=== PATIENT | male | born 1940 | race Caucasian/White ===

== ENCOUNTER 2016-08-19 18:26 | Inpatient (IN) | payer MEDICARE ==
[2016-08-19] MEDS ORDERED: ATIVAN ONE (18:28)
[2016-08-19] MEDS ORDERED: TYLENOL PR ONE ×2 (18:28→18:32)
[2016-08-19] MEDS ORDERED: ATIVAN IV ONE (18:32)
[2016-08-19] MEDS ORDERED: NACL 0.9% 1000 ML 1,000 ML IV ONE (18:36)
[2016-08-19] MEDS ORDERED: NACL 0.9% 1000 ML 1,000 ML ONE (18:38)
--- NOTE | 2016-08-19 18:50 | Emergency Department Report ---
ED General Adult HPI - General Chief complaint: Altered Mental Status Stated complaint: UNRESPONSIVE Time Seen by Provider: 08/19/16 18:43 Source: EMS Mode of arrival: Stretcher Limitations: No Limitations - History of Present Illness Initial comments: She is a 75-year-old male with history of hypertension, hyperlipidemia, coronary artery disease, CHF, TIAs and history of seizure disorder brought in by ambulance because of being confused and less talkative. Patient has apparent baseline of walking and talking. Story is entirely provided by EMS as well as son who arrived to the ER. Upon arrival to the ER the patient had a focal seizure of right upper extremity with right-sided gaze deviation. I came in and immediately upon patient arrival to the ER and assessed the patient and gave 2 mg IV Ativan with resolution of seizure in about 2-3 minutes. Her son patient had been acting normal during the day. He had not complained of anything including no cough, fever, chest pain. He had apparently become confused and called and was answering questions inappropriately. Upon arrival of EMS patient was also confused. - Related Data Home Medications Medication Instructions Recorded Confirmed Last Taken Lisinopril [Zestril TAB] 10 mg PO QDAY 02/02/15 08/19/16 Unknown levETIRAcetam [Keppra] 500 mg PO BID 08/19/16 08/19/16 Unknown Previous Rx's Medication Instructions Recorded Last Taken Type Atorvastatin [Lipitor] 40 mg PO QHS #30 tablet 08/27/14 Unknown Rx Carvedilol [Coreg] 6.25 mg PO BID #60 tablet 08/27/14 Unknown Rx Clopidogrel [Plavix] 75 mg PO QDAY #30 tablet 08/27/14 Unknown Rx Allergies Allergy/AdvReac Type Severity Reaction Status Date / Time No Known Allergies Allergy Verified 09/11/13 10:42 ED Review of Systems ROS: Stated complaint: UNRESPONSIVE Other details as noted in HPI Comment: Unobtainable due to pts medical conditions 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, pacemaker - Social History Smoking Status: Unknown if ever smoked - Medications Home Medications: Home Medications Medication Instructions Recorded Confirmed Last Taken Type Atorvastatin [Lipitor] 40 mg PO QHS #30 tablet 08/27/14 08/19/16 Unknown Rx Carvedilol [Coreg] 6.25 mg PO BID #60 tablet 08/27/14 08/19/16 Unknown Rx Clopidogrel [Plavix] 75 mg PO QDAY #30 tablet 08/27/14 08/19/16 Unknown Rx Lisinopril [Zestril TAB] 10 mg PO QDAY 02/02/15 08/19/16 Unknown History levETIRAcetam [Keppra] 500 mg PO BID 08/19/16 08/19/16 Unknown History ED Physical Exam - General Limitations: Altered Mental Status General appearance: other (actively seizing) - Head Head exam: Present: normal inspection - Eye Eye exam: Present: other (right sided gaze deviation) - Neck Neck exam: Present: normal inspection - Respiratory Respiratory exam: Present: normal lung sounds bilaterally - Cardiovascular Cardiovascular Exam: Present: regular rate, normal heart sounds - GI/Abdominal GI/Abdominal exam: Present: soft. Absent: tenderness - Extremities Exam Extremities exam: Present: normal capillary refill - Neurological Exam Neurological exam: Present: other (RUE tonic clonic seizure, right gaze deviation) - Skin Skin exam: Present: intact ED Course Vital Signs 08/19/16 08/19/16 08/19/16 18:31 18:47 19:27 Temperature 105.3 F H Pulse Rate 147 H 105 H 84 Pulse Rate [ Anterior Bilateral] Respiratory 24 22 29 H Rate Respiratory Rate [Anterior Bilateral] Blood Pressure 191/104 Blood Pressure 189/90 [Left] O2 Sat by Pulse 99 99 99 Oximetry 08/19/16 08/19/16 08/19/16 19:28 19:30 19:31 Temperature Pulse Rate 87 91 H 88 Pulse Rate [ Anterior Bilateral] Respiratory 29 H 30 H 30 H Rate Respiratory Rate [Anterior Bilateral] Blood Pressure 120/48 Blood Pressure [Left] O2 Sat by Pulse 99 100 99 Oximetry 08/20/16 08/20/16 00:52 01:06 Temperature Pulse Rate Pulse Rate [ 80 81 Anterior Bilateral] Respiratory Rate Respiratory 26 H 26 H Rate [Anterior Bilateral] Blood Pressure Blood Pressure [Left] O2 Sat by Pulse Oximetry - Reevaluation(s) Reevaluation #1: 08/19/16 19:34 She reassessed at bedside. Has not had any new seizure like activity. Heart rate has stabilized to 90s. Reevaluation #2: 08/19/16 23:14 Patient reassessed at bedside. He is more awake and alert but not at baseline. He can move all extremities. HR is 80s on monitor. Reevaluation #3: 08/20/16 01:54 Patient with wheezing at bedside, sat patient up, receiving albuterol treatment , moving around better, awake but still appears post ictal and not following commands; will admit due to not returning to baseline ED Medical Decision Making - Lab Data Result diagrams: 08/19/16 18:52 08/19/16 18:52 - Medical Decision Making IV, 2mg IV ativan, labs, cxr, ua, EKG, CT head CT head negative ekg shows paced rhythm The patient had an initial high fever and tachycardia, I believe that this is primarily due to his seizure. He down quickly after seizure resolved and his heart rate also normalized with the next half hour to hour. IV antibiotics were not initialized because of this. His lactate also supports this as it was initially very high and is lowered significantly without any intervention. Critical Care Time: Yes Critical care time in (mins) excluding proc time.: 30 Critical care attestation.: If time is entered above; I have spent that time in minutes in the direct care of this critically ill patient, excluding procedure time. ED Disposition Clinical Impression: Seizure Altered mental status Qualifiers: Altered mental status type: stupor Qualified Code(s): R40.1 - Stupor Disposition: OP ADMITTED IP TO THIS HOSP Is pt being admited?: Yes Condition: Serious Referrals: PRIMARY CARE,MD [Primary Care Provider] - 3-5 Days Time of Disposition: 01:51 (Spoke to Hospitalist)
[2016-08-19 19:06] LABS: Basophils % (Auto) 0.3 % (0.0-1.8); Eosinophils % (Auto) 0.7 % (0.0-4.3); Hematocrit 39.6 % (35.5-45.6); Hemoglobin 12.9 gm/dl (11.8-15.2); Mean Corpuscular HGB Conc 33 % (32-34); Mean Corpuscular Hemoglobin 30 pg (28-32); Mean Corpuscular Volume 92 fl (84-94); Platelet Count 116 K/mm3 (140-440); Red Cell Distribution Width 14.2 % (13.2-15.2); White Blood Count 9.6 K/mm3 (4.5-11.0)
[2016-08-19 19:30] LABS: Alanine Aminotransferase 21 units/L (7-56); Albumin 3.3 g/dL (3.9-5); Albumin/Globulin Ratio 1.1 %; Alkaline Phosphatase 102 units/L (35-129); BUN/Creatinine Ratio 15.45; Bilirubin,Total 0.8 mg/dL (0.1-1.2); Blood Urea Nitrogen 17 mg/dL (9-20); Calcium 7.3 mg/dL (8.4-10.2); Carbon Dioxide 18 mmol/L (22-30); Chloride 100.6 mmol/L (98-107); Glucose 168 mg/dL (75-100); Potassium 4.4 mmol/L (3.6-5.0); Sodium 135 mmol/L (137-145); Total Protein 6.3 g/dL (6.3-8.2)
[2016-08-19 19:36] LABS: Anion Gap 21 mmol/L
[2016-08-19 19:55] LABS: INR 1.33 (0.87-1.13)
[2016-08-19 19:56] LABS: Partial Thromboplastin Time 34.4 Sec. (24.2-36.6)
--- NOTE | 2016-08-19 20:43 | Cat Scan Report ---
FINAL REPORT PROCEDURE: CT HEAD/BRAIN WO CON TECHNIQUE: Computerized tomography of the head was performed without contrast material. HISTORY: seizure COMPARISON: 02/02/2015 FINDINGS: Skull and scalp: Normal. Paranasal sinuses: Normal. Ventricles and subarachnoid spaces: There is mild central and cortical atrophy. There is no hydrocephalus or asymmetry.. Cerebrum: No evidence of hemorrhage, acute infarction or mass. There are physiologic calcifications in the basal ganglia. Cerebellum and brainstem: No evidence of hemorrhage, acute infarction or mass. Vasculature: Normal. Comments: None. IMPRESSION: There is no acute intracranial abnormality.
[2016-08-20] MEDS ORDERED: PROVENTIL IH ONE (00:46)
[2016-08-20 01:44] LABS: Bilirubin,Urine NEG (Negative); Blood,Urine LG (Negative); Ketones,Urine NEG (Negative); Leukocyte Esterase,Urine NEG (Negative); Mucus,Urine FEW /HPF; Nitrite,Urine NEG (Negative); Protein,Urine >500 mg/dL (Negative); Urobilinogen,Urine < 2.0 mg/dL (<2.0)
[2016-08-20] MEDS ORDERED: ATIVAN IV PRN (03:27)
--- NOTE | 2016-08-20 03:36 | History and Physical Report ---
History of Present Illness Date of examination: 08/20/16 History of present illness: This is a 73-year-old man with history of hypertension, A. fib hyperlipidemia, coronary artery disease, seizure, diabetes and heart failure was brought to the emergency room for altered mental status. I tried to contact the family without success. Patient usually presents to the emergency with altered mental status, usually he has a seizure. It is unclear if he had a seizure today. Patient keeps repeating, "I am okay". Review of systems is unobtainable PAST SURGICAL HISTORY: Pacemaker, hernia repair,CABG, mitral valve replacement, Pacemaker upgrade to AICD SOCIAL HISTORY: Denies alcohol, tobacco, drugs FAMILY HISTORY: Lives with family Medications and Allergies Allergies Allergy/AdvReac Type Severity Reaction Status Date / Time No Known Allergies Allergy Verified 09/11/13 10:42 Home Medications Medication Instructions Recorded Confirmed Last Taken Type Atorvastatin [Lipitor] 40 mg PO QHS #30 tablet 08/27/14 08/19/16 Unknown Rx Carvedilol [Coreg] 6.25 mg PO BID #60 tablet 08/27/14 08/19/16 Unknown Rx Clopidogrel [Plavix] 75 mg PO QDAY #30 tablet 08/27/14 08/19/16 Unknown Rx Lisinopril [Zestril TAB] 10 mg PO QDAY 02/02/15 08/19/16 Unknown History levETIRAcetam [Keppra] 500 mg PO BID 08/19/16 08/19/16 Unknown History Active Meds: Active Medications Lorazepam (Ativan) 2 mg IV Q4H PRN PRN Reason: Seizures Exam - Physical Exam Narrative exam: General Apperance: The patient sitting in bed no acute distress HEENT: Normocephalic, atraumatic. Pupils equally round and reactive to light, extraocular movement intact, and no sclericterus or JVD or thyromegaly or nodule. Neck supple, no carotid bruit, mucous membranes moist, no exudate or erythema Heart: S1-S2, regular is rhythm Lungs: Clear to auscultation bilaterally, breathing comfortable Abdomen: Positive bowel sounds, soft, nontender, nondistended, no organomegaly Extremities: No edema cyanosis clubbing Skin: no rash, nodule, warm and dry Neuro: lethargic - Constitutional Vitals: Temp Pulse Resp BP Pulse Ox 98.4 F 70 22 102/54 100 08/20/16 01:36 08/20/16 02:01 08/20/16 02:01 08/20/16 02:01 08/20/16 02:01 Results - Labs CBC & Chem 7: 08/19/16 18:52 08/19/16 18:52 Labs: Abnormal lab results 08/19/16 08/19/16 08/19/16 Range/Units 18:52 18:52 18:52 Plt Count 116 L (140-440) K/mm3 Lymph % (Auto) 6.7 L (13.4-35.0) % Lymph # 0.6 L (1.2-5.4) K/mm3 Seg Neutrophils % 85.6 H (40.0-70.0) % Seg Neutrophils # 8.2 H (1.8-7.7) K/mm3 PT (12.2-14.9) Sec. INR (0.87-1.13) Sodium 135 L (137-145) mmol/L Carbon Dioxide 18 L (22-30) mmol/L Glucose 168 H (75-100) mg/dL Lactic Acid 4.1 H* (0.7-2.0) mmol/L Calcium 7.3 L (8.4-10.2) mg/dL NT-Pro-B Natriuret Pep (0-900) pg/mL Albumin 3.3 L (3.9-5) g/dL 08/19/16 08/19/16 Range/Units 19:22 21:37 Plt Count (140-440) K/mm3 Lymph % (Auto) (13.4-35.0) % Lymph # (1.2-5.4) K/mm3 Seg Neutrophils % (40.0-70.0) % Seg Neutrophils # (1.8-7.7) K/mm3 PT 16.4 H (12.2-14.9) Sec. INR 1.33 H (0.87-1.13) Sodium (137-145) mmol/L Carbon Dioxide (22-30) mmol/L Glucose (75-100) mg/dL Lactic Acid (0.7-2.0) mmol/L Calcium (8.4-10.2) mg/dL NT-Pro-B Natriuret Pep 4056 H (0-900) pg/mL Albumin (3.9-5) g/dL Assessment and Plan Altered mental status History of seizure A. fib Hyperlipidemia Hypertension Cardiomyopathy Thrombocytopenia History of CVA Admitted to medicine Will observe, do neurochecks hold off on further workup until more history is obtained DVT prophylaxis with SCD
[2016-08-20] MEDS ORDERED: KEPPRA 500 MG in D5W 100 ML IV ONE (03:42)
[2016-08-20] MEDS ORDERED: APRESOLINE IV PRN (03:44)
[2016-08-20] MEDS ORDERED: PROVENTIL IH PRN ×2 (04:00→08:00)
[2016-08-20] MEDS ORDERED: TYLENOL PO PRN (04:53)
[2016-08-20] MEDS ORDERED: ZOFRAN IV PRN (04:53)
[2016-08-20] MEDS ORDERED: DULCOLAX PR PRN (04:53)
[2016-08-20] MEDS ORDERED: MILK OF MAGNESIA PO PRN (04:53)
[2016-08-20] MEDS: PROVENTIL IH PRN ×2 (05:37→13:08)
--- NOTE | 2016-08-20 08:38 | XRay Report ---
Portable chest: There is mild enlargement of the heart. There is an ICD and pacer wire. There is a aortic valve prosthesis. There is vascular congestion and right pleural effusion. Compared to the prior study of March 11, 2016 the congestive changes are similar but the pleural effusions may be slightly less. Impression: Chronic CHF.
--- NOTE | 2016-08-20 10:59 | Progress Note ---
Assessment and Plan 1. Altered mental status secondary to metabolic encephalopathy: CT of the head showed no intracranial abnormalities. Continue with neuro checks 2. Seizure: Continue with Keppra 500 mg po bid. 3. A. fib: Stable. 4. Hyperlipidemia: Continue with statin. 5. Hypertension: Continue with antihypertensive meds. 6. History of CVA: Continue with clopidogrel 75 mg po qd, statin. 7. Thrombocytopenia: Stable 8. DVT prophylaxis: Continue with SCD 9. CHF:Continue with ALESSIO-I, beta bandar and diuretics. - Patient Problems (1) Altered mental status Current Visit: Yes Status: Acute Qualifiers: Altered mental status type: stupor Qualified Code(s): R40.1 - Stupor (2) Seizure Current Visit: Yes Status: Acute Subjective Date of service: 08/20/16 Interval history: Still confused. Objective - Constitutional Vitals: Vital Signs - 12hr 08/20/16 08/20/16 08/20/16 04:00 04:30 04:38 Temperature Pulse Rate 70 70 Pulse Rate [ Anterior Bilateral] Pulse Rate [ 70 Left Radial] Respiratory 26 H 26 H 20 Rate Respiratory Rate [Anterior Bilateral] Blood Pressure 109/55 103/59 Blood Pressure [Left Arm] O2 Sat by Pulse 97 99 Oximetry 08/20/16 08/20/16 08/20/16 05:37 05:52 07:00 Temperature 98.1 F Pulse Rate Pulse Rate [ 69 71 Anterior Bilateral] Pulse Rate [ 70 Left Radial] Respiratory 18 Rate Respiratory 18 18 Rate [Anterior Bilateral] Blood Pressure Blood Pressure 120/59 [Left Arm] O2 Sat by Pulse 99 Oximetry 08/20/16 09:08 Temperature Pulse Rate Pulse Rate [ Anterior Bilateral] Pulse Rate [ Left Radial] Respiratory Rate Respiratory Rate [Anterior Bilateral] Blood Pressure Blood Pressure [Left Arm] O2 Sat by Pulse 99 Oximetry General appearance: Present: no acute distress, well-nourished - EENT Eyes: PERRL, EOM intact ENT: hearing intact, clear oral mucosa Ears: bilateral: normal - Neck Neck: supple, normal ROM - Respiratory Respiratory effort: normal Respiratory: bilateral: CTA - Breasts Breasts: normal - Cardiovascular Rhythm: regular Heart Sounds: Present: S1 & S2. Absent: gallop, rub Extremities: pulses intact, No edema, normal color, Full ROM - Gastrointestinal General gastrointestinal: Present: soft, non-tender, non-distended, normal bowel sounds - Genitourinary Male genitourinary: normal - Integumentary Integumentary: clear, warm, dry - Musculoskeletal Musculoskeletal: 1, strength equal bilaterally - Neurologic Neurologic: moves all extremities - Psychiatric Psychiatric: other (still confused) - Labs CBC & Chem 7: 08/19/16 18:52 08/19/16 18:52
[2016-08-20] MEDS: ZESTRIL PO SCH (12:00)
[2016-08-20] MEDS: KEPPRA PO SCH ×2 (12:00→23:01)
[2016-08-20] MEDS: LOVENOX SUB-Q SCH (12:02)
[2016-08-20] MEDS: COREG PO SCH ×2 (12:02→23:00)
[2016-08-20] MEDS: DUONEB 0.5 MG-3 MG/3 ML SOLN IH SCH ×2 (13:51→19:22)
[2016-08-20] MEDS: PLAVIX PO SCH (17:45)
[2016-08-21] MEDS: PROVENTIL IH PRN (05:17)
[2016-08-21 06:39] LABS: Basophils % (Auto) 0.2 % (0.0-1.8); Eosinophils % (Auto) 0.1 % (0.0-4.3); Hematocrit 39.4 % (35.5-45.6); Hemoglobin 13.1 gm/dl (11.8-15.2); Mean Corpuscular HGB Conc 33 % (32-34); Mean Corpuscular Hemoglobin 30 pg (28-32); Mean Corpuscular Volume 90 fl (84-94); Red Blood Count 4.36 M/mm3 (3.65-5.03); White Blood Count 8.2 K/mm3 (4.5-11.0)
[2016-08-21 06:46] LABS: Platelet Count 85 K/mm3 (140-440)
[2016-08-21 06:59] LABS: BUN/Creatinine Ratio 22.72; Blood Urea Nitrogen 25 mg/dL (9-20); Calcium 8.3 mg/dL (8.4-10.2); Carbon Dioxide 24 mmol/L (22-30); Chloride 102.5 mmol/L (98-107); Glucose 112 mg/dL (75-100); Potassium 4.5 mmol/L (3.6-5.0); Sodium 139 mmol/L (137-145)
[2016-08-21 07:00] LABS: Anion Gap 17 mmol/L
[2016-08-21] MEDS: DUONEB 0.5 MG-3 MG/3 ML SOLN IH SCH ×3 (07:40→19:38)
[2016-08-21] MEDS: ZESTRIL PO SCH (11:06)
[2016-08-21] MEDS: KEPPRA PO SCH ×2 (11:06→23:11)
[2016-08-21] MEDS: COREG PO SCH ×2 (11:06→23:11)
[2016-08-21] MEDS: LOVENOX SUB-Q SCH (11:07)
[2016-08-21] MEDS: PLAVIX PO SCH (11:07)
--- NOTE | 2016-08-21 13:26 | Discharge Summary ---
Providers - Providers Date of Admission: 08/20/16 03:30 Date of discharge: 08/21/16 Attending physician: MINI MEYER Primary care physician: PATHOLOGY ASSISTANT Hospitalization Condition: Serious Disposition: DISCHARGED TO HOME OR SELFCARE Core Measure Documentation - Palliative Care Palliative Care/ Comfort Measures: Not Applicable - Core Measures Any of the following diagnoses?: none Exam - Constitutional Vitals: Temp Pulse Resp BP Pulse Ox 98.1 F 100 H 18 148/79 96 08/21/16 08:00 08/21/16 11:06 08/21/16 08:00 08/21/16 11:06 08/21/16 08:00 General appearance: Present: no acute distress, well-nourished - EENT Eyes: Present: PERRL, EOM intact - Neck Neck: Present: supple, normal ROM - Respiratory Respiratory effort: normal Respiratory: bilateral: diminished, negative: rales, rhonchi, wheezing - Cardiovascular Rhythm: regular Heart Sounds: Present: S1 & S2 - Extremities Extremities: no ischemia, pulses intact, pulses symmetrical Peripheral Pulses: within normal limits - Abdominal General gastrointestinal: Present: soft, non-tender, non-distended, normal bowel sounds - Integumentary Integumentary: Present: clear, warm - Musculoskeletal Musculoskeletal: strength equal bilaterally - Psychiatric Psychiatric: appropriate mood/affect - Neurologic Neurologic: moves all extremities Plan Activity: advance as tolerated, fall precautions Diet: other (cardiac diet) Additional Instructions: seizure precautions. f/u Physician Office Nurse as needed Follow up with: PRIMARY CARE, [Primary Care Provider] - 3-5 Days
[2016-08-21 22:25] LABS: Basophils % (Auto) 0.3 % (0.0-1.8); Eosinophils % (Auto) 0.2 % (0.0-4.3); Hematocrit 36.5 % (35.5-45.6); Hemoglobin 12.4 gm/dl (11.8-15.2); Mean Corpuscular HGB Conc 34 % (32-34); Mean Corpuscular Hemoglobin 30 pg (28-32); Mean Corpuscular Volume 90 fl (84-94); Red Blood Count 4.08 M/mm3 (3.65-5.03); Red Cell Distribution Width 14.2 % (13.2-15.2); White Blood Count 6.3 K/mm3 (4.5-11.0)
[2016-08-21 22:27] LABS: Platelet Count 89 K/mm3 (140-440)
[2016-08-21] MEDS ORDERED: LASIX IV ONE (23:41)
--- NOTE | 2016-08-22 00:12 | Admit Criteria Form ---
Admission Criteria Documentation: SEIZURE Clinical Indications for Admission to Inpatient Care (Place 'X' for any and all applicable criteria): Admission is indicated for seizure and ANY ONE of the following(1)(2)(3)(4)(5): [X ]I. Inpatient admission required rather than observation care (Also use Seizure: Observation Care Criteria as appropriate) because of ANY ONE of the following: [ X]a) Altered mental status that is severe or persistent [ ]b) New focal neurologic deficit that is severe or persistent [ ]c) Metabolic disorder (eg, hypoglycemia, hyponatremia) that is severe or persistent [ ]d) Recurrent seizure [ ]e) Outpatient antiseizure regimen cannot be established (eg , patient cannot tolerate medication, initiation requires inpatient care) [ ]f) Need for ongoing intravenous infusion of antiseizure medication [ ]g) Cardiac arrhythmias of immediate concern [ ]h) Cerebral bleeding, hydrocephalus, or vasospasm monitoring (14) [ ]i) Increased intracranial pressure or cerebral edema monitoring (15) [ ]j) Other treatment or monitoring requiring inpatient admission [ ]II. Status epilepticus [A] or repetitive seizures not controlled with emergent treatment (6)(8) [ ]III. Brain disorder (eg, tumor, edema, and hydrocephalus) that requiring monitoring or intervention available only at inpatient level of care. [ ]IV. Brain insult (eg, severe trauma, stroke, drug toxicity, or withdrawal) that requires monitoring or intervention available only at inpatient level of care (10)(11) Extended stay beyond goal length of stay may be needed for (22) [ ]a) Complications of status epilepticus [ ]b) Refractory status epilepticus [ ]c) Etiology-specific therapy for conditions such as [employer]ER[employer] infection, head injury,eclampsia, severe metabolic abnormalities, and brain tumor [ ]d) Residual neurologic damage, [ ]e) Initiation of significant change to anticonvulsant treatment [ ]f) Older patients (65 years or older) [ ]g) Patient requiring intubation (eg, to protect airway) The original [email or web address] content created by [employer] has been revised. The portions of the content which have been revised are identified through the use of italic text or in bold, and [facility] has neither reviewed nor approved the modified material. All other unmodified content is copyright [facility] [employer]. Please see references footnoted in the original [facility] edition 2016 Admission Criteria Met: Yes
[2016-08-22] MEDS ORDERED: LASIX IV ONE ×3 (06:27→18:10)
[2016-08-22] MEDS: DUONEB 0.5 MG-3 MG/3 ML SOLN IH SCH ×3 (07:26→20:10)
--- NOTE | 2016-08-22 09:56 | XRay Report ---
AP CHEST History: Abnormal breath sounds. Findings: Moderate cardiomegaly, mild pulmonary venous congestion and small right pleural effusion have not significantly changed since 08/19/16. No consolidation or pneumothorax. The pacemaker device is unchanged. Impression: No change in mild CHF since 08/19/16.
[2016-08-22] MEDS: PLAVIX PO SCH (10:13)
[2016-08-22] MEDS: KEPPRA PO SCH ×2 (11:42→22:41)
[2016-08-22] MEDS: LOVENOX SUB-Q SCH (11:42)
[2016-08-22] MEDS: ZESTRIL PO SCH (11:43)
[2016-08-22] MEDS: COREG PO SCH ×2 (11:44→22:41)
--- NOTE | 2016-08-22 18:12 | Progress Note ---
Assessment and Plan Assessment and plan: --Acute on chronic congestive heart failure systolic dysfunction ejection fraction 10-15% Gentle diuresis, continue anti-failure medications input-output monitoring --History of seizure disorder, stable on antiseizure medications -- Altered mental status secondary to metabolic encephalopathy: CT of the head negative Now back to baseline --History of atrial fibrillation; rate controlled not on chronic anticoagulation --Dyslipidemia stable on medications --Hypertension well-controlled, continue current antihypertensives and when necessary medications --History of CVA continue her Plavix and statin --DVT prophylaxis with Lovenox and SCDs -- Altered mental status secondary to metabolic encephalopathy: CT of the head negative Now back to baseline Physical therapy occupational therapy Initially wanted to discharge the patient today however patient had shortness of breath and discharge is held Possible discharge in 1-2 days if stable --Full CODE STATUS Plan of care discussed with the patient and the family member as well as the nurse History Interval history: Patient seen and evaluated medical records reviewed Patient complains of mild shortness of breath and generalized weakness Alert awake oriented 3 not in acute distress Vital signs reviewed Hospitalist Physical - Constitutional Vitals: Temp Pulse Resp BP Pulse Ox 100.1 F H 93 H 18 136/81 95 08/22/16 16:00 08/22/16 16:00 08/22/16 16:00 08/22/16 16:00 08/22/16 16:00 General appearance: Present: no acute distress, well-nourished - EENT Eyes: Present: PERRL, EOM intact - Neck Neck: Present: supple, normal ROM - Respiratory Respiratory effort: normal Respiratory: bilateral: diminished, rales, negative: rhonchi, wheezing - Cardiovascular Rhythm: regular Heart Sounds: Present: S1 & S2 - Extremities Extremities: no ischemia, pulses intact, pulses symmetrical Extremity abnormal: edema Peripheral Pulses: within normal limits - Abdominal General gastrointestinal: soft, non-tender, non-distended, normal bowel sounds - Integumentary Integumentary: Present: clear, warm - Psychiatric Psychiatric: appropriate mood/affect, cooperative, other (confused at times) - Neurologic Neurologic: CNII-XII intact, moves all extremities Results - Labs CBC & Chem 7: 08/21/16 21:56 08/21/16 05:29 Labs: Laboratory Last Values WBC 6.3 K/mm3 (4.5-11.0) 08/21/16 21:56 RBC 4.08 M/mm3 (3.65-5.03) 08/21/16 21:56 Hgb 12.4 gm/dl (11.8-15.2) 08/21/16 21:56 Hct 36.5 % (35.5-45.6) 08/21/16 21:56 MCV 90 fl (84-94) 08/21/16 21:56 MCH 30 pg (28-32) 08/21/16 21:56 MCHC 34 % (32-34) 08/21/16 21:56 RDW 14.2 % (13.2-15.2) 08/21/16 21:56 Plt Count 89 K/mm3 (140-440) L 08/21/16 21:56 Lymph % (Auto) 5.8 % (13.4-35.0) L 08/21/16 21:56 Cross % (Auto) 8.4 % (0.0-7.3) H 08/21/16 21:56 Eos % (Auto) 0.2 % (0.0-4.3) 08/21/16 21:56 Baso % (Auto) 0.3 % (0.0-1.8) 08/21/16 21:56 Lymph # 0.4 K/mm3 (1.2-5.4) L 08/21/16 21:56 Cross # 0.5 K/mm3 (0.0-0.8) 08/21/16 21:56 Eos # 0.0 K/mm3 (0.0-0.4) 08/21/16 21:56 Baso # 0.0 K/mm3 (0.0-0.1) 08/21/16 21:56 Seg Neutrophils % 85.3 % (40.0-70.0) H 08/21/16 21:56 Seg Neutrophils # 5.4 K/mm3 (1.8-7.7) 08/21/16 21:56 PT 16.4 Sec. (12.2-14.9) H 08/19/16 19:22 INR 1.33 (0.87-1.13) H 08/19/16 19:22 APTT 34.4 Sec. (24.2-36.6) 08/19/16 19:22 Sodium 139 mmol/L (137-145) 08/21/16 05:29 Potassium 4.5 mmol/L (3.6-5.0) 08/21/16 05:29 Chloride 102.5 mmol/L (98-107) 08/21/16 05:29 Carbon Dioxide 24 mmol/L (22-30) 08/21/16 05:29 Anion Gap 17 mmol/L 08/21/16 05:29 BUN 25 mg/dL (9-20) H 08/21/16 05:29 Creatinine 1.1 mg/dL (0.8-1.5) 08/21/16 05:29 Estimated GFR > 60 ml/min 08/21/16 05:29 BUN/Creatinine Ratio 22.72 % 08/21/16 05:29 Glucose 112 mg/dL (75-100) H 08/21/16 05:29 Lactic Acid 1.8 mmol/L (0.7-2.0) 08/19/16 21:37 Calcium 8.3 mg/dL (8.4-10.2) L 08/21/16 05:29 Total Bilirubin 0.8 mg/dL (0.1-1.2) 08/19/16 18:52 AST 28 units/L (5-40) 08/19/16 18:52 ALT 21 units/L (7-56) 08/19/16 18:52 Alkaline Phosphatase 102 units/L (35-129) 08/19/16 18:52 Troponin T < 0.010 ng/mL (0.00-0.029) 08/19/16 18:52 NT-Pro-B Natriuret Pep 3081 pg/mL (0-900) H 08/21/16 21:56 Total Protein 6.3 g/dL (6.3-8.2) 08/19/16 18:52 Albumin 3.3 g/dL (3.9-5) L 08/19/16 18:52 Albumin/Globulin Ratio 1.1 % 08/19/16 18:52 Urine Color Yellow (Yellow) 08/19/16 21:18 Urine Turbidity Clear (Clear) 08/19/16 21:18 Urine pH 6.0 (5.0-7.0) 08/19/16 21:18 Ur Specific Olla 1.015 (1.003-1.030) 08/19/16 21:18 Urine Protein >500 mg/dL (Negative) 08/19/16 21:18 Urine Glucose (UA) Neg mg/dL (Negative) 08/19/16 21:18 Urine Ketones Neg mg/dL (Negative) 08/19/16 21:18 Urine Blood Lg (Negative) 08/19/16 21:18 Urine Nitrite Neg (Negative) 08/19/16 21:18 Urine Bilirubin Neg (Negative) 08/19/16 21:18 Urine Urobilinogen < 2.0 mg/dL (<2.0) 08/19/16 21:18 Ur Leukocyte Esterase Neg (Negative) 08/19/16 21:18 Urine WBC (Auto) 2.0 /HPF (0.0-6.0) 08/19/16 21:18 Urine RBC (Auto) 32.0 /HPF (0.0-6.0) 08/19/16 21:18 U Epithel Cells (Auto) < 1.0 /HPF (0-13.0) 08/19/16 21:18 Amorphous Crystals 1+ 08/19/16 21:18 Urine Mucus Few /HPF 08/19/16 21:18
--- NOTE | 2016-08-22 18:23 | Progress Note ---
Assessment and Plan Assessment and plan: -- Altered mental status secondary to metabolic encephalopathy: CT of the head negative Now back to baseline --Acute on chronic congestive heart failure systolic dysfunction ejection fraction 10-15% Gentle diuresis, continue anti-failure medications input-output monitoring --History of seizure disorder, stable on antiseizure medications --History of atrial fibrillation; rate controlled not on chronic anticoagulation --Dyslipidemia stable on medications --Hypertension well-controlled, continue current antihypertensives and when necessary medications --History of CVA continue her Plavix and statin --Full CODE STATUS Plan of care discussed with the patient and the family member as well as the nurse --DVT prophylaxis with Lovenox and SCDs -- Altered mental status secondary to metabolic encephalopathy: CT of the head negative Now back to baseline Physical therapy occupational therapy Initially wanted to discharge the patient today however patient had shortness of breath and discharge is held Possible discharge in 1-2 days if stable History Interval history: Patient seen and evaluated medical records reviewed Patient's discharge was held yesterday because of shortness of breath Today feels slightly better after receiving IV Lasix, denies chest pain or palpitations Alert and awake not in acute distress Vital signs reviewed Hospitalist Physical - Constitutional Vitals: Temp Pulse Resp BP Pulse Ox 100.1 F H 93 H 18 136/81 95 08/22/16 16:00 08/22/16 16:00 08/22/16 16:00 08/22/16 16:00 08/22/16 16:00 General appearance: Present: no acute distress, well-nourished - EENT Eyes: Present: PERRL, EOM intact - Neck Neck: Present: supple, normal ROM - Respiratory Respiratory effort: normal Respiratory: bilateral: diminished, rales, negative: rhonchi, wheezing - Cardiovascular Rhythm: regular Heart Sounds: Present: S1 & S2 - Extremities Extremities: no ischemia, pulses intact, pulses symmetrical Peripheral Pulses: within normal limits - Abdominal General gastrointestinal: soft, non-tender, non-distended, normal bowel sounds - Integumentary Integumentary: Present: clear, warm - Psychiatric Psychiatric: appropriate mood/affect, cooperative - Neurologic Neurologic: CNII-XII intact, moves all extremities Results - Labs CBC & Chem 7: 08/21/16 21:56 08/21/16 05:29 Labs: Laboratory Last Values WBC 6.3 K/mm3 (4.5-11.0) 08/21/16 21:56 RBC 4.08 M/mm3 (3.65-5.03) 08/21/16 21:56 Hgb 12.4 gm/dl (11.8-15.2) 08/21/16 21:56 Hct 36.5 % (35.5-45.6) 08/21/16 21:56 MCV 90 fl (84-94) 08/21/16 21:56 MCH 30 pg (28-32) 08/21/16 21:56 MCHC 34 % (32-34) 08/21/16 21:56 RDW 14.2 % (13.2-15.2) 08/21/16 21:56 Plt Count 89 K/mm3 (140-440) L 08/21/16 21:56 Lymph % (Auto) 5.8 % (13.4-35.0) L 08/21/16 21:56 [place] % (Auto) 8.4 % (0.0-7.3) H 08/21/16 21:56 Eos % (Auto) 0.2 % (0.0-4.3) 08/21/16 21:56 Baso % (Auto) 0.3 % (0.0-1.8) 08/21/16 21:56 Lymph # 0.4 K/mm3 (1.2-5.4) L 08/21/16 21:56 [place] # 0.5 K/mm3 (0.0-0.8) 08/21/16 21:56 Eos # 0.0 K/mm3 (0.0-0.4) 08/21/16 21:56 Baso # 0.0 K/mm3 (0.0-0.1) 08/21/16 21:56 Seg Neutrophils % 85.3 % (40.0-70.0) H 08/21/16 21:56 Seg Neutrophils # 5.4 K/mm3 (1.8-7.7) 08/21/16 21:56 PT 16.4 Sec. (12.2-14.9) H 08/19/16 19:22 INR 1.33 (0.87-1.13) H 08/19/16 19:22 APTT 34.4 Sec. (24.2-36.6) 08/19/16 19:22 Sodium 139 mmol/L (137-145) 08/21/16 05:29 Potassium 4.5 mmol/L (3.6-5.0) 08/21/16 05:29 Chloride 102.5 mmol/L (98-107) 08/21/16 05:29 Carbon Dioxide 24 mmol/L (22-30) 08/21/16 05:29 Anion Gap 17 mmol/L 08/21/16 05:29 BUN 25 mg/dL (9-20) H 08/21/16 05:29 Creatinine 1.1 mg/dL (0.8-1.5) 08/21/16 05:29 Estimated GFR > 60 ml/min 08/21/16 05:29 BUN/Creatinine Ratio 22.72 % 08/21/16 05:29 Glucose 112 mg/dL (75-100) H 08/21/16 05:29 Lactic Acid 1.8 mmol/L (0.7-2.0) 08/19/16 21:37 Calcium 8.3 mg/dL (8.4-10.2) L 08/21/16 05:29 Total Bilirubin 0.8 mg/dL (0.1-1.2) 08/19/16 18:52 AST 28 units/L (5-40) 08/19/16 18:52 ALT 21 units/L (7-56) 08/19/16 18:52 Alkaline Phosphatase 102 units/L (35-129) 08/19/16 18:52 Troponin T < 0.010 ng/mL (0.00-0.029) 08/19/16 18:52 NT-Pro-B Natriuret Pep 3081 pg/mL (0-900) H 08/21/16 21:56 Total Protein 6.3 g/dL (6.3-8.2) 08/19/16 18:52 Albumin 3.3 g/dL (3.9-5) L 08/19/16 18:52 Albumin/Globulin Ratio 1.1 % 08/19/16 18:52 Urine Color Yellow (Yellow) 08/19/16 21:18 Urine Turbidity Clear (Clear) 08/19/16 21:18 Urine pH 6.0 (5.0-7.0) 08/19/16 21:18 Ur Specific [place] 1.015 (1.003-1.030) 08/19/16 21:18 Urine Protein >500 mg/dL (Negative) 08/19/16 21:18 Urine Glucose (UA) Neg mg/dL (Negative) 08/19/16 21:18 Urine Ketones Neg mg/dL (Negative) 08/19/16 21:18 Urine Blood Lg (Negative) 08/19/16 21:18 Urine Nitrite Neg (Negative) 08/19/16 21:18 Urine Bilirubin Neg (Negative) 08/19/16 21:18 Urine Urobilinogen < 2.0 mg/dL (<2.0) 08/19/16 21:18 Ur Leukocyte Esterase Neg (Negative) 08/19/16 21:18 Urine WBC (Auto) 2.0 /HPF (0.0-6.0) 08/19/16 21:18 Urine RBC (Auto) 32.0 /HPF (0.0-6.0) 08/19/16 21:18 U Epithel Cells (Auto) < 1.0 /HPF (0-13.0) 08/19/16 21:18 Amorphous Crystals 1+ 08/19/16 21:18 Urine Mucus Few /HPF 08/19/16 21:18
[2016-08-23] MEDS: DUONEB 0.5 MG-3 MG/3 ML SOLN IH SCH ×2 (07:25→13:10)
[2016-08-23] MEDS ORDERED: LASIX IV SCH (10:00)
[2016-08-23] MEDS: COREG PO SCH (10:10)
[2016-08-23] MEDS: KEPPRA PO SCH (10:11)
[2016-08-23] MEDS: LOVENOX SUB-Q SCH (10:12)
[2016-08-23] MEDS: ZESTRIL PO SCH (10:12)
[2016-08-23] MEDS: PLAVIX PO SCH (10:52)
--- NOTE | 2016-08-23 14:02 | Discharge Summary ---
Providers - Providers Date of Admission: 08/20/16 03:30 Date of discharge: 08/23/16 Attending physician: AUDRA MISTRY 08/22/16 18:09 Physical Therapy Evaluation and Treat [CONS] Routine Comment: Reason For Exam: debility/AMS,CHF Primary care physician: E[employer]MENT [employer]IST Hospitalization Condition: Fair Disposition: DC/TX HOME UNDER HOME HEALTH Time spent for discharge: 32 min Core Measure Documentation - Palliative Care Palliative Care/ Comfort Measures: Not Applicable - Core Measures Any of the following diagnoses?: heart failure - Heart Failure Discharge Requirements ALESSIO/ARB for LVSD if EF <40%: Yes Beta badnar at discharge: Yes Exam - Constitutional Vitals: Temp Pulse Resp BP Pulse Ox 98.1 F 82 20 103/63 94 08/23/16 13:00 08/23/16 13:20 08/23/16 13:20 08/23/16 13:00 08/23/16 13:00 General appearance: Present: no acute distress, well-nourished - EENT Eyes: Present: PERRL, EOM intact - Neck Neck: Present: supple, normal ROM - Respiratory Respiratory effort: normal Respiratory: bilateral: diminished, negative: rales, rhonchi, wheezing - Cardiovascular Rhythm: regular Heart Sounds: Present: S1 & S2 - Extremities Extremities: no ischemia, pulses intact, pulses symmetrical Peripheral Pulses: within normal limits - Abdominal General gastrointestinal: Present: soft, non-tender, non-distended, normal bowel sounds - Integumentary Integumentary: Present: clear, warm - Musculoskeletal Musculoskeletal: strength equal bilaterally, generalized weakness - Psychiatric Psychiatric: appropriate mood/affect, cooperative - Neurologic Neurologic: moves all extremities Plan Activity: advance as tolerated, fall precautions Diet: low cholesterol, low salt Special Instructions: physical therapy Follow up with: LUPE PICKENS MD [Primary Care Provider] - 3-5 Days MARCE KELLEY MD [Staff Physician] - 7 Days Prescriptions: Furosemide [Lasix] 20 mg PO QDAY #30 tablet
[2016-08-23 17:13] VITALS: BP 128/71
== END 2016-08-23 20:00 | disposition home health service (06) | DRG 291 ==
LOC: ED 18:26 → 3A 08-20 03:30
PROVIDERS: ADMIT Internal Medicine; ATTEND Internal Medicine
DX: I11.0 Hypertensive heart disease with heart failure (principal); G93.41 Metabolic encephalopathy; I50.23 Acute on chronic systolic (congestive) heart failure; I42.9 Cardiomyopathy, unspecified; I48.91 Unspecified atrial fibrillation; E78.5 Hyperlipidemia, unspecified; I25.10 Atherosclerotic heart disease of native coronary artery without angina pectoris; G40.909 Epilepsy, unspecified, not intractable, without status epilepticus; E11.9 Type 2 diabetes mellitus without complications; D69.6 Thrombocytopenia, unspecified; Z79.01 Long term (current) use of anticoagulants; Z86.73 Personal history of transient ischemic attack (TIA), and cerebral infarction without residual deficits; Z79.899 Other long term (current) drug therapy; I25.2 Old myocardial infarction; Z95.1 Presence of aortocoronary bypass graft; Z95.2 Presence of prosthetic heart valve; Z95.810 Presence of automatic (implantable) cardiac defibrillator
CPT/HCPCS: 36415; 70450; 71010; 80048; 80053; 81001; 82140; 83880; 84484; 85025; 85610; 85730; 87040; 87086; 93005; 93010; 94640; 94667; 94668; 94669; 94760; 96365; 96375; A9270-GY; J1650; J1940; J1953; J2060; J7030

== ENCOUNTER 2016-08-26 13:09 | Inpatient (IN) | payer MEDICARE ==
[2016-08-26] MEDS ORDERED: ATROVENT IH ONE (13:55)
[2016-08-26] MEDS ORDERED: PROVENTIL IH ONE (13:55)
[2016-08-26] MEDS ORDERED: MAGNESIUM SULFATE 2GM/50ML 50 ML IV ONE (13:55)
--- NOTE | 2016-08-26 14:03 | XRay Report ---
Chest 2 views: Compared to 08/21/16. History: Shortness of breath. Findings: Cardiomegaly. Trachea is midline. Stable pacemaker. Mild pulmonary vascular congestion without significant interval change. No consolidation. Minimal right pleural effusion. Impression: No significant interval change.
[2016-08-26 14:17] LABS: Basophils % (Auto) 0.4 % (0.0-1.8); Eosinophils % (Auto) 0.7 % (0.0-4.3); Hematocrit 38.1 % (35.5-45.6); Hemoglobin 12.7 gm/dl (11.8-15.2); Mean Corpuscular HGB Conc 33 % (32-34); Mean Corpuscular Hemoglobin 30 pg (28-32); Mean Corpuscular Volume 89 fl (84-94); Platelet Count 209 K/mm3 (140-440); Red Blood Count 4.28 M/mm3 (3.65-5.03); Red Cell Distribution Width 13.9 % (13.2-15.2)
--- NOTE | 2016-08-26 14:24 | Emergency Department Report ---
HPI - General Chief Complaint: Upper Respiratory Infection Time Seen by Provider: 08/26/16 13:37 - HPI HPI: This is a 76-year-old Yi male who presents to the emergency department with complaint of a three-day history of shortness of breath, wheezing, a cough that occurs in coughing fits. Patient is unable to speaking with the patient's son is here bedside and translating for him. Patient denies any chest pain but has been feeling tight with breathing. His been feeling weak the past few days as well. The patient was recently admitted to [facility] for similar symptoms but also at that time he had some altered mental status. He was discharged a few days ago. The patient went to see his primary care doctor at [place] but he was sent in here for further evaluation as he looked like he was having trouble breathing and controlling his cough. He has a past medical history of hypertension, atrial fibrillation, coronary artery disease, diabetes and CHF. No sick contacts at home. No recent travel. He did not take anything and was not given anything for symptoms prior to presentation. 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, pacemaker - Social History Smoking Status: Former Smoker Substance Use Type: None - Medications Home Medications: Home Medications Medication Instructions Recorded Confirmed Last Taken Type Atorvastatin [Lipitor] 40 mg PO QHS #30 tablet 08/27/14 08/19/16 Unknown Rx Carvedilol [Coreg] 6.25 mg PO BID #60 tablet 08/27/14 08/19/16 Unknown Rx Clopidogrel [Plavix] 75 mg PO QDAY #30 tablet 08/27/14 08/19/16 Unknown Rx Lisinopril [Zestril TAB] 10 mg PO QDAY 02/02/15 08/19/16 Unknown History levETIRAcetam [Keppra TAB] 500 mg PO BID 08/19/16 08/19/16 Unknown History Furosemide [Lasix] 20 mg PO QDAY #30 tablet 08/22/16 Unknown Rx ED Review of Systems ROS: Stated complaint: DIFF BREATHING/SOB Other details as noted in HPI Comment: All other systems reviewed and negative Constitutional: chills, weakness Eyes: denies: eye pain, eye discharge, vision change ENT: denies: ear pain, throat pain Respiratory: cough, shortness of breath, wheezing Cardiovascular: denies: chest pain, edema Gastrointestinal: denies: abdominal pain, nausea, diarrhea Genitourinary: denies: urgency, dysuria Musculoskeletal: denies: back pain, joint swelling, arthralgia Skin: denies: rash, lesions Neurological: denies: headache, weakness, paresthesias Physical Exam - Physical Exam Vital Signs: Vital Signs 08/26/16 08/26/16 13:15 13:35 Temperature 99.8 F H Pulse Rate 110 H Respiratory 36 H 36 H Rate Blood Pressure 190/120 O2 Sat by Pulse 97 97 Oximetry Physical Exam: GENERAL: The patient is well-developed well-nourished. HEENT: Normocephalic. Atraumatic. Extraocular motions are intact. Patient has moist mucous membranes. NECK: Supple. Trachea is midline. CHEST/LUNGS: Patient has coarse breath sounds at the chest. There is moderate wheezing throughout the chest as well. A productive sounding cough is heard during examination. There is some tachypnea but no accessory muscle use. HEART/CARDIOVASCULAR: Regular. There is mild tachycardia. There is no gallop rub or murmur. ABDOMEN: Abdomen is soft, nontender. Patient has normal bowel sounds. There is no abdominal distention. SKIN: There is no rash. There is no diaphoresis. NEURO: The patient is awake, alert. The patient is cooperative. The patient has no focal neurologic deficits. The patient has normal speech. MUSCULOSKELETAL: There is no tenderness or deformity. There is no limitation range of motion. There is no evidence of acute injury. ED Course Vital Signs 08/26/16 08/26/16 13:15 13:35 Temperature 99.8 F H Pulse Rate 110 H Respiratory 36 H 36 H Rate Blood Pressure 190/120 O2 Sat by Pulse 97 97 Oximetry ED Medical Decision Making - Lab Data Result diagrams: 08/26/16 13:50 08/26/16 13:50 - EKG Data -: EKG Interpreted by Me - EKG Data When compared to previous EKG there are: no significant change Interpretation: unchanged when compared t (08/19/16), other (electronic pacemaker , 112 bpm, no obvious ST elevation NH, left axis deviation, left bundle branch block, unchanged from previous) - Radiology Data Radiology results: report reviewed, image reviewed interpreted by me: Chest x-ray did not show any acute process. Heart is normal shape and size. No effusions. No pneumothorax. No signs of pneumonia seen. CT angiography of the chest shows no evidence of pulmonary embolism. Moderate right-sided pleural effusion. Bilateral ground glass patchy opacities probably related to pneumonitis among other causes. - Medical Decision Making 76-year-old male presents to the emergency department with a few days of shortness of breath, wheezing and some generalized weakness. Patient appears to have acute on chronic CHF and some bronchitis and/or pneumonitis. Patient has very coarse breath sounds as well as some wheezing throughout the chest and a productive sounding cough. He does have a possible low-grade fever with a oral temperature of 99.8. Chest x-ray did not show any acute process however. Patient's labs show a few abnormalities. There is some mild hyperglycemia with a blood sugar of 212. The patient does not appear to be in DKA or HHNK. Patient has a BNP of 3800. His d-dimer is greater than 1000. For this reason a CT angiography of the chest was done that came back showing a right-sided 100 sized pleural effusion and some bilateral groundglass opacities consistent with a pneumonitis among other possible causes. Patient was given some IV Solu- Medrol, magnesium, breathing treatments, IV Lasix. After all these treatments the patient still appears to have some signs of bronchospasm and what appears to be this acute on chronic CHF. For these reasons patient will be admitted to hospital and has been accepted for admission by the hospitalist, Dr. Etienne. - Differential Diagnosis CHF, pneumonia, PE, NH, bronchitis, pneumonia Critical Care Time: No Critical care attestation.: If time is entered above; I have spent that time in minutes in the direct care of this critically ill patient, excluding procedure time. ED Disposition Clinical Impression: Bronchospasm CHF, acute on chronic Qualifiers: Congestive heart failure type: unspecified congestive heart failure type Qualified Code(s): I50.9 - Heart failure, unspecified HTN (hypertension) Qualifiers: Hypertension type: unspecified secondary hypertension Qualified Code(s): I15.9 - Secondary hypertension, unspecified; I15 - Secondary hypertension Dyspnea Qualifiers: Dyspnea type: unspecified Qualified Code(s): R06.00 - Dyspnea, unspecified Disposition: OP ADMITTED IP TO THIS [facility] Is pt being admited?: Yes Condition: Stable Time of Disposition: 17:43
[2016-08-26 14:25] LABS: BUN/Creatinine Ratio 21.25; Blood Urea Nitrogen 17 mg/dL (9-20); Calcium 8.2 mg/dL (8.4-10.2); Carbon Dioxide 21 mmol/L (22-30); Chloride 98.7 mmol/L (98-107); Glucose 212 mg/dL (75-100); Potassium 4.3 mmol/L (3.6-5.0); Sodium 135 mmol/L (137-145)
[2016-08-26 14:26] LABS: Anion Gap 20 mmol/L
[2016-08-26] MEDS ORDERED: NACL ONE ×2 (15:11→15:12)
[2016-08-26] MEDS ORDERED: TYLENOL PO ONE (16:01)
--- NOTE | 2016-08-26 16:03 | Cat Scan Report ---
CTA chest: History: Shortness of breath, elevated d-dimer. Findings: No evidence of acute pulmonary embolism. Moderate right pleural effusion. No pericardial effusion. No mediastinal mass or adenopathy. Dilated pulmonary arteries from pulmonary hypertension. No pulmonary embolism. Patchy groundglass opacities right and left lung. More pronounced right apex. Impression: No evidence of pulmonary embolism. Moderate right pleural effusion. Bilateral groundglass patchy opacities probably related to pneumonitis among other causes.
[2016-08-26 16:22] LABS: INR 1.12 (0.87-1.13); Partial Thromboplastin Time 34.3 Sec. (24.2-36.6)
[2016-08-26] MEDS ORDERED: LASIX IV ONE (16:30)
[2016-08-26 16:38] LABS: ISTAT Base Excess -2; ISTAT HCO3 23.2; ISTAT PCO2 40.7 (35-45); ISTAT PH 7.363 (7.35-7.45); ISTAT PO2 92 (80-105); ISTAT SO2 97; ISTAT TCO2 24
--- NOTE | 2016-08-26 16:48 | Admit Criteria Form ---
Admission Criteria Documentation: HEART FAILURE: COMMON COMPLICATIONS Clinical Indications for Inpatient Care (Place 'X' for any and all applicable criteria): Ongoing inpatient care may be indicated for heart failure with ANY ONE of the following (1)(2)(3)(4)(5): [ ]I. Ongoing need for care for primary condition requiring frequent therapy adjustments because of changes in cardiac function (eg, drug dosage changes for drugs that are renally metabolized) [ ]II. New-onset heart failure [ ]III. Heart failure with decreased urine output not responsive to attempts to optimize volume status [ ]IV. Acute cardiac ischemia causing or associated with failure [ X]V. Complications of heart failure, including ANY ONE of the following: [ ]a) Pericardial effusion [ ]b) Symptomatic pleural effusion [ ]c) O2 saturation <90% or PO2 < 60 mm Hg (8.0 kPa) on room air or require baseline supplemental O2 [X ]d) Tachypnea [X ]e) Dyspnea [ ]f) Syncope [ ]g) Change in mental status [ ]h) Acute renal insufficiency that is severe (reduction of more than 50% in estimated glomerular filtration rate from baseline) or progressive reduction of more than 25% in estimated glomerular filtration rate from baseline, with creatinine continuing to rise) [ ]i) Hemodynamic instability [ ]j) Anasarca [ ]k) Clinically significant metabolic abnormalities due to heart failure (eg, new-onset metabolic acidosis) Extended stay beyond goal length of stay for primary condition may be needed until ALL of the following are present(1)(3): [ ]a) Stable and effective diuretic regimen established (or patient on stable dialysis regimen if in chronic renal failure) [ ]b) Breathing comfortably at rest [ ]c) Saturation of arterial oxygen greater than 90% or at acceptable baseline [ ]d) Pulmonary edema absent or improved [ ]e) Hemodynamic stability [ ]f) Volume status acceptable on oral medication [ ]g) Peripheral or sacral edema absent or improved [ ]h) Renal function stable and manageable at a lower level of care [ ]i) Complications (eg, pleural effusion) resolved or manageable at a lower level of care [ ]j) Patient or caregiver has received written discharge instructions or educational material addressing activity level, diet, discharge medications, follow-up appointment, weight monitoring, and what to do if symptoms worsen The original [employer] content created by [employer] has been revised. The portions of the content which have been revised are identified through the use of italic text or in bold, and [facility] has neither reviewed nor approved the modified material.All other unmodified content is copyright [facility]. Please see references footnoted in the original [facility] edition 2016 Admission Criteria Met: Yes
[2016-08-26] MEDS ORDERED: LEVAQUIN 500MG/100ML 100 ML IV ONE (16:49)
--- NOTE | 2016-08-26 16:56 | History and Physical Report ---
History of Present Illness Date of examination: 08/26/16 Date of admission: 08/26/16 Chief complaint: sob and wheezing for 2 days History of present illness: Mr. Crandall is a 76 yo Man who presented to the ER with worsening sob and wheezing for 2 days associated with cough; has a ho CHF with EF 10%;no fever; no chest pain; He was seen in the ER and was given albuterol nebulization treatmens with IV solumedrol and IV magnesium and IV lasix; CT scan of the chest showed Left pleural effusion and other findings suggestive of a pneumonitis Past History Past Medical History: atrial fib, diabetes, heart failure (EF 10%; ), hyperthyroidism, hyperlipidemia, seizures, other (ventricular tachycardia ) Past Surgical History: Other (porcine mitral valve repair; PPM) Social history: full code. denies: smoking, alcohol abuse, prescription drug abuse, IV drug use Family history: diabetes, hypertension Medications and Allergies Allergies Allergy/AdvReac Type Severity Reaction Status Date / Time No Known Allergies Allergy Verified 09/11/13 10:42 Home Medications Medication Instructions Recorded Confirmed Last Taken Type Atorvastatin [Lipitor] 40 mg PO QHS #30 tablet 08/27/14 08/19/16 Unknown Rx Carvedilol [Coreg] 6.25 mg PO BID #60 tablet 08/27/14 08/19/16 Unknown Rx Clopidogrel [Plavix] 75 mg PO QDAY #30 tablet 08/27/14 08/19/16 Unknown Rx Lisinopril [Zestril TAB] 10 mg PO QDAY 02/02/15 08/19/16 Unknown History levETIRAcetam [Keppra TAB] 500 mg PO BID 08/19/16 08/19/16 Unknown History Furosemide [Lasix] 20 mg PO QDAY #30 tablet 08/22/16 Unknown Rx Active Meds: Active Medications Levofloxacin/Dextrose (Levaquin 500mg/100ml) 100 mls @ 100 mls/hr IV ONCE ONE Stop: 08/26/16 17:48 Review of Systems All systems: negative Constitutional: no weight loss, no weight gain, no fever, no anorexia, no fatigue, no weakness Ears, nose, mouth and throat: no ear pain, no ear discharge, no tinnitis, no decreased hearing Cardiovascular: no chest pain, no orthopnea, no palpitations Respiratory: cough, cough with sputum, other (as in HPC) Genitourinary Male: no hematuria, no urinary frequency, no urinary hesitancy, no nocturia Rectal: no pain, no incontinence, no bleeding Musculoskeletal: no neck stiffness, no neck pain, no shooting arm pain, no arm numbness/tingling Integumentary: no rash, no pruritis, no redness, no sores Neurological: no head injury, no transient paralysis, no paralysis, no weakness Psychiatric: no anxiety, no memory loss, no change in sleep habits, no sleep disturbances Endocrine: no cold intolerance, no heat intolerance, no polyphagia, no excessive thirst Hematologic/Lymphatic: no easy bruising, no easy bleeding Allergic/Immunologic: no urticaria, no allergic rhinitis Exam - Constitutional Vitals: Temp Pulse Resp BP Pulse Ox 99.8 F H 92 H 30 H 152/86 94 08/26/16 13:15 08/26/16 16:34 08/26/16 16:34 08/26/16 16:34 08/26/16 16:34 General appearance: Present: no acute distress (on nc oxygen ), cachectic, other (PPM over the Lt upper chest wall ) - EENT Eyes: Present: PERRL, EOM intact. Absent: scleral icterus, conjunctival injection ENT: hearing intact, clear oral mucosa, no oropharyngeal erythema, no poor dentition - Neck Neck: Present: supple, normal ROM. Absent: enlarged thyroid, masses or JVD - Respiratory Respiratory effort: normal Respiratory: bilateral: diminished (more so on the LT), rales (coarse generally ), wheezing (mild expiratory) - Cardiovascular Rhythm: regular (tachycardia) Heart Sounds: Present: S1 & S2. Absent: gallop - Extremities Extremities: no ischemia, pulses intact, pulses symmetrical, No edema Peripheral Pulses: within normal limits - Abdominal General gastrointestinal: Present: soft, non-tender, non-distended, normal bowel sounds Male genitourinary: Present: deferred - Rectal Rectal Exam: deferred - Integumentary Integumentary: Present: clear - Musculoskeletal Musculoskeletal: strength equal bilaterally - Psychiatric Psychiatric: appropriate mood/affect, intact judgment & insight, cooperative - Neurologic Neurologic: CNII-XII intact, moves all extremities Results - Labs CBC & Chem 7: 08/26/16 13:50 08/26/16 13:50 Labs: Abnormal lab results 08/26/16 08/26/16 08/26/16 Range/Units 13:50 13:50 13:50 Lymph % (Auto) 5.1 L (13.4-35.0) % [place] % (Auto) 7.9 H (0.0-7.3) % Lymph # 0.6 L (1.2-5.4) K/mm3 [place] # 0.9 H (0.0-0.8) K/mm3 Seg Neutrophils % 85.9 H (40.0-70.0) % Seg Neutrophils # 9.5 H (1.8-7.7) K/mm3 D-Dimer 1443.53 H (0-234) ng/mlDDU Sodium 135 L (137-145) mmol/L Carbon Dioxide 21 L (22-30) mmol/L Glucose 212 H (75-100) mg/dL Calcium 8.2 L (8.4-10.2) mg/dL NT-Pro-B Natriuret Pep (0-900) pg/mL 08/26/16 Range/Units 13:50 Lymph % (Auto) (13.4-35.0) % [place] % (Auto) (0.0-7.3) % Lymph # (1.2-5.4) K/mm3 [place] # (0.0-0.8) K/mm3 Seg Neutrophils % (40.0-70.0) % Seg Neutrophils # (1.8-7.7) K/mm3 D-Dimer (0-234) ng/mlDDU Sodium (137-145) mmol/L Carbon Dioxide (22-30) mmol/L Glucose (75-100) mg/dL Calcium (8.4-10.2) mg/dL NT-Pro-B Natriuret Pep 3928 H (0-900) pg/mL - Imaging and Cardiology Chest x-ray: report reviewed (CTA chest - no evidence of PE; Moderate RT pleural effusion. Bilateral groundglass opacities RT and left lung related to possible pneumonitis. ) Assessment and Plan 1. Acute exacerbation of acute on chronic systolic heart failure with moderate RT pleural effusion- will admit as an inpatient as more than 2 MN are required for treatment; telemetry; IV lasix; consult cardiology; input/ output charting; restart coreg and lisinpril as per home meds 2. Acute pneumonitis / bronchitis - cotn IV solumedrol as started in the ER; albuterol nebulization treatments; IV levaquin; f/u blood c/s 3. DM 2- monitor accucheck; sliding scale insulin; consistent carb diet 4. Benign HTN - restart home meds 5. Dyslipidemia- restart statin as per home meds 6. P.Atrial - not a candidate for anticoagulation due to h/o intracranial bleed 7. Seizure- stable; restart keppra 8. DVT prophylaxis-heparin
[2016-08-26] MEDS ORDERED: PROVENTIL IH PRN (21:39)
[2016-08-26] MEDS ORDERED: LEVETIRACETAM 500 MG PO SCH (22:00)
[2016-08-26] MEDS: LASIX IV SCH (22:41)
[2016-08-26] MEDS: COREG PO SCH (22:43)
[2016-08-26] MEDS: KEPPRA PO SCH (22:43)
[2016-08-27] MEDS: LASIX IV SCH (05:28)
[2016-08-27 08:13] LABS: Anion Gap 17 mmol/L; BUN/Creatinine Ratio 26.25; Blood Urea Nitrogen 21 mg/dL (9-20); Calcium 8.2 mg/dL (8.4-10.2); Carbon Dioxide 26 mmol/L (22-30); Chloride 97.9 mmol/L (98-107); Glucose 265 mg/dL (75-100); Potassium 3.5 mmol/L (3.6-5.0); Sodium 137 mmol/L (137-145)
[2016-08-27] MEDS: PLAVIX PO SCH (09:06)
[2016-08-27] MEDS: COREG PO SCH ×2 (09:06→21:16)
[2016-08-27] MEDS: KEPPRA PO SCH ×2 (09:06→21:16)
[2016-08-27] MEDS: LEVAQUIN 500MG/100ML 100 ML IV SCH (09:07)
--- NOTE | 2016-08-27 11:57 | Consultation ---
Addendum entered and electronically signed by MARCO MEIER MD 12:38: There are no findings of CHF on exam Change lasix to po 40 mg daily Continue treatment for pneumonitis Original Note: History of Present Illness Consult date: 08/27/16 Consult reason: congestive heart failure History of present illness: This is a 77yr old man has an extensive cardiac history. He has a severe dilated nonischemic cardiomyopathy, mitral valve disease status post bioprosthetic mitral valve replacement, indwelling cardiac defibrillator. He has chronic atrial fibrillation. He has had a difficult history with anticoagulation. While on therapeutic doses of Coumadin, he suffered an intracranial hemorrhage. After the Coumadin was stopped, he developed an embolic CVA. Currently he was maintained on baby aspirin and plavix. Despite his multiple embolic and hemorrhagic strokes, he has not suffered any significant neurological motor deficits. He presents to this hospital with complaint of feeling fatigued. Son at bedside reports the patient was discharged from this hospital 3 days ago following treatment for CHF. His ECG shows a ventricular paced rhythm. Patient denies shortness of breath and chest pain. No lower extremity edema noted. Chest CTA reports no evidence a moderate pleural effusion and probable pneumonitis. No evidence of pulmonary embolus. Admission requested. Cardiology consultation requested for CHF. Past History Past Medical History: atrial fib, diabetes, heart failure (EF 10%; ), hyperthyroidism, hyperlipidemia, seizures, other (ventricular tachycardia ) Past Surgical History: Other (porcine mitral valve repair; PPM) Social history: full code. denies: smoking, alcohol abuse, prescription drug abuse, IV drug use Family history: diabetes, hypertension Medications and Allergies Allergies Allergy/AdvReac Type Severity Reaction Status Date / Time No Known Allergies Allergy Verified 09/11/13 10:42 Home Medications Medication Instructions Recorded Confirmed Last Taken Type Atorvastatin [Lipitor] 40 mg PO QHS #30 tablet 08/27/14 08/26/16 Unknown Rx Carvedilol [Coreg] 6.25 mg PO BID #60 tablet 08/27/14 08/26/16 Unknown Rx Clopidogrel [Plavix] 75 mg PO QDAY #30 tablet 08/27/14 08/26/16 Unknown Rx Lisinopril [Zestril TAB] 10 mg PO QDAY 02/02/15 08/26/16 Unknown History levETIRAcetam [Keppra TAB] 500 mg PO BID 08/19/16 08/26/16 Unknown History Furosemide [Lasix] 20 mg PO QDAY #30 tablet 08/22/16 08/26/16 Unknown Rx Active Meds: Active Medications Albuterol (Proventil) 2.5 mg IH Q4HRT PRN PRN Reason: Shortness Of Breath Atorvastatin Calcium (Lipitor) 40 mg PO QHS [facility] Last Admin: 08/26/16 22:43 Dose: 40 mg Carvedilol (Coreg) 6.25 mg PO BID [facility] Last Admin: 08/27/16 09:06 Dose: 6.25 mg Clopidogrel Bisulfate (Plavix) 75 mg PO QDAY [facility] Last Admin: 08/27/16 09:06 Dose: 75 mg Furosemide (Lasix) 40 mg IV BID@0600,1800 [facility] Last Admin: 08/27/16 05:28 Dose: 40 mg Levofloxacin/Dextrose (Levaquin 500mg/100ml) 100 mls @ 100 mls/hr IV Q24HR [facility] PRN Reason: Protocol Last Admin: 08/27/16 09:07 Dose: 100 mls/hr Levetiracetam (Keppra) 500 mg PO BID [facility] Last Admin: 08/27/16 09:06 Dose: 500 mg Methylprednisolone Sodium Succinate (Solu-Medrol) 80 mg IV Q8HR [facility] Last Admin: 08/27/16 05:28 Dose: 80 mg Physical Examination Vital Signs Temp Pulse Resp BP Pulse Ox 99.8 F H 110 H 36 H 190/120 97 08/26/16 13:15 08/26/16 13:15 08/26/16 13:15 08/26/16 13:15 08/26/16 13:15 General appearance: no acute distress HEENT: Positive: PERRL Neck: Positive: trachea midline Cardiac: Positive: Other (v paced) Lungs: Positive: Decreased Breath Sounds Neuro: Positive: Grossly Intact Extremities: Absent: edema Results 08/26/16 13:50 08/27/16 07:03 Comprehensive Metabolic Panel 08/27/16 Range/Units 07:03 Sodium 137 (137-145) mmol/L Potassium 3.5 L (3.6-5.0) mmol/L Chloride 97.9 L (98-107) mmol/L Carbon Dioxide 26 (22-30) mmol/L BUN 21 H (9-20) mg/dL Creatinine 0.8 (0.8-1.5) mg/dL Glucose 265 H (75-100) mg/dL Calcium 8.2 L (8.4-10.2) mg/dL EKG interpretations - Telemetry EKG Rhythm: Paced Assessment and Plan Pneumonitis Acute on chronic systolic heart failure EF 10-15% Nonischemic Cardiomyopathy Presence of AICD Hx of Mitral valve replacement normal functioning bioprosthetic MVR on echo 2013 Hx of CVA -on plavix and low dose aspirin as an outpatient Chronic atrial fibrillation considered not a candidate for anticoagulation d/t hx of intracranial hemorrhage
--- NOTE | 2016-08-27 20:42 | Progress Note ---
Hospitalist Physical - Constitutional Vitals: Temp Pulse Resp BP Pulse Ox 97.7 F 73 20 113/58 95 08/27/16 20:04 08/27/16 20:04 08/27/16 20:04 08/27/16 20:04 08/27/16 20:04 General appearance: Present: no acute distress Results - Labs CBC & Chem 7: 08/26/16 13:50 08/27/16 07:03 Labs: Laboratory Last Values WBC 11.0 K/mm3 (4.5-11.0) 08/26/16 13:50 RBC 4.28 M/mm3 (3.65-5.03) 08/26/16 13:50 Hgb 12.7 gm/dl (11.8-15.2) 08/26/16 13:50 Hct 38.1 % (35.5-45.6) 08/26/16 13:50 MCV 89 fl (84-94) 08/26/16 13:50 MCH 30 pg (28-32) 08/26/16 13:50 MCHC 33 % (32-34) 08/26/16 13:50 RDW 13.9 % (13.2-15.2) 08/26/16 13:50 Plt Count 209 K/mm3 (140-440) 08/26/16 13:50 Lymph % (Auto) 5.1 % (13.4-35.0) L 08/26/16 13:50 [place] % (Auto) 7.9 % (0.0-7.3) H 08/26/16 13:50 Eos % (Auto) 0.7 % (0.0-4.3) 08/26/16 13:50 Baso % (Auto) 0.4 % (0.0-1.8) 08/26/16 13:50 Lymph # 0.6 K/mm3 (1.2-5.4) L 08/26/16 13:50 [place] # 0.9 K/mm3 (0.0-0.8) H 08/26/16 13:50 Eos # 0.1 K/mm3 (0.0-0.4) 08/26/16 13:50 Baso # 0.0 K/mm3 (0.0-0.1) 08/26/16 13:50 Seg Neutrophils % 85.9 % (40.0-70.0) H 08/26/16 13:50 Seg Neutrophils # 9.5 K/mm3 (1.8-7.7) H 08/26/16 13:50 PT 14.3 Sec. (12.2-14.9) 08/26/16 15:55 INR 1.12 (0.87-1.13) 08/26/16 15:55 APTT 34.3 Sec. (24.2-36.6) 08/26/16 15:55 D-Dimer 1443.53 ng/mlDDU (0-234) H 08/26/16 13:50 POC ABG pH 7.363 (7.35-7.45) 08/26/16 15:08 POC ABG pCO2 40.7 (35-45) 08/26/16 15:08 POC ABG pO2 92 (80-105) 08/26/16 15:08 POC ABG HCO3 23.2 08/26/16 15:08 POC ABG Total CO2 24 08/26/16 15:08 POC ABG O2 Sat 97 08/26/16 15:08 POC ABG Base Excess -2 08/26/16 15:08 FiO2 32 % 08/26/16 15:08 Sodium 137 mmol/L (137-145) 08/27/16 07:03 Potassium 3.5 mmol/L (3.6-5.0) L 08/27/16 07:03 Chloride 97.9 mmol/L (98-107) L 08/27/16 07:03 Carbon Dioxide 26 mmol/L (22-30) 08/27/16 07:03 Anion Gap 17 mmol/L 08/27/16 07:03 BUN 21 mg/dL (9-20) H 08/27/16 07:03 Creatinine 0.8 mg/dL (0.8-1.5) 08/27/16 07:03 Estimated GFR > 60 ml/min 08/27/16 07:03 BUN/Creatinine Ratio 26.25 % 08/27/16 07:03 Glucose 265 mg/dL (75-100) H 08/27/16 07:03 Calcium 8.2 mg/dL (8.4-10.2) L 08/27/16 07:03 Troponin T < 0.010 ng/mL (0.00-0.029) 08/26/16 13:50 NT-Pro-B Natriuret Pep 3928 pg/mL (0-900) H 08/26/16 13:50
[2016-08-28] MEDS: LEVAQUIN 500MG/100ML 100 ML IV SCH (09:18)
[2016-08-28] MEDS: PLAVIX PO SCH (09:19)
[2016-08-28] MEDS: LASIX PO SCH (09:19)
[2016-08-28] MEDS: COREG PO SCH ×2 (09:19→21:35)
[2016-08-28] MEDS: KEPPRA PO SCH ×2 (09:19→21:37)
[2016-08-28] MEDS: ZESTRIL PO SCH (09:19)
--- NOTE | 2016-08-28 13:46 | Progress Note ---
Assessment and Plan - Patient Problems (1) CHF, acute on chronic Current Visit: Yes Status: Acute Qualifiers: Congestive heart failure type: unspecified congestive heart failure type Qualified Code(s): I50.9 - Heart failure, unspecified Plan to address problem: Heart failure symptoms have resolved, continue medical therapy. Subjective Date of service: 08/28/16 Interval history: The patient looks and feels well, no chest pain, no shortness of breath. He is ambulating in hallway, looks and feels well. Objective Vital Signs Temp Pulse Pulse Pulse Resp BP BP 08/28/16 11:31 97.4 F L 73 18 08/28/16 10:00 08/28/16 09:19 75 129/70 08/28/16 08:33 97.4 F L 75 20 08/28/16 04:47 97.8 F 70 20 08/28/16 01:11 97.4 F L 70 20 08/27/16 20:38 18 08/27/16 20:04 97.7 F 73 20 08/27/16 16:00 97.3 F L 72 20 128/68 BP Pulse Ox 08/28/16 11:31 154/72 97 08/28/16 10:00 96 08/28/16 09:19 08/28/16 08:33 129/70 96 08/28/16 04:47 132/63 97 08/28/16 01:11 128/57 97 08/27/16 20:38 08/27/16 20:04 113/58 95 08/27/16 16:00 92 - Physical Examination General: Appears Well, No Apparent Distress HEENT: Positive: PERRL Neck: Positive: trachea midline Cardiac: Positive: Irregularly Regular Lungs: Positive: Decreased Breath Sounds Neuro: Positive: Grossly Intact Abdomen: Positive: Soft Skin: Positive: Clear Extremities: Absent: edema
--- NOTE | 2016-08-28 15:50 | Progress Note ---
History Interval history: son at bedsite, translating; feeling better, no specific complaints Hospitalist Physical - Constitutional Vitals: Temp Pulse Resp BP Pulse Ox 97.4 F L 73 18 154/72 97 08/28/16 11:31 08/28/16 11:31 08/28/16 11:31 08/28/16 11:31 08/28/16 11:31 General appearance: Present: no acute distress Results - Labs CBC & Chem 7: 08/26/16 13:50 08/27/16 07:03 Labs: Laboratory Last Values WBC 11.0 K/mm3 (4.5-11.0) 08/26/16 13:50 RBC 4.28 M/mm3 (3.65-5.03) 08/26/16 13:50 Hgb 12.7 gm/dl (11.8-15.2) 08/26/16 13:50 Hct 38.1 % (35.5-45.6) 08/26/16 13:50 MCV 89 fl (84-94) 08/26/16 13:50 MCH 30 pg (28-32) 08/26/16 13:50 MCHC 33 % (32-34) 08/26/16 13:50 RDW 13.9 % (13.2-15.2) 08/26/16 13:50 Plt Count 209 K/mm3 (140-440) 08/26/16 13:50 Lymph % (Auto) 5.1 % (13.4-35.0) L 08/26/16 13:50 [place] % (Auto) 7.9 % (0.0-7.3) H 08/26/16 13:50 Eos % (Auto) 0.7 % (0.0-4.3) 08/26/16 13:50 Baso % (Auto) 0.4 % (0.0-1.8) 08/26/16 13:50 Lymph # 0.6 K/mm3 (1.2-5.4) L 08/26/16 13:50 [place] # 0.9 K/mm3 (0.0-0.8) H 08/26/16 13:50 Eos # 0.1 K/mm3 (0.0-0.4) 08/26/16 13:50 Baso # 0.0 K/mm3 (0.0-0.1) 08/26/16 13:50 Seg Neutrophils % 85.9 % (40.0-70.0) H 08/26/16 13:50 Seg Neutrophils # 9.5 K/mm3 (1.8-7.7) H 08/26/16 13:50 PT 14.3 Sec. (12.2-14.9) 08/26/16 15:55 INR 1.12 (0.87-1.13) 08/26/16 15:55 APTT 34.3 Sec. (24.2-36.6) 08/26/16 15:55 D-Dimer 1443.53 ng/mlDDU (0-234) H 08/26/16 13:50 POC ABG pH 7.363 (7.35-7.45) 08/26/16 15:08 POC ABG pCO2 40.7 (35-45) 08/26/16 15:08 POC ABG pO2 92 (80-105) 08/26/16 15:08 POC ABG HCO3 23.2 08/26/16 15:08 POC ABG Total CO2 24 08/26/16 15:08 POC ABG O2 Sat 97 08/26/16 15:08 POC ABG Base Excess -2 08/26/16 15:08 FiO2 32 % 08/26/16 15:08 Sodium 137 mmol/L (137-145) 08/27/16 07:03 Potassium 3.5 mmol/L (3.6-5.0) L 08/27/16 07:03 Chloride 97.9 mmol/L (98-107) L 08/27/16 07:03 Carbon Dioxide 26 mmol/L (22-30) 08/27/16 07:03 Anion Gap 17 mmol/L 08/27/16 07:03 BUN 21 mg/dL (9-20) H 08/27/16 07:03 Creatinine 0.8 mg/dL (0.8-1.5) 08/27/16 07:03 Estimated GFR > 60 ml/min 08/27/16 07:03 BUN/Creatinine Ratio 26.25 % 08/27/16 07:03 Glucose 265 mg/dL (75-100) H 08/27/16 07:03 Calcium 8.2 mg/dL (8.4-10.2) L 08/27/16 07:03 Troponin T < 0.010 ng/mL (0.00-0.029) 08/26/16 13:50 NT-Pro-B Natriuret Pep 3928 pg/mL (0-900) H 08/26/16 13:50
--- NOTE | 2016-08-29 13:30 | Progress Note ---
Assessment and Plan - Patient Problems (1) CHF, acute on chronic Current Visit: Yes Status: Acute Qualifiers: Congestive heart failure type: unspecified congestive heart failure type Qualified Code(s): I50.9 - Heart failure, unspecified Plan to address problem: Heart failure symptoms have resolved, continue medical therapy. Subjective Date of service: 08/29/16 Interval history: The patient looks and feels well, no chest pain, no shortness of breath. He is ambulating in hallway, looks and feels well. Objective Vital Signs Temp Pulse Pulse Resp BP BP Pulse Ox 08/29/16 12:28 97.3 F L 71 18 161/82 96 08/29/16 08:08 97.4 F L 70 18 154/79 08/29/16 07:29 97.3 F L 67 18 159/76 98 08/29/16 03:00 70 08/29/16 00:49 97.4 F L 69 20 134/74 95 08/28/16 21:35 73 152/72 08/28/16 20:14 94 08/28/16 20:02 97.3 F L 73 20 152/72 96 08/28/16 16:26 97.4 F L 67 18 168/74 94 - Physical Examination General: Appears Well, No Apparent Distress HEENT: Positive: PERRL Neck: Positive: trachea midline Cardiac: Positive: irregularly irregular Lungs: Positive: Decreased Breath Sounds Neuro: Positive: Grossly Intact Abdomen: Positive: Soft Skin: Positive: Clear Extremities: Absent: edema
[2016-08-29] MEDS: LEVAQUIN 500MG/100ML 100 ML IV SCH (13:42)
[2016-08-29] MEDS: KEPPRA PO SCH ×2 (13:50→23:14)
[2016-08-29] MEDS: LASIX PO SCH (13:50)
[2016-08-29] MEDS: ZESTRIL PO SCH (13:51)
[2016-08-29] MEDS: COREG PO SCH ×2 (13:51→23:13)
[2016-08-29] MEDS: PLAVIX PO SCH (13:51)
--- NOTE | 2016-08-29 19:17 | Progress Note ---
History Interval history: doing well, no complaints Hospitalist Physical - Constitutional Vitals: Temp Pulse Resp BP Pulse Ox 97.6 F 70 18 163/77 94 08/29/16 17:41 08/29/16 17:41 08/29/16 17:41 08/29/16 17:41 08/29/16 17:41 General appearance: Present: no acute distress Results - Labs CBC & Chem 7: 08/26/16 13:50 08/27/16 07:03 Labs: Laboratory Last Values WBC 11.0 K/mm3 (4.5-11.0) 08/26/16 13:50 RBC 4.28 M/mm3 (3.65-5.03) 08/26/16 13:50 Hgb 12.7 gm/dl (11.8-15.2) 08/26/16 13:50 Hct 38.1 % (35.5-45.6) 08/26/16 13:50 MCV 89 fl (84-94) 08/26/16 13:50 MCH 30 pg (28-32) 08/26/16 13:50 MCHC 33 % (32-34) 08/26/16 13:50 RDW 13.9 % (13.2-15.2) 08/26/16 13:50 Plt Count 209 K/mm3 (140-440) 08/26/16 13:50 Lymph % (Auto) 5.1 % (13.4-35.0) L 08/26/16 13:50 [place] % (Auto) 7.9 % (0.0-7.3) H 08/26/16 13:50 Eos % (Auto) 0.7 % (0.0-4.3) 08/26/16 13:50 Baso % (Auto) 0.4 % (0.0-1.8) 08/26/16 13:50 Lymph # 0.6 K/mm3 (1.2-5.4) L 08/26/16 13:50 [place] # 0.9 K/mm3 (0.0-0.8) H 08/26/16 13:50 Eos # 0.1 K/mm3 (0.0-0.4) 08/26/16 13:50 Baso # 0.0 K/mm3 (0.0-0.1) 08/26/16 13:50 Seg Neutrophils % 85.9 % (40.0-70.0) H 08/26/16 13:50 Seg Neutrophils # 9.5 K/mm3 (1.8-7.7) H 08/26/16 13:50 PT 14.3 Sec. (12.2-14.9) 08/26/16 15:55 INR 1.12 (0.87-1.13) 08/26/16 15:55 APTT 34.3 Sec. (24.2-36.6) 08/26/16 15:55 D-Dimer 1443.53 ng/mlDDU (0-234) H 08/26/16 13:50 POC ABG pH 7.363 (7.35-7.45) 08/26/16 15:08 POC ABG pCO2 40.7 (35-45) 08/26/16 15:08 POC ABG pO2 92 (80-105) 08/26/16 15:08 POC ABG HCO3 23.2 08/26/16 15:08 POC ABG Total CO2 24 08/26/16 15:08 POC ABG O2 Sat 97 08/26/16 15:08 POC ABG Base Excess -2 08/26/16 15:08 FiO2 32 % 08/26/16 15:08 Sodium 137 mmol/L (137-145) 08/27/16 07:03 Potassium 3.5 mmol/L (3.6-5.0) L 08/27/16 07:03 Chloride 97.9 mmol/L (98-107) L 08/27/16 07:03 Carbon Dioxide 26 mmol/L (22-30) 08/27/16 07:03 Anion Gap 17 mmol/L 08/27/16 07:03 BUN 21 mg/dL (9-20) H 08/27/16 07:03 Creatinine 0.8 mg/dL (0.8-1.5) 08/27/16 07:03 Estimated GFR > 60 ml/min 08/27/16 07:03 BUN/Creatinine Ratio 26.25 % 08/27/16 07:03 Glucose 265 mg/dL (75-100) H 08/27/16 07:03 Calcium 8.2 mg/dL (8.4-10.2) L 08/27/16 07:03 Troponin T < 0.010 ng/mL (0.00-0.029) 08/26/16 13:50 NT-Pro-B Natriuret Pep 3928 pg/mL (0-900) H 08/26/16 13:50
[2016-08-30 08:01] LABS: Hematocrit 36.4 % (35.5-45.6); Hemoglobin 12.2 gm/dl (11.8-15.2); Mean Corpuscular HGB Conc 34 % (32-34); Mean Corpuscular Hemoglobin 30 pg (28-32); Mean Corpuscular Volume 90 fl (84-94); Platelet Count 248 K/mm3 (140-440); Red Blood Count 4.05 M/mm3 (3.65-5.03); Red Cell Distribution Width 13.7 % (13.2-15.2); White Blood Count 8.3 K/mm3 (4.5-11.0)
[2016-08-30 08:09] LABS: Anion Gap 17 mmol/L; BUN/Creatinine Ratio 41.25; Blood Urea Nitrogen 33 mg/dL (9-20); Calcium 8.6 mg/dL (8.4-10.2); Carbon Dioxide 27 mmol/L (22-30); Chloride 97.2 mmol/L (98-107); Glucose 447 mg/dL (75-100); Potassium 4.2 mmol/L (3.6-5.0); Sodium 137 mmol/L (137-145)
[2016-08-30 08:58] LABS: Basophils % (Manual) 0 % (0.0-1.8); Blastocytes % (Manual) 0 %; Eosinophils % (Manual) 0 % (0.0-4.3)
[2016-08-30 08:59] LABS: Anisocytosis Few; Diff Status Complete
[2016-08-30] MEDS: LEVAQUIN 500MG/100ML 100 ML IV SCH (10:00)
[2016-08-30] MEDS: PLAVIX PO SCH (10:02)
[2016-08-30] MEDS: COREG PO SCH ×2 (10:07→21:54)
[2016-08-30] MEDS: KEPPRA PO SCH ×2 (10:07→21:54)
[2016-08-30] MEDS: LASIX PO SCH (10:08)
[2016-08-30] MEDS: ZESTRIL PO SCH (10:09)
--- NOTE | 2016-08-30 11:19 | Progress Note ---
Addendum entered and electronically signed by MARCE KELLEY MD 08/30/16 13:59 : Cardiac status is stable, okay for cardiac discharge. Original Note: Assessment and Plan Pneumonitis Acute on chronic systolic heart failure EF 10-15% Nonischemic Cardiomyopathy Presence of AICD Hx of Mitral valve replacement normal functioning bioprosthetic MVR on echo 2013 Hx of CVA -on plavix and low dose aspirin as an outpatient Chronic atrial fibrillation considered not a candidate for anticoagulation d/t hx of intracranial hemorrhage Stable cardiac lino. Continue medical management for nonischemic cardiomyopathy. Subjective Date of service: 08/30/16 Interval history: Patient feels better. Objective Vital Signs Temp Pulse Pulse Pulse Resp Resp BP 08/30/16 10:09 72 151/80 08/30/16 10:07 72 151/80 08/30/16 07:00 98.1 F 70 22 08/30/16 04:50 98.9 F 74 20 08/30/16 00:40 98.6 F 72 20 08/29/16 23:13 71 172/79 08/29/16 20:35 97.1 F L 74 16 08/29/16 20:00 70 70 24 20 08/29/16 17:41 97.6 F 70 18 08/29/16 13:51 78 08/29/16 12:28 97.3 F L 71 18 BP Pulse Ox 08/30/16 10:09 08/30/16 10:07 08/30/16 07:00 157/81 96 08/30/16 04:50 163/79 95 08/30/16 00:40 158/84 92 08/29/16 23:13 08/29/16 20:35 136/75 100 08/29/16 20:00 96 08/29/16 17:41 163/77 94 08/29/16 13:51 08/29/16 12:28 161/82 96 - Physical Examination General: Appears Well, No Apparent Distress HEENT: Positive: PERRL Neck: Positive: trachea midline Cardiac: Positive: irregularly irregular Lungs: Positive: Decreased Breath Sounds Neuro: Positive: Grossly Intact Extremities: Absent: edema - Labs and Meds CBC 08/30/16 Range/Units 06:44 WBC 8.3 (4.5-11.0) K/mm3 RBC 4.05 (3.65-5.03) M/mm3 Hgb 12.2 (11.8-15.2) gm/dl Hct 36.4 (35.5-45.6) % Plt Count 248 (140-440) K/mm3 Comprehensive Metabolic Panel 08/30/16 Range/Units 06:44 Sodium 137 (137-145) mmol/L Potassium 4.2 (3.6-5.0) mmol/L Chloride 97.2 L (98-107) mmol/L Carbon Dioxide 27 (22-30) mmol/L BUN 33 H (9-20) mg/dL Creatinine 0.8 (0.8-1.5) mg/dL Glucose 447 H (75-100) mg/dL Calcium 8.6 (8.4-10.2) mg/dL
--- NOTE | 2016-08-30 13:15 | Discharge Summary ---
<ANJANA KING - Last Filed: 08/30/16 14:58> Providers - Providers Date of Admission: 08/26/16 16:33 Date of discharge: 08/30/16 Attending physician: ANJANA KING CONSULTS: Cardiology Primary care physician: SERENE KELLEY Hospitalization Condition: Stable Disposition: DISCHARGED TO HOME OR SELFCARE Time spent for discharge: 35 min Core Measure Documentation - Palliative Care Palliative Care/ Comfort Measures: Not Applicable - Core Measures Any of the following diagnoses?: heart failure - Heart Failure Discharge Requirements ALESSIO/ARB for LVSD if EF <40%: Yes Beta bandar at discharge: Yes Exam - Physical Exam Narrative exam: Patient seen and examined: - Constitutional Vitals: Temp Pulse Resp BP Pulse Ox 98.1 F 72 22 151/80 96 08/30/16 07:00 08/30/16 10:09 08/30/16 07:00 08/30/16 10:09 08/30/16 07:00 General appearance: Present: no acute distress - EENT Eyes: Present: PERRL, EOM intact - Neck Neck: Present: supple, normal ROM. Absent: masses or JVD - Respiratory Respiratory effort: normal Respiratory: bilateral: diminished, negative: rhonchi, wheezing - Cardiovascular Rhythm: regular Heart Sounds: Present: S1 & S2. Absent: systolic murmur - Extremities Extremities: no ischemia Extremity abnormal: edema - Abdominal General gastrointestinal: Present: soft, non-tender, non-distended, normal bowel sounds - Integumentary Integumentary: Present: warm, dry. Absent: jaundice, rash - Psychiatric Psychiatric: cooperative - Neurologic Neurologic: CNII-XII intact, no focal deficits Plan Activity: advance as tolerated, fall precautions Diet: low cholesterol, low salt Follow up with: MARCE KELLEY MD [Primary Care Provider] - 7 Days Prescriptions: AtorvaSTATin [Lipitor] 40 mg PO QHS #30 tablet Carvedilol [Coreg] 6.25 mg PO BID #60 tablet levETIRAcetam [Keppra TAB] 500 mg PO BID #60 tablet Furosemide [Lasix TAB] 40 mg PO QDAY #30 tablet Levofloxacin [Levaquin TAB] 500 mg PO Q24HR #3 tablet Clopidogrel [Plavix] 75 mg PO QDAY #30 tablet ALBUTEROL NEB's [Proventil 0.083% NEBS] 2.5 mg IH Q4HRT PRN #1 nebu PRN Reason: Shortness Of Breath Lisinopril [Zestril TAB] 5 mg PO QDAY #30 tablet <ANUPAMA REESE - Last Filed: 08/31/16 15:54> Providers - Providers Date of Admission: 08/26/16 16:33 Attending physician: ANUPAMA REESE Primary care physician: SERENE KELLEY Exam - Constitutional Vitals: Temp Pulse Resp BP Pulse Ox 97.8 F 70 18 116/75 99 08/31/16 12:00 08/31/16 12:00 08/31/16 12:00 08/31/16 12:00 08/31/16 12:00
[2016-08-31] MEDS ORDERED: LEVAQUIN PO SCH (10:00)
--- NOTE | 2016-08-31 10:27 | Progress Note ---
Assessment and Plan Pneumonitis Acute on chronic systolic heart failure EF 10-15% Nonischemic Cardiomyopathy Presence of AICD Hx of Mitral valve replacement normal functioning bioprosthetic MVR on echo 2014 Hx of CVA -on plavix and low dose aspirin as an outpatient Chronic atrial fibrillation considered not a candidate for anticoagulation d/t hx of intracranial hemorrhage Continue medical management for nonischemic cardiomyopathy. Stable, cardiac lino, for discharge today. Subjective Date of service: 08/31/16 Interval history: Patient denies chest pain and shortness of breath. Objective Vital Signs Temp Pulse Pulse Resp Resp BP Pulse Ox 08/31/16 09:20 95 08/31/16 08:00 97.7 F 70 20 140/89 95 08/31/16 04:40 97.6 F 68 18 151/76 98 08/31/16 00:35 97.6 F 68 18 164/82 96 08/30/16 20:48 97 08/30/16 20:30 97.4 F L 70 20 173/84 95 08/30/16 20:09 20 08/30/16 20:05 72 08/30/16 20:04 20 08/30/16 16:00 97.3 F L 80 20 154/79 96 - Physical Examination General: Appears Well, No Apparent Distress HEENT: Positive: PERRL Neck: Positive: trachea midline Cardiac: Positive: Other (v paced) Lungs: Positive: Decreased Breath Sounds Neuro: Positive: Grossly Intact Extremities: Absent: edema
[2016-08-31] MEDS: KEPPRA PO SCH (11:08)
[2016-08-31] MEDS: COREG PO SCH (11:08)
[2016-08-31] MEDS: LASIX PO SCH (11:08)
[2016-08-31] MEDS: PLAVIX PO SCH (11:09)
[2016-08-31] MEDS: ZESTRIL PO SCH (11:09)
[2016-08-31 14:00] VITALS: BP 116/75
--- NOTE | 2016-08-31 14:27 | XRay Report ---
NECK SOFT TISSUE RADIOGRAPHS INDICATION: Neck pain. COMPARISON: None similar. FINDINGS: AP and lateral radiographs demonstrate normal neck soft tissues, including patent airway and normal prevertebral soft tissues. Demineralized bones with mild cervical kyphosis apex about C4-C5. Degenerative spurring noted from C3-C6, most involving C5 with moderate to severe C5-C6 disc narrowing as well. Largely edentulous jaw except for few anterior maxillary teeth remaining. Mild left carotid calcifications. Sternotomy wires, aortic knob calcifications and a left AICD with tripolar leads partially imaged. CONCLUSION: Normal neck soft tissue radiographs with cervical spondylosis and few other incidental findings, as above. Thank you for the opportunity to participate in this patient's care.
--- NOTE | 2016-08-31 15:53 | Event Note ---
Date: 08/31/16 Patient was set for discharge yesterday but discharge was hold because of his neck pain and weakness. He had soft tissue neck x-ray which showed cervical spondylosis with cervical vertebra degenerative changes. Patient will be discharge home today. For detail discharge summary please see the dictation on 08/30/[address] Newman. Maintenance And Engineering Manager is to clear the patient for discharge. Vitals: Reviewed GENERAL: Elderly male sitting on bed appeared to be in no discomfort. HEENT: Normocephalic. Atraumatic. No conjunctival congestion or icterus. Patient has moist mucous membranes. NECK: Supple. Trachea midline. CHEST/LUNGS: Clear to auscultated bilaterally, breathing nonlabored. No wheezes crackles or rhonchi. HEART/CARDIOVASCULAR: Regular in rate and rhythm. S1 and S2 positive. ABDOMEN: Abdomen is soft, nontender. Patient has normal bowel sounds. SKIN: There is no rash. Warm and dry. NEURO: No focal motor deficit. Follows command. MUSCULOSKELETAL: No joint effusion or tenderness. EXTRIMITY: No edema, no cyanosis or clubbing. PSYCH: Cooperative.
--- NOTE | 2016-09-03 08:37 | Query- Pneumonia Documented ---
Jameson Brown Date:_09/03/16 Manifest/Order Organizer Print Orders/CDS:Landon/Silvestre Yeh Phone#:_[phone] Exercise your independent professional judgment when responding to query. Questions asked do not imply a particular answer is desired or expected. We greatly appreciate your clarification on this issue. Clinical Documentation States: 76 Y/O Male admitted on 08/26/16 with Hx. of CHF with EF 10%, A-fib, DM presented with shortness of breath and wheezing for 2 days. Given albuterol, IV solumedrol, IV Magnesium, IV lasix in Emergency Department Clinical Findings Show: Antibiotics: IV Levofloxacin Chest Imaging: CT chest shows left pleural effusion and other findings suggestive of pneumonitis Please further specify known or suspected Etiology of Pneumonia: [ ] Aspiration Pneumonia [ ] Gram Negative Pneumonia [ ] Gram Positive Pneumonia [ ] Pseudomonas Pneumonia [ ] MRSA - related Pneumonia [ ] Viral Pneumonia [ ] Candidal Pneumonia [ ] Other: [x ] Unable to determine Present on Admission: [x ] Yes (Y) [ ] Clinically undeterminable (W) [ ] No (N) Please also document response in your Progress Notes and/or Discharge Summary and indicate if the condition was present on admission. MTDD
== END 2016-08-31 17:13 | disposition home or self-care (01) | DRG 291 ==
LOC: ED 13:09 → 4A 16:33
PROVIDERS: ADMIT Hospitalist; ATTEND Internal Medicine
PROC: 4A033R1 Measurement of Arterial Saturation, Peripheral, Percutaneous Approach (ICD-10-PCS; principal; 2016-08-26)
DX: I50.23 Acute on chronic systolic (congestive) heart failure (principal); J18.9 Pneumonia, unspecified organism; I42.8 Other cardiomyopathies; E11.8 Type 2 diabetes mellitus with unspecified complications; I10 Essential (primary) hypertension; R56.9 Unspecified convulsions; E78.5 Hyperlipidemia, unspecified; I25.10 Atherosclerotic heart disease of native coronary artery without angina pectoris; E05.90 Thyrotoxicosis, unspecified without thyrotoxic crisis or storm; I48.2 Chronic atrial fibrillation; M47.892 Other spondylosis, cervical region; J40 Bronchitis, not specified as acute or chronic; Z86.73 Personal history of transient ischemic attack (TIA), and cerebral infarction without residual deficits; Z95.0 Presence of cardiac pacemaker; Z82.49 Family history of ischemic heart disease and other diseases of the circulatory system; Z83.3 Family history of diabetes mellitus
CPT/HCPCS: 36415; 70360; 71020; 71275; 80048; 82803; 83880; 84484; 85007; 85025; 85379; 85610; 85730; 87040; 87400; 93005; 93010; 94640; 94644; 94760; 96365; 96375; A9270-GY; J1940; J1956; J2930; Q9967

== ENCOUNTER 2017-08-31 17:34 | Inpatient (IN) | payer MEDICARE ==
[2017-08-31 18:22] LABS: Basophils # (Auto) 0.1 K/mm3 (0.0-0.1); Basophils % (Auto) 0.8 % (0.0-1.8); Eosinophils # (Auto) 0.1 K/mm3 (0.0-0.4); Eosinophils % (Auto) 1.7 % (0.0-4.3); Hemoglobin 13.8 gm/dl (11.8-15.2); Lymphocytes # (Auto) 0.7 K/mm3 (1.2-5.4); Lymphocytes % (Auto) 9.3 % (13.4-35.0); Mean Corpuscular HGB Conc 33 % (32-34); Mean Corpuscular Hemoglobin 29 pg (28-32); Mean Corpuscular Volume 89 fl (84-94); Monocytes # (Auto) 0.7 K/mm3 (0.0-0.8); Monocytes % (Auto) 9.2 % (0.0-7.3); Platelet Count 181 K/mm3 (140-440); Red Cell Distribution Width 15.4 % (13.2-15.2)
[2017-08-31 18:29] LABS: INR 1.05 (0.87-1.13)
[2017-08-31 18:30] LABS: Partial Thromboplastin Time 37.7 Sec. (24.2-36.6)
[2017-08-31 18:37] LABS: BUN/Creatinine Ratio 24; Blood Urea Nitrogen 22 mg/dL (9-20); Calcium 8.6 mg/dL (8.4-10.2); Hemolysis Index 17
--- NOTE | 2017-08-31 20:17 | XRay Report ---
FINAL REPORT EXAM: XR CHEST ROUTINE 2V HISTORY: Shortness of breath TECHNIQUE: Chest two views PRIORS: None. FINDINGS: Cardiac silhouette is enlarged. There is a CT/pacemaker present. There is cardiac valve prosthesis. Sternotomy wires are noted. There is a moderate right pleural effusion and smaller left pleural effusion. There is some pulmonary vascular congestion present. IMPRESSION: Moderate right pleural effusion smaller left effusion Pulmonary vascular congestion. Findings are suggestive of CHF Mild cardiomegaly, cardiac valve prosthesis and pacemaker AICD present.
[2017-09-01] MEDS ORDERED: LASIX IV ONE (01:56)
--- NOTE | 2017-09-01 02:02 | Emergency Department Report ---
ED Shortness of Breath HPI - General Chief Complaint: Dyspnea/Respdistress Stated Complaint: SOB Time Seen by Provider: 09/01/17 01:39 Source: family, EMS Mode of arrival: Stretcher Limitations: Language Barrier - History of Present Illness Initial Comments: 77-year-old male with a past medical history CHF, CVA, diabetes, CAD, A. fib, high cholesterol, seizures, TIA, mitral valve repair, and defibrillator placement presents to the hospital or shortness breath for 2-3 days. Patient complains of intermittent chest pain at the pacemaker sternal area. No fever reported. - Related Data Home Medications Medication Instructions Recorded Confirmed Last Taken Pantoprazole [Protonix TAB] 40 mg PO QDAY 03/01/17 03/01/17 02/28/17 Potassium Chloride 20 meq PO DAILY 03/01/17 03/01/17 02/28/17 Previous Rx's Medication Instructions Recorded Last Taken Type Carvedilol [Coreg] 6.25 mg PO BID #60 tablet 08/30/16 02/28/17 Rx Clopidogrel [Plavix] 75 mg PO QDAY #30 tablet 08/30/16 02/28/17 Rx Furosemide [Lasix TAB] 40 mg PO QDAY #30 tablet 08/30/16 02/28/17 Rx levETIRAcetam [Keppra TAB] 750 mg PO BID #60 tablet 03/02/17 Unknown Rx AtorvaSTATin [Lipitor] 40 mg PO QHS #30 tab 03/14/17 Unknown Rx Allergies Allergy/AdvReac Type Severity Reaction Status Date / Time No Known Allergies Allergy Verified 09/11/13 10:42 ED Review of Systems ROS: Stated complaint: SOB Other details as noted in HPI Comment: All other systems reviewed and negative (see hpi) ED Past Medical Hx - Past Medical History Previous Medical History?: Yes Hx Hypertension: No Hx CVA: Yes (2014, no residual deficits) Hx Heart Attack/AMI: Yes (2011) Hx Congestive Heart Failure: Yes (ejection fraction 10-15%) Hx Diabetes: Yes Hx Deep Vein Thrombosis: No Hx Sickle Cell Disease: No Hx Seizures: Yes Hx HIV: No Additional medical history: CAD, high cholesterol, A-fib, TIA - Surgical History Past Surgical History?: Yes Hx Coronary Stent: No Hx Open Heart Surgery: Yes Hx Pacemaker: No Hx Internal Defibrillator: Yes Hx Cholecystectomy: No Hx Appendectomy: No Hx Breast Surgery: No Additional Surgical History: porcine mitral valve repair, pacemaker - Social History Smoking Status: Never Smoker Substance Use Type: None - Medications Home Medications: Home Medications Medication Instructions Recorded Confirmed Last Taken Type Carvedilol [Coreg] 6.25 mg PO BID #60 tablet 08/30/16 03/01/17 02/28/17 Rx Clopidogrel [Plavix] 75 mg PO QDAY #30 tablet 08/30/16 03/01/17 02/28/17 Rx Furosemide [Lasix TAB] 40 mg PO QDAY #30 tablet 08/30/16 03/01/17 02/28/17 Rx Pantoprazole [Protonix TAB] 40 mg PO QDAY 03/01/17 03/01/17 02/28/17 History Potassium Chloride 20 meq PO DAILY 03/01/17 03/01/17 02/28/17 History levETIRAcetam [Keppra TAB] 750 mg PO BID #60 tablet 03/02/17 Unknown Rx AtorvaSTATin [Lipitor] 40 mg PO QHS #30 tab 03/14/17 Unknown Rx ED Physical Exam - General Limitations: Language Barrier - Other Other exam information: General: No limitations, patient is alert in no acute distress Head exam: Atraumatic, normocephalic Eyes exam: Normal appearance ENT: Moist mucous membrane, normal oropharynx Neck exam: Normal inspection, full range of motion, no meningismus nontender Respiratory exam: Sternotomy scar, left chest wall pacemaker, diminished breath sounds right base, crackles on the left Cardiovascular: Normal rate and rhythm, normal heart sounds Abdomen: Soft, nondistended, and nontender, with normal bowel sounds, no rebound, or guarding Extremity: Full range of motion normal inspection no deformity, mild lower extremity pitting edema. Back: Normal Inspection, full range of motion, no tenderness Neurologic: Alert, oriented x3, cranial nerves intact, no motor or sensory deficit Psychiatric: normal affect, normal mood Skin: Warm, dry, intact ED Course Vital Signs 08/31/17 08/31/17 09/01/17 17:47 21:20 01:10 Temperature 97.9 F Pulse Rate 96 H 72 77 Respiratory 16 21 Rate Blood Pressure 144/90 127/70 O2 Sat by Pulse 94 97 95 Oximetry 09/01/17 09/01/17 09/01/17 01:20 01:31 01:37 Temperature 97.4 F L Pulse Rate 70 73 Respiratory 18 19 14 Rate Blood Pressure 146/89 146/89 O2 Sat by Pulse 98 99 99 Oximetry - Reevaluation(s) Reevaluation #1: 09/01/17 02:04 Anastasia initiated ED Medical Decision Making - Lab Data Result diagrams: 08/31/17 18:00 08/31/17 18:00 Lab Results 08/31/17 08/31/17 08/31/17 Range/Units 18:00 18:00 18:00 WBC 7.4 (4.5-11.0) K/mm3 RBC 4.70 (3.65-5.03) M/mm3 Hgb 13.8 (11.8-15.2) gm/dl Hct 42.0 (35.5-45.6) % MCV 89 (84-94) fl MCH 29 (28-32) pg MCHC 33 (32-34) % RDW 15.4 H (13.2-15.2) % Plt Count 181 (140-440) K/mm3 Lymph % (Auto) 9.3 L (13.4-35.0) % [place] % (Auto) 9.2 H (0.0-7.3) % Eos % (Auto) 1.7 (0.0-4.3) % Baso % (Auto) 0.8 (0.0-1.8) % Lymph # 0.7 L (1.2-5.4) K/mm3 [place] # 0.7 (0.0-0.8) K/mm3 Eos # 0.1 (0.0-0.4) K/mm3 Baso # 0.1 (0.0-0.1) K/mm3 Seg Neutrophils % 79.0 H (40.0-70.0) % Seg Neutrophils # 5.9 (1.8-7.7) K/mm3 PT 14.2 (12.2-14.9) Sec. INR 1.05 (0.87-1.13) APTT 37.7 H (24.2-36.6) Sec. Sodium 136 L (137-145) mmol/L Potassium 4.1 (3.6-5.0) mmol/L Chloride 95.8 L (98-107) mmol/L Carbon Dioxide 23 (22-30) mmol/L Anion Gap 21 mmol/L BUN 22 H (9-20) mg/dL Creatinine 0.9 (0.8-1.5) mg/dL Estimated GFR > 60 ml/min BUN/Creatinine Ratio 24 % Glucose 187 H (75-100) mg/dL Calcium 8.6 (8.4-10.2) mg/dL Troponin T < 0.010 (0.00-0.029) ng/mL NT-Pro-B Natriuret Pep 1843 H (0-900) pg/mL - EKG Data -: EKG Interpreted by Me (ventricular paced, (ems ekg)) EKG shows normal: axis (151), QRS complexes (118), ST-T waves (no stemi) - Medical Decision Making Shortness of breath Positive CHF with associated effusion Lasix initiated Hospital informant for admission. - Differential Diagnosis CHF, pneumonia, bronchitis, asthma, [place], valve failure Critical Care Time: No Critical care attestation.: If time is entered above; I have spent that time in minutes in the direct care of this critically ill patient, excluding procedure time. ED Disposition Clinical Impression: History of mitral valve replacement with porcine valve, Acute exacerbation of CHF (congestive heart failure), Pacemaker, HTN (hypertension), Pleural effusion Disposition: 09 OP ADMIT IP TO THIS HOSP Is pt being admited?: Yes Condition: Stable Time of Disposition: 02:24 (Dr brooks/hosp)
--- NOTE | 2017-09-01 05:24 | History and Physical Report ---
History of Present Illness Date of examination: 09/01/17 History of present illness: This is a 76-year-old man with history of hypertension, A. fib hyperlipidemia, coronary artery disease, seizure, diabetes and heart failure was brought to the emergency room for shortness of breath. Also complaining of chest pain over the left chest, dull, intermittent in nature, unable to say how long it last for , intensity 5/10, no radiation. Admits to dyspnea on exertion, no PND, orthopnea. Respiratory difficult to obtain other review of systems, Swedish speaking Past medical history hypertension, A. fib hyperlipidemia, coronary artery disease, seizure, diabetes and heart failure PAST SURGICAL HISTORY: Pacemaker, hernia repair,CABG, mitral valve replacement SOCIAL HISTORY: No alcohol, tobacco, drugs FAMILY HISTORY: Hypertension Medications and Allergies Allergies Allergy/AdvReac Type Severity Reaction Status Date / Time No Known Allergies Allergy Verified 09/11/13 10:42 Home Medications Medication Instructions Recorded Confirmed Last Taken Type Carvedilol [Coreg] 6.25 mg PO BID #60 tablet 08/30/16 03/01/17 02/28/17 Rx Clopidogrel [Plavix] 75 mg PO QDAY #30 tablet 08/30/16 03/01/17 02/28/17 Rx Furosemide [Lasix TAB] 40 mg PO QDAY #30 tablet 08/30/16 03/01/17 02/28/17 Rx Pantoprazole [Protonix TAB] 40 mg PO QDAY 03/01/17 03/01/17 02/28/17 History Potassium Chloride 20 meq PO DAILY 03/01/17 03/01/17 02/28/17 History levETIRAcetam [Keppra TAB] 750 mg PO BID #60 tablet 03/02/17 Unknown Rx AtorvaSTATin [Lipitor] 40 mg PO QHS #30 tab 03/14/17 Unknown Rx Exam - Physical Exam Narrative exam: Gen. appearance: Patient lying in bed in no acute distress HEENT: Normocephalic/atraumatic, pupils equal round reactive to light, extra occular movement intact, no scleral icterus, no JVD or thyromegaly or nodule, neck is supple, mucous membrane moist, no erythema or exudate Heart: S1-S2, regular rate and rhythm Lungs: Crackles bilateral breathing comfortable Abdomen: Positive bowel sounds, nontender, nondistended, no organomegaly Extremities: No edema, cyanosis, clubbing Neuro:: Oriented 3 , cranial nerves II-12 intact, speech, motor intact Skin: No rash, nodules, warm dry - Constitutional Vitals: Temp Pulse Resp BP Pulse Ox 97.4 F L 89 26 H 139/70 97 09/01/17 01:37 09/01/17 03:31 09/01/17 03:31 09/01/17 03:31 09/01/17 03:31 Results - Labs CBC & Chem 7: 08/31/17 18:00 08/31/17 18:00 Labs: Abnormal lab results 08/31/17 08/31/17 08/31/17 Range/Units 18:00 18:00 18:00 RDW 15.4 H (13.2-15.2) % Lymph % (Auto) 9.3 L (13.4-35.0) % [facility] % (Auto) 9.2 H (0.0-7.3) % Lymph # 0.7 L (1.2-5.4) K/mm3 Seg Neutrophils % 79.0 H (40.0-70.0) % APTT 37.7 H (24.2-36.6) Sec. Sodium 136 L (137-145) mmol/L Chloride 95.8 L (98-107) mmol/L BUN 22 H (9-20) mg/dL Glucose 187 H (75-100) mg/dL NT-Pro-B Natriuret Pep 1843 H (0-900) pg/mL - Imaging and Cardiology EKG: image reviewed Chest x-ray: image reviewed Assessment and Plan Assessment CHF exacerbation, thought dysfunction A. fib Hyperlipidemia Hypertension Diabetes seizure History of CVA Plan Admit to medicine Diurese with IV Lasix Monitor I's and O's, daily weights Start beta bandar, ALESSIO inhibitor, plavix Check cardiac enzymes, Echo, consult cardiology Check fingersticks and initiate insulin sliding scale Continue appropriate outpatient medications DVT prophylaxis
[2017-09-01] MEDS ORDERED: D50W (25GM) Syringe IV PRN ×2 (05:27→05:43)
[2017-09-01] MEDS ORDERED: DULCOLAX PR PRN (05:27)
[2017-09-01] MEDS ORDERED: TYLENOL PO PRN (05:27)
[2017-09-01] MEDS ORDERED: MILK OF MAGNESIA PO PRN (05:27)
[2017-09-01] MEDS ORDERED: ZOFRAN IV PRN (05:27)
[2017-09-01 06:27] LABS: Creatine Kinase MB 3.5 ng/mL (0.0-4.0)
[2017-09-01] MEDS ORDERED: LASIX ONE (06:35)
[2017-09-01] MEDS: LASIX IV SCH ×2 (06:37→17:52)
[2017-09-01] MEDS: NOVOLOG SUB-Q SCH ×4 (07:30→21:52)
[2017-09-01] MEDS ORDERED: LOVENOX SUB-Q SCH ×2 (10:00)
[2017-09-01] MEDS: ZESTRIL PO SCH (11:13)
[2017-09-01] MEDS: KEPPRA PO SCH ×2 (11:14→21:51)
[2017-09-01] MEDS: PLAVIX PO SCH (11:14)
[2017-09-01] MEDS: COREG PO SCH ×2 (11:14→21:51)
[2017-09-01] MEDS: PROTONIX PO SCH (11:14)
[2017-09-01 12:59] LABS: Creatine Kinase MB 3.1 ng/mL (0.0-4.0)
--- NOTE | 2017-09-01 15:15 | Consultation ---
History of Present Illness Consult date: 09/01/17 Consult reason: known to you History of present illness: This is a 77 year old male with multiple medical problems. 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 He has chronic atrial fibrillation. He has an indwelling cardiac defibrillator. He has had a difficult history with anticoagulation for his atrial fibrillation, with intracranial hemorrhage 2 while on Coumadin at therapeutic doses and incidents of transient cerebral ischemia while off oral anticoagulation. Despite multiple CVA's he has had minimal to no residual neuro deficit. He is currently maintained on a low dose aspirin and Plavix, no anticoagulation. Co-morbidities includes diabetes mellitus, seizure disorder, hyperlipidemia and hypertension. Patient presents to this hospital with a 2 days history of shortness of breath, admitted with CHF exacerbation. A chest x-ray reports CHF with a moderate right pleural effusion. There were no reports of chest pain. No reports of AICD discharge. Cardiac consultation was requested. Medications and Allergies Allergies Allergy/AdvReac Type Severity Reaction Status Date / Time No Known Allergies Allergy Verified 09/11/13 10:42 Home Medications Medication Instructions Recorded Confirmed Last Taken Type Carvedilol [Coreg] 6.25 mg PO BID #60 tablet 08/30/16 09/01/17 02/28/17 Rx Clopidogrel [Plavix] 75 mg PO QDAY #30 tablet 08/30/16 09/01/17 02/28/17 Rx Furosemide [Lasix TAB] 40 mg PO QDAY #30 tablet 08/30/16 09/01/17 02/28/17 Rx Pantoprazole [Protonix TAB] 40 mg PO QDAY 03/01/17 09/01/17 02/28/17 History Potassium Chloride 20 meq PO DAILY 03/01/17 09/01/17 02/28/17 History levETIRAcetam [Keppra TAB] 750 mg PO BID #60 tablet 03/02/17 09/01/17 Unknown Rx AtorvaSTATin [Lipitor] 40 mg PO QHS #30 tab 03/14/17 09/01/17 Unknown Rx Lisinopril [Zestril] 10 mg PO QAM 09/01/17 09/01/17 Unknown History Active Meds: Active Medications Acetaminophen (Tylenol) 650 mg PO Q4H PRN PRN Reason: Pain MILD(1-3)/Fever >100.5/WELCH Atorvastatin Calcium (Lipitor) 40 mg PO QHS [facility] Bisacodyl (Dulcolax) 10 mg DE QDAY PRN PRN Reason: Constipation unrelieved by MOM Carvedilol (Coreg) 6.25 mg PO BID [facility] Last Admin: 09/01/17 11:14 Dose: 6.25 mg Clopidogrel Bisulfate (Plavix) 75 mg PO QDAY [facility] Last Admin: 09/01/17 11:14 Dose: 75 mg Dextrose (D50w (25gm) Syringe) 50 ml IV PRN PRN PRN Reason: Hypoglycemia Enoxaparin Sodium (Lovenox) 40 mg SUB-Q QDAY@1000 [facility] Last Admin: 09/01/17 11:12 Dose: 40 mg Furosemide (Lasix) 40 mg IV BID@0600,1800 [facility] Last Admin: 09/01/17 06:37 Dose: 40 mg Insulin Aspart (Novolog) 0 units SUB-Q ACHS [facility] PRN Reason: Protocol Last Admin: 09/01/17 11:07 Dose: Not Given Levetiracetam (Keppra) 750 mg PO BID [facility] Last Admin: 09/01/17 11:14 Dose: 750 mg Lisinopril (Zestril) 2.5 mg PO QDAY [facility] Last Admin: 09/01/17 11:13 Dose: 2.5 mg Magnesium Hydroxide (Milk Of Magnesia) 30 ml PO Q4H PRN PRN Reason: Constipation Ondansetron HCl (Zofran) 4 mg IV Q8H PRN PRN Reason: N/V unrelieved by Reglan Pantoprazole Sodium (Protonix) 40 mg PO QDAY [facility] Last Admin: 09/01/17 11:14 Dose: 40 mg Physical Examination Vital Signs Temp Pulse BP Pulse Ox 97.9 F 96 H 144/90 94 08/31/17 17:47 08/31/17 17:47 08/31/17 17:47 08/31/17 17:47 Results 08/31/17 18:00 08/31/17 18:00 Cardiac Enzymes 09/01/17 09/01/17 Range/Units 05:42 12:07 CK-MB (CK-2) 3.5 3.1 (0.0-4.0) ng/mL Coagulation 08/31/17 Range/Units 18:00 PT 14.2 (12.2-14.9) Sec. INR 1.05 (0.87-1.13) APTT 37.7 H (24.2-36.6) Sec. CBC 08/31/17 Range/Units 18:00 WBC 7.4 (4.5-11.0) K/mm3 RBC 4.70 (3.65-5.03) M/mm3 Hgb 13.8 (11.8-15.2) gm/dl Hct 42.0 (35.5-45.6) % Plt Count 181 (140-440) K/mm3 Lymph # 0.7 L (1.2-5.4) K/mm3 [place] # 0.7 (0.0-0.8) K/mm3 Eos # 0.1 (0.0-0.4) K/mm3 Baso # 0.1 (0.0-0.1) K/mm3 Comprehensive Metabolic Panel 08/31/17 Range/Units 18:00 Sodium 136 L (137-145) mmol/L Potassium 4.1 (3.6-5.0) mmol/L Chloride 95.8 L (98-107) mmol/L Carbon Dioxide 23 (22-30) mmol/L BUN 22 H (9-20) mg/dL Creatinine 0.9 (0.8-1.5) mg/dL Glucose 187 H (75-100) mg/dL Calcium 8.6 (8.4-10.2) mg/dL Assessment and Plan Acute systolic heart failure Right Pleural effusion Nonischemic Cardiomyopathy EF 10% 03/2017 [facility] negative x 2 (2004 and 2010) Presence of AICD Hx of Mitral valve replacement normal functioning bioprosthetic MVR on echo 2013 Hx of CVA -on plavix and low dose aspirin as an outpatient Chronic atrial fibrillation considered not a candidate for anticoagulation d/t hx of intracranial hemorrhage. On plavix and low dose aspirin. Seizure disorder Hypertension
[2017-09-01] MEDS ORDERED: COUMADIN PO SCH (17:00)
[2017-09-01] MEDS ORDERED: HEPARIN 10,000 UNITS/10 ML IV ONE (17:01)
[2017-09-01] MEDS ORDERED: HEPARIN/ 0.45% NACL-25,000 UNIT/500 ML 25,000 UNIT/500 ML BAG IV SCH (18:00)
[2017-09-01 18:26] LABS: Hematocrit 42.2 % (35.5-45.6); Hemoglobin 14.3 gm/dl (11.8-15.2)
[2017-09-01 18:38] LABS: INR 1.12 (0.87-1.13)
[2017-09-01 18:39] LABS: Partial Thromboplastin Time 34.7 Sec. (24.2-36.6)
[2017-09-02 04:02] LABS: Basophils % (Auto) 0.5 % (0.0-1.8); Eosinophils # (Auto) 0.2 K/mm3 (0.0-0.4); Eosinophils % (Auto) 2.4 % (0.0-4.3); Hematocrit 40.3 % (35.5-45.6); Hemoglobin 13.2 gm/dl (11.8-15.2); Lymphocytes # (Auto) 0.7 K/mm3 (1.2-5.4); Lymphocytes % (Auto) 9.2 % (13.4-35.0); Mean Corpuscular HGB Conc 33 % (32-34); Mean Corpuscular Hemoglobin 29 pg (28-32); Mean Corpuscular Volume 88 fl (84-94); Monocytes # (Auto) 0.8 K/mm3 (0.0-0.8); Monocytes % (Auto) 10.7 % (0.0-7.3); Platelet Count 162 K/mm3 (140-440); Red Blood Count 4.58 M/mm3 (3.65-5.03); Red Cell Distribution Width 14.9 % (13.2-15.2)
[2017-09-02 04:07] LABS: BUN/Creatinine Ratio 25; Blood Urea Nitrogen 25 mg/dL (9-20); Calcium 8.1 mg/dL (8.4-10.2); Hemolysis Index 4
[2017-09-02 04:12] LABS: INR 1.18 (0.87-1.13)
[2017-09-02 04:13] LABS: Heparin anti-factor XA 0.64 U.I./ml (0.3-0.7)
[2017-09-02] MEDS: LASIX IV SCH ×2 (05:58→18:29)
[2017-09-02] MEDS ORDERED: K-DUR PO NR (09:12)
[2017-09-02] MEDS: KEPPRA PO SCH ×2 (10:01→22:20)
[2017-09-02] MEDS: PROTONIX PO SCH (10:03)
[2017-09-02] MEDS: COREG PO SCH ×2 (10:05→22:21)
[2017-09-02] MEDS: ZESTRIL PO SCH (10:05)
[2017-09-02] MEDS: PLAVIX PO SCH (10:06)
[2017-09-02] MEDS: NOVOLOG SUB-Q SCH ×4 (10:06→22:22)
--- NOTE | 2017-09-02 10:29 | Progress Note ---
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 Otherwise, the mitral valve prosthesis appears to be opening well with a trans-mitral gradient of 5 mmHg. Recent records from [facility] documented an echocardiogram with a similar finding of the left atrial mass, but it is unclear what recommendations if any for management. Plan: Transfer to [place] for CT surgery evaluation of left atrial mass. Subjective Date of service: 09/02/17 Interval history: Nurse reports bright red blood per rectum this morning. IV heparin drip on hold. Objective Vital Signs Temp Pulse Resp Resp BP BP Pulse Ox 09/02/17 10:05 78 104/60 09/02/17 09:38 97.6 F 77 20 108/62 96 09/02/17 08:02 97 09/02/17 06:27 70 09/02/17 04:49 98.4 F 75 20 102/65 90 09/02/17 01:03 97.8 F 67 20 92/52 92 09/01/17 22:00 93 09/01/17 21:51 90 09/01/17 21:24 72 117/67 92 09/01/17 18:13 97.8 F 78 18 108/73 96 09/01/17 16:00 76 09/01/17 15:24 97.8 F 81 18 108/73 95 09/01/17 12:27 97.7 F 78 18 117/73 94 09/01/17 11:41 20 99 09/01/17 11:38 18 09/01/17 11:14 76 116/74 09/01/17 11:13 76 116/74 09/01/17 11:06 97.7 F 80 18 117/73 94 - Physical Examination General: No Apparent Distress HEENT: Positive: PERRL Cardiac: Positive: Other (paced) Lungs: Positive: Decreased Breath Sounds Neuro: Positive: Grossly Intact - Labs and Meds Cardiac Enzymes 01/25/18 Range/Units 12:07 CK-MB (CK-2) 3.1 (0.0-4.0) ng/mL Coagulation 09/01/17 09/02/17 Range/Units 17:45 03:23 PT 15.0 H 15.6 H (12.2-14.9) Sec. INR 1.12 1.18 H (0.87-1.13) APTT 34.7 (24.2-36.6) Sec. CBC 09/01/17 09/02/17 Range/Units 17:45 03:23 WBC 7.6 (4.5-11.0) K/mm3 RBC 4.58 (3.65-5.03) M/mm3 Hgb 14.3 13.2 (11.8-15.2) gm/dl Hct 42.2 40.3 (35.5-45.6) % Plt Count 175 162 (140-440) K/mm3 Lymph # 0.7 L (1.2-5.4) K/mm3 [place] # 0.8 (0.0-0.8) K/mm3 Eos # 0.2 (0.0-0.4) K/mm3 Baso # 0.0 (0.0-0.1) K/mm3 Comprehensive Metabolic Panel 09/02/17 Range/Units 03:23 Sodium 138 (137-145) mmol/L Potassium 3.4 L (3.6-5.0) mmol/L Chloride 97.2 L (98-107) mmol/L Carbon Dioxide 30 D (22-30) mmol/L BUN 25 H (9-20) mg/dL Creatinine 1.0 (0.8-1.5) mg/dL Glucose 124 H (75-100) mg/dL Calcium 8.1 L (8.4-10.2) mg/dL - Imaging and Cardiology EKG: image reviewed
--- NOTE | 2017-09-02 14:03 | Progress Note ---
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 Findings are suggestive of CHF, Mild cardiomegaly , cardiac valve prosthesis and pacemaker AICD, present. 09/02/[address] 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 He has a bioprosthetic mitral valve replacement. Has an AICD in situ. He had cardiothoracic surgery in 2010 for excision of a large left atrial organized thrombus. Over the years, there has been difficulty with maintaining oral anticoagulation with Coumadin. On therapeutic levels of Coumadin, he has had at least 2 brain hemorrhages, but while off Coumadin, the patient has developed recurrent embolic strokes. At a current time it was decided eventually to maintain him on oral antiplatelet therapy with Plavix. The patient is admitted at this time with symptoms of fluid overload heart failure. 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 Otherwise, the mitral valve prosthesis appears to be opening well with a trans-mitral gradient of 5 mmHg. Recent records from [facility] documented an echocardiogram with a similar finding of the left atrial mass, but it is unclear what recommendations if any for management. Recommendations: We will continue heart failure management, with diuretics, afterload reducing agents and beta blockers as tolerated. Start the patient on low-level intravenous anticoagulation with heparin. And restart of anticoagulation therapy with Coumadin. He will not likely be a candidate for a repeat thoracotomy for excision of the recurrent left atrial thrombus, but I will discuss with his cardiothoracic surgeon. It appears most likely option will be conservative management with careful use of anticoagulation and resumption of Coumadin therapy with a low target INR. 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 Otherwise, the mitral valve prosthesis appears to be opening well with a trans-mitral gradient of 5 mmHg. Recent records from [facility] documented an echocardiogram with a similar finding of the left atrial mass, but it is unclear what recommendations if any for management. Plan: Transfer to [place] for CT surgery evaluation of left atrial mass. Under Dr. Lindsey Await bed avaiable History Interval history: Patient was seen and examined. Follow-up on current diagnosis. Overnight uneventful. Patient denies any chest pain, shortness breath, nausea/vomiting or severe headaches. Imaging, nursing note, chart, labs and old chart reviewed. Discussed with patient. Hospitalist Physical - Physical exam Narrative exam: GEN: WDWN, NAD, AWAKE, ALERT, ORIENTATED HEENT: NCAT, EOMI, PERRL, OP Clear NECK: supple, no adenopathy, no thyromegaly, no JVD CVS/HEART: RRR, NORMAL S1S2, NO JVD, pulses present bilaterally CHEST/LUNGS: CTA B, Symmetrical chest expansion, good air entry bilaterally GI/Abdomen: soft, NTND, good bowel sounds, no guarding or rebound /Bladder: no suprapubic tenderness, no CVA or paraspinal tenderness EXT/Skin: no c/c/e, no obvious rash MSK: FROM x 4 Neuro: CN 2-12 grossly intact, no new focal deficits Psych: calm - Constitutional Vitals: Temp Pulse Resp BP Pulse Ox 98.6 F 76 20 103/66 95 09/02/17 12:12 09/02/17 12:12 09/02/17 12:12 09/02/17 12:12 09/02/17 12:12 Results - Labs CBC & Chem 7: 09/02/17 03:23 09/02/17 03:23 Labs: Laboratory Last Values WBC 7.6 K/mm3 (4.5-11.0) 09/02/17 03:23 RBC 4.58 M/mm3 (3.65-5.03) 09/02/17 03:23 Hgb 13.2 gm/dl (11.8-15.2) 09/02/17 03:23 Hct 40.3 % (35.5-45.6) 09/02/17 03:23 MCV 88 fl (84-94) 09/02/17 03:23 MCH 29 pg (28-32) 09/02/17 03:23 MCHC 33 % (32-34) 09/02/17 03:23 RDW 14.9 % (13.2-15.2) 09/02/17 03:23 Plt Count 162 K/mm3 (140-440) 09/02/17 03:23 Lymph % (Auto) 9.2 % (13.4-35.0) L 09/02/17 03:23 [place] % (Auto) 10.7 % (0.0-7.3) H 09/02/17 03:23 Eos % (Auto) 2.4 % (0.0-4.3) 09/02/17 03:23 Baso % (Auto) 0.5 % (0.0-1.8) 09/02/17 03:23 Lymph # 0.7 K/mm3 (1.2-5.4) L 09/02/17 03:23 [place] # 0.8 K/mm3 (0.0-0.8) 09/02/17 03:23 Eos # 0.2 K/mm3 (0.0-0.4) 09/02/17 03:23 Baso # 0.0 K/mm3 (0.0-0.1) 09/02/17 03:23 Seg Neutrophils % 77.2 % (40.0-70.0) H 09/02/17 03:23 Seg Neutrophils # 5.8 K/mm3 (1.8-7.7) 09/02/17 03:23 PT 15.6 Sec. (12.2-14.9) H 09/02/17 03:23 INR 1.18 (0.87-1.13) H 09/02/17 03:23 APTT 34.7 Sec. (24.2-36.6) 09/01/17 17:45 Heparin Anti-Xa Level 1.04 U.I./ml (0.3-0.7) H 09/02/17 09:56 Sodium 138 mmol/L (137-145) 09/02/17 03:23 Potassium 3.4 mmol/L (3.6-5.0) L 09/02/17 03:23 Chloride 97.2 mmol/L (98-107) L 09/02/17 03:23 Carbon Dioxide 30 mmol/L (22-30) D 09/02/17 03:23 Anion Gap 14 mmol/L 09/02/17 03:23 BUN 25 mg/dL (9-20) H 09/02/17 03:23 Creatinine 1.0 mg/dL (0.8-1.5) 09/02/17 03:23 Estimated GFR > 60 ml/min 09/02/17 03:23 BUN/Creatinine Ratio 25 % 09/02/17 03:23 Glucose 124 mg/dL (75-100) H 09/02/17 03:23 POC Glucose 126 (70-105) H 09/01/17 21:13 Calcium 8.1 mg/dL (8.4-10.2) L 09/02/17 03:23 Total Creatine Kinase 125 units/L (55-170) 09/01/17 12:07 CK-MB (CK-2) 3.1 ng/mL (0.0-4.0) 09/01/17 12:07 CK-MB (CK-2) Rel Index 2.4 (0-4) 09/01/17 12:07 Troponin T 0.010 ng/mL (0.00-0.029) 09/01/17 12:07 NT-Pro-B Natriuret Pep 1843 pg/mL (0-900) H 08/31/17 18:00
--- NOTE | 2017-09-02 14:16 | Discharge Summary ---
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 Findings are suggestive of CHF, Mild cardiomegaly , cardiac valve prosthesis and pacemaker AICD, present. 09/02/[address] 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 He has a bioprosthetic mitral valve replacement. Has an AICD in situ. He had cardiothoracic surgery in 2010 for excision of a large left atrial organized thrombus. Over the years, there has been difficulty with maintaining oral anticoagulation with Coumadin. On therapeutic levels of Coumadin, he has had at least 2 brain hemorrhages, but while off Coumadin, the patient has developed recurrent embolic strokes. At a current time it was decided eventually to maintain him on oral antiplatelet therapy with Plavix. The patient is admitted at this time with symptoms of fluid overload heart failure. 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 Otherwise, the mitral valve prosthesis appears to be opening well with a trans-mitral gradient of 5 mmHg. Recent records from [facility] documented an echocardiogram with a similar finding of the left atrial mass, but it is unclear what recommendations if any for management. Recommendations: We will continue heart failure management, with diuretics, afterload reducing agents and beta blockers as tolerated. Start the patient on low-level intravenous anticoagulation with heparin. And restart of anticoagulation therapy with Coumadin. He will not likely be a candidate for a repeat thoracotomy for excision of the recurrent left atrial thrombus, but I will discuss with his cardiothoracic surgeon. It appears most likely option will be conservative management with careful use of anticoagulation and resumption of Coumadin therapy with a low target INR. 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 Otherwise, the mitral valve prosthesis appears to be opening well with a trans-mitral gradient of 5 mmHg. Recent records from [facility] documented an echocardiogram with a similar finding of the left atrial mass, but it is unclear what recommendations if any for management. Recurrent of Left atrial thrombus Plan: Transfer to [place] Once bed available, for CT surgery evaluation of left atrial mass. Under Dr. Lindsey Disposition: DC/TX-70 ANOTHER TYPE HLTHCARE Time spent for discharge: 36 minutes Core Measure Documentation - Palliative Care Palliative Care/ Comfort Measures: Not Applicable - Core Measures Any of the following diagnoses?: heart failure - VTE Discharge Requirements Deep Vein Thrombosis/Pulmonary Embolism Present on Admission: No Has pt received <5 days of overlap therapy or INR<2.0: No Anticoagulant overlap therapy prescribed at discharge: No Contraindication No Overlap Therapy order at DC: Not Indicated - Heart Failure Discharge Requirements ALESSIO/ARB for LVSD if EF <40%: Yes Beta bandar at discharge: Yes Exam - Constitutional Vitals: Temp Pulse Resp BP Pulse Ox 98.6 F 76 20 103/66 95 09/02/17 12:12 09/02/17 12:12 09/02/17 12:12 09/02/17 12:12 09/02/17 12:12 Plan Activity: other (no strenous activity) Diet: low salt
--- NOTE | 2017-09-02 17:16 | Gastroenterology Consultation ---
History of Present Illness - Reason for Consult Consult date: 09/02/17 hematochezia Requesting physician: MARTA HURTADO - History of Present Illness Mr Crandall is a 77 yo male who presents with sob. History primarily gathered from chart review and discussion with staff (pt's primary physician and nursing staff). Pt has a complicated cardiac history including CAD, end- stage cardiomyopathy, and left atrial thrombus requiring prior CT surgery intervention. He has had complications with anticoagulation in the past including intracranial hemorrhage. He was on anticoagulation (heparin drip) and plavix following admission, with plans to transfer to [place] CT surgery service. Today, he developed episodes of hematochezia with bm's. Reportedly small amt initially but then larger in amount later in the morning per pt's nurse. At the time of exam, pt had a small amt of scant hematochezia on toilet paper with wipes. He denies abd pain, constipation/diarrhea, unclear if he has had prior colonoscopy. Labs and vitals stable. Past History Past Medical History: other (CHF, CAD, LA thrombus) Social history: no significant social history Family history: no significant family history Medications and Allergies Allergies Allergy/AdvReac Type Severity Reaction Status Date / Time No Known Allergies Allergy Verified 09/11/13 10:42 Home Medications Medication Instructions Recorded Confirmed Last Taken Type Carvedilol [Coreg] 6.25 mg PO BID #60 tablet 08/30/16 09/01/17 02/28/17 Rx Clopidogrel [Plavix] 75 mg PO QDAY #30 tablet 08/30/16 09/01/17 02/28/17 Rx Furosemide [Lasix TAB] 40 mg PO QDAY #30 tablet 08/30/16 09/01/17 02/28/17 Rx Pantoprazole [Protonix TAB] 40 mg PO QDAY 03/01/17 09/01/17 02/28/17 History Potassium Chloride 20 meq PO DAILY 03/01/17 09/01/17 02/28/17 History levETIRAcetam [Keppra TAB] 750 mg PO BID #60 tablet 03/02/17 09/01/17 Unknown Rx AtorvaSTATin [Lipitor] 40 mg PO QHS #30 tab 03/14/17 09/01/17 Unknown Rx Lisinopril [Zestril] 10 mg PO QAM 09/01/17 09/01/17 Unknown History Active Meds: Active Medications Acetaminophen (Tylenol) 650 mg PO Q4H PRN PRN Reason: Pain MILD(1-3)/Fever >100.5/WELCH Atorvastatin Calcium (Lipitor) 40 mg PO QHS [facility] Last Admin: 09/01/17 21:51 Dose: 40 mg Bisacodyl (Dulcolax) 10 mg GA QDAY PRN PRN Reason: Constipation unrelieved by MOM Carvedilol (Coreg) 6.25 mg PO BID [facility] Last Admin: 09/02/17 10:05 Dose: Not Given Clopidogrel Bisulfate (Plavix) 75 mg PO QDAY [facility] Last Admin: 09/02/17 10:06 Dose: Not Given Dextrose (D50w (25gm) Syringe) 50 ml IV PRN PRN PRN Reason: Hypoglycemia Furosemide (Lasix) 40 mg IV BID@0600,1800 [facility] Last Admin: 09/02/17 05:58 Dose: 40 mg Insulin Aspart (Novolog) 0 units SUB-Q ACHS [facility] PRN Reason: Protocol Last Admin: 09/02/17 12:44 Dose: Not Given Levetiracetam (Keppra) 750 mg PO BID [facility] Last Admin: 09/02/17 10:01 Dose: 750 mg Lisinopril (Zestril) 2.5 mg PO QDAY [facility] Last Admin: 09/02/17 10:05 Dose: Not Given Magnesium Hydroxide (Milk Of Magnesia) 30 ml PO Q4H PRN PRN Reason: Constipation Ondansetron HCl (Zofran) 4 mg IV Q8H PRN PRN Reason: N/V unrelieved by Reglan Pantoprazole Sodium (Protonix) 40 mg PO QDAY [facility] Last Admin: 09/02/17 10:03 Dose: 40 mg Review of Systems - Review of Systems All systems: negative (per HPI) Exam - Constitutional Vital Signs: Temp Pulse Resp BP Pulse Ox 98.4 F 81 20 126/61 81 L 09/02/17 16:51 09/02/17 16:51 09/02/17 16:51 09/02/17 16:51 09/02/17 16:51 General appearance: no acute distress - EENT Eyes: PERRL, EOM intact ENT: hearing intact - Respiratory Respiratory effort: normal Respiratory: bilateral: CTA - Cardiovascular Heart Sounds: Present: S1 & S2, systolic murmur Extremities: No edema - Gastrointestinal General gastrointestinal: Present: soft, non-tender, normal bowel sounds - Neurologic Neurological: alert and oriented x3 - Psychiatric Psychiatric: appropriate mood/affect - Labs CBC & Chem 7: 09/02/17 03:23 09/02/17 03:23 Lab Results: Laboratory Results - last 24 hr 09/01/17 09/01/17 09/01/17 11:10 15:27 17:45 WBC RBC Hgb 14.3 Hct 42.2 MCV MCH MCHC RDW Plt Count 175 Lymph % (Auto) [place] % (Auto) Eos % (Auto) Baso % (Auto) Lymph # [place] # Eos # Baso # Seg Neutrophils % Seg Neutrophils # PT INR APTT Heparin Anti-Xa Level Sodium Potassium Chloride Carbon Dioxide Anion Gap BUN Creatinine Estimated GFR BUN/Creatinine Ratio Glucose POC Glucose 128 H 195 H Calcium 09/01/17 09/01/17 09/02/17 17:45 21:13 03:23 WBC 7.6 RBC 4.58 Hgb 13.2 Hct 40.3 MCV 88 MCH 29 MCHC 33 RDW 14.9 Plt Count 162 Lymph % (Auto) 9.2 L [place] % (Auto) 10.7 H Eos % (Auto) 2.4 Baso % (Auto) 0.5 Lymph # 0.7 L [place] # 0.8 Eos # 0.2 Baso # 0.0 Seg Neutrophils % 77.2 H Seg Neutrophils # 5.8 PT 15.0 H INR 1.12 APTT 34.7 Heparin Anti-Xa Level Sodium Potassium Chloride Carbon Dioxide Anion Gap BUN Creatinine Estimated GFR BUN/Creatinine Ratio Glucose POC Glucose 126 H Calcium 09/02/17 09/02/17 09/02/17 03:23 03:23 09:56 WBC RBC Hgb Hct MCV MCH MCHC RDW Plt Count Lymph % (Auto) [place] % (Auto) Eos % (Auto) Baso % (Auto) Lymph # [place] # Eos # Baso # Seg Neutrophils % Seg Neutrophils # PT 15.6 H INR 1.18 H APTT Heparin Anti-Xa Level 0.64 1.04 H Sodium 138 Potassium 3.4 L Chloride 97.2 L Carbon Dioxide 30 D Anion Gap 14 BUN 25 H Creatinine 1.0 Estimated GFR > 60 BUN/Creatinine Ratio 25 Glucose 124 H POC Glucose Calcium 8.1 L Assessment and Plan 1. Hematochezia - small amt on toilet paper at time of exam, but reportedly larger episode this morning at the time of bm. this was in the setting of anticoagulation which has been stopped. suspect outlet-related bleed, however unable to r/o other possible etiologies. he does not seem to be having active or significant bleeding at present time. -discussed with primary. transfer has been held due to bleeding. options are to monitor and transfer tomorrow if h/h stable and if no further episodes. if pt continues to have hematochezia, can prep for colonoscopy if cleared by cardiology here. -miralax daily to avoid constipation/hemorrhoidal cream
[2017-09-03 06:36] LABS: Hematocrit 41.7 % (35.5-45.6); Hemoglobin 13.8 gm/dl (11.8-15.2); Mean Corpuscular HGB Conc 33 % (32-34); Mean Corpuscular Hemoglobin 29 pg (28-32); Mean Corpuscular Volume 89 fl (84-94); Platelet Count 161 K/mm3 (140-440); Red Blood Count 4.72 M/mm3 (3.65-5.03); Red Cell Distribution Width 15.4 % (13.2-15.2)
[2017-09-03] MEDS: LASIX IV SCH ×2 (06:48→20:30)
[2017-09-03 06:50] LABS: INR 1.1 (0.87-1.13)
[2017-09-03 07:00] LABS: BUN/Creatinine Ratio 28; Blood Urea Nitrogen 25 mg/dL (9-20); Calcium 8.7 mg/dL (8.4-10.2); Hemolysis Index 124
[2017-09-03] MEDS: NOVOLOG SUB-Q SCH ×4 (08:41→22:50)
[2017-09-03] MEDS: PLAVIX PO SCH (10:56)
[2017-09-03] MEDS: KEPPRA PO SCH ×2 (10:56→22:44)
[2017-09-03] MEDS: COREG PO SCH ×2 (10:56→22:49)
[2017-09-03] MEDS: ZESTRIL PO SCH (10:57)
[2017-09-03] MEDS: PROTONIX PO SCH (10:57)
--- NOTE | 2017-09-03 12:31 | Gastroenterology Progress Note ---
Assessment and Plan GI: no signs bleeding overnight, no GI complaints - h/h stable - no plans to scope or other GI interventions at this time - continue current meds and diet - ok to transfer from GI standpoint - will follow for now Subjective Date of service: 09/03/17 Interval history: - no signs bleeding overnight Objective - Constitutional Vitals: Temp Pulse Resp BP Pulse Ox 97.5 F L 75 14 100/52 95 09/03/17 08:34 09/03/17 08:34 09/03/17 08:34 09/03/17 08:34 09/03/17 10:15 General appearance: no acute distress - Respiratory Respiratory: bilateral: CTA - Cardiovascular Rhythm: regular Heart Sounds: Present: S1 & S2 - Gastrointestinal General gastrointestinal: Present: soft, non-tender - Labs CBC & Chem 7: 09/03/17 05:55 09/03/17 05:55 Labs: Laboratory Results - last 24 hr 09/02/17 09/02/17 09/02/17 07:48 11:09 16:23 WBC RBC Hgb Hct MCV MCH MCHC RDW Plt Count PT INR Sodium Potassium Chloride Carbon Dioxide Anion Gap BUN Creatinine Estimated GFR BUN/Creatinine Ratio Glucose POC Glucose 132 H 117 H 131 H Calcium 09/02/17 09/03/17 09/03/17 22:14 05:55 05:55 WBC 6.6 RBC 4.72 Hgb 13.8 Hct 41.7 MCV 89 MCH 29 MCHC 33 RDW 15.4 H Plt Count 161 PT 14.8 INR 1.10 Sodium Potassium Chloride Carbon Dioxide Anion Gap BUN Creatinine Estimated GFR BUN/Creatinine Ratio Glucose POC Glucose 226 H Calcium 09/03/17 09/03/17 05:55 08:06 WBC RBC Hgb Hct MCV MCH MCHC RDW Plt Count PT INR Sodium 137 Potassium 4.5 D Chloride 98.2 Carbon Dioxide 24 Anion Gap 19 BUN 25 H Creatinine 0.9 Estimated GFR > 60 BUN/Creatinine Ratio 28 Glucose 206 H POC Glucose 178 H Calcium 8.7
--- NOTE | 2017-09-03 14:53 | Discharge Summary ---
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 Findings are suggestive of CHF, Mild cardiomegaly , cardiac valve prosthesis and pacemaker AICD, present. 09/02/[address] 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 He has a bioprosthetic mitral valve replacement. Has an AICD in situ. He had cardiothoracic surgery in 2010 for excision of a large left atrial organized thrombus. Over the years, there has been difficulty with maintaining oral anticoagulation with Coumadin. On therapeutic levels of Coumadin, he has had at least 2 brain hemorrhages, but while off Coumadin, the patient has developed recurrent embolic strokes. At a current time it was decided eventually to maintain him on oral antiplatelet therapy with Plavix. The patient is admitted at this time with symptoms of fluid overload heart failure. 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 Otherwise, the mitral valve prosthesis appears to be opening well with a trans-mitral gradient of 5 mmHg. Recent records from [facility] documented an echocardiogram with a similar finding of the left atrial mass, but it is unclear what recommendations if any for management. Recommendations: We will continue heart failure management, with diuretics, afterload reducing agents and beta blockers as tolerated. Start the patient on low-level intravenous anticoagulation with heparin. And restart of anticoagulation therapy with Coumadin. He will not likely be a candidate for a repeat thoracotomy for excision of the recurrent left atrial thrombus, but I will discuss with his cardiothoracic surgeon. It appears most likely option will be conservative management with careful use of anticoagulation and resumption of Coumadin therapy with a low target INR. Prognosis is very poor." Acute on chronic systolic heart failure: treated with iv lasix bid Nonischemic Cardiomyopathy, [facility] negative x 2 (2004 and 2010) Presence of AICD Mitral valve replacement, normal functioning bioprosthetic MVR on echo 2013 Hx of CVA/ICH -on plavix and low dose aspirin as an outpatient Chronic atrial fibrillation, unable to anticoagulate due to ICH x 2 Seizure disorder Hypertension related to heart disease Hx of excision of a large left atrial organized thrombus in 2010. 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 Otherwise, the mitral valve prosthesis appears to be opening well with a trans-mitral gradient of 5 mmHg. Recent records from [facility] documented an echocardiogram with a similar finding of the left atrial mass, but it is unclear what recommendations if any for management. Plan: Transfer to [place] for CT surgery evaluation of left atrial mass. Under Dr. Lindsey Await bed avaiable H.H remains above 13. No further bleed noted. GI cleared patient for transfer. Will resume heparin and transfer patient to [facility] Once a bed is available. Disposition: DC/TX-70 ANOTHER TYPE THCARE Time spent for discharge: 35 MINS Core Measure Documentation - Palliative Care Palliative Care/ Comfort Measures: Not Applicable Exam - Physical Exam Narrative exam: GEN: WDWN, NAD, AWAKE, ALERT, ORIENTATED HEENT: NCAT, EOMI, PERRL, OP Clear NECK: supple, no adenopathy, no thyromegaly, no JVD CVS/HEART: RRR, NORMAL S1S2, NO JVD, pulses present bilaterally CHEST/LUNGS: CTA B, Symmetrical chest expansion, good air entry bilaterally GI/Abdomen: soft, NTND, good bowel sounds, no guarding or rebound /Bladder: no suprapubic tenderness, no CVA or paraspinal tenderness EXT/Skin: no c/c/e, no obvious rash MSK: FROM x 4 Neuro: CN 2-12 grossly intact, no new focal deficits Psych: calm - Constitutional Vitals: Temp Pulse Resp BP Pulse Ox 97.6 F 70 14 117/76 98 09/03/17 12:03 09/03/17 12:03 09/03/17 12:03 09/03/17 12:03 09/03/17 12:03 Plan Activity: advance as tolerated, fall precautions Additional Instructions: fOLLOW UP PER [facility] DOCS ON DISCHARGE Follow up with: PRIMARY CARE, [Primary Care Provider] - 7 Days
--- NOTE | 2017-09-03 14:55 | Progress Note ---
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 Findings are suggestive of CHF, Mild cardiomegaly , cardiac valve prosthesis and pacemaker AICD, present. 09/02/[address] 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 He has a bioprosthetic mitral valve replacement. Has an AICD in situ. He had cardiothoracic surgery in 2010 for excision of a large left atrial organized thrombus. Over the years, there has been difficulty with maintaining oral anticoagulation with Coumadin. On therapeutic levels of Coumadin, he has had at least 2 brain hemorrhages, but while off Coumadin, the patient has developed recurrent embolic strokes. At a current time it was decided eventually to maintain him on oral antiplatelet therapy with Plavix. The patient is admitted at this time with symptoms of fluid overload heart failure. 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 Otherwise, the mitral valve prosthesis appears to be opening well with a trans-mitral gradient of 5 mmHg. Recent records from [facility] documented an echocardiogram with a similar finding of the left atrial mass, but it is unclear what recommendations if any for management. Recommendations: We will continue heart failure management, with diuretics, afterload reducing agents and beta blockers as tolerated. Start the patient on low-level intravenous anticoagulation with heparin. And restart of anticoagulation therapy with Coumadin. He will not likely be a candidate for a repeat thoracotomy for excision of the recurrent left atrial thrombus, but I will discuss with his cardiothoracic surgeon. It appears most likely option will be conservative management with careful use of anticoagulation and resumption of Coumadin therapy with a low target INR. 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 Otherwise, the mitral valve prosthesis appears to be opening well with a trans-mitral gradient of 5 mmHg. Recent records from [facility] documented an echocardiogram with a similar finding of the left atrial mass, but it is unclear what recommendations if any for management. Plan: H.H remains above 13. No further bleed noted. GI cleared patient for transfer. Will resume heparin and transfer patient to [facility] Once a bed is available. Transfer to [place] for CT surgery evaluation of left atrial mass. Under Dr. Lindsey Await bed available, in the mean time will resume heparin History Interval history: Patient seen and examined in no acute distress. No further bleeding noted. Hospitalist Physical - Physical exam Narrative exam: GEN: WDWN, NAD, AWAKE, ALERT, ORIENTATED HEENT: NCAT, EOMI, PERRL, OP Clear NECK: supple, no adenopathy, no thyromegaly, no JVD CVS/HEART: RRR, NORMAL S1S2, NO JVD, pulses present bilaterally CHEST/LUNGS: CTA B, Symmetrical chest expansion, good air entry bilaterally GI/Abdomen: soft, NTND, good bowel sounds, no guarding or rebound /Bladder: no suprapubic tenderness, no CVA or paraspinal tenderness EXT/Skin: no c/c/e, no obvious rash MSK: FROM x 4 Neuro: CN 2-12 grossly intact, no new focal deficits Psych: calm - Constitutional Vitals: Temp Pulse Resp BP Pulse Ox 97.6 F 70 14 117/76 98 09/03/17 12:03 09/03/17 12:03 09/03/17 12:03 09/03/17 12:03 09/03/17 12:03 Results - Labs CBC & Chem 7: 09/03/17 05:55 09/03/17 05:55 Labs: Laboratory Last Values WBC 6.6 K/mm3 (4.5-11.0) 09/03/17 05:55 RBC 4.72 M/mm3 (3.65-5.03) 09/03/17 05:55 Hgb 13.8 gm/dl (11.8-15.2) 09/03/17 05:55 Hct 41.7 % (35.5-45.6) 09/03/17 05:55 MCV 89 fl (84-94) 09/03/17 05:55 MCH 29 pg (28-32) 09/03/17 05:55 MCHC 33 % (32-34) 09/03/17 05:55 RDW 15.4 % (13.2-15.2) H 09/03/17 05:55 Plt Count 161 K/mm3 (140-440) 09/03/17 05:55 Lymph % (Auto) 9.2 % (13.4-35.0) L 09/02/17 03:23 [place] % (Auto) 10.7 % (0.0-7.3) H 09/02/17 03:23 Eos % (Auto) 2.4 % (0.0-4.3) 09/02/17 03:23 Baso % (Auto) 0.5 % (0.0-1.8) 09/02/17 03:23 Lymph # 0.7 K/mm3 (1.2-5.4) L 09/02/17 03:23 [place] # 0.8 K/mm3 (0.0-0.8) 09/02/17 03:23 Eos # 0.2 K/mm3 (0.0-0.4) 09/02/17 03:23 Baso # 0.0 K/mm3 (0.0-0.1) 09/02/17 03:23 Seg Neutrophils % 77.2 % (40.0-70.0) H 09/02/17 03:23 Seg Neutrophils # 5.8 K/mm3 (1.8-7.7) 09/02/17 03:23 PT 14.8 Sec. (12.2-14.9) 09/03/17 05:55 INR 1.10 (0.87-1.13) 09/03/17 05:55 APTT 34.7 Sec. (24.2-36.6) 09/01/17 17:45 Heparin Anti-Xa Level 1.04 U.I./ml (0.3-0.7) H 09/02/17 09:56 Sodium 137 mmol/L (137-145) 09/03/17 05:55 Potassium 4.5 mmol/L (3.6-5.0) D 09/03/17 05:55 Chloride 98.2 mmol/L (98-107) 09/03/17 05:55 Carbon Dioxide 24 mmol/L (22-30) 09/03/17 05:55 Anion Gap 19 mmol/L 09/03/17 05:55 BUN 25 mg/dL (9-20) H 09/03/17 05:55 Creatinine 0.9 mg/dL (0.8-1.5) 09/03/17 05:55 Estimated GFR > 60 ml/min 09/03/17 05:55 BUN/Creatinine Ratio 28 % 09/03/17 05:55 Glucose 206 mg/dL (75-100) H 09/03/17 05:55 POC Glucose 178 (70-105) H 09/03/17 08:06 Calcium 8.7 mg/dL (8.4-10.2) 09/03/17 05:55 Total Creatine Kinase 125 units/L (55-170) 09/01/17 12:07 CK-MB (CK-2) 3.1 ng/mL (0.0-4.0) 09/01/17 12:07 CK-MB (CK-2) Rel Index 2.4 (0-4) 09/01/17 12:07 Troponin T 0.010 ng/mL (0.00-0.029) 09/01/17 12:07 NT-Pro-B Natriuret Pep 1843 pg/mL (0-900) H 08/31/17 18:00
[2017-09-03] MEDS ORDERED: HEPARIN 25,000 UNIT in D5W 497.5 ML IV SCH (19:00)
[2017-09-03 19:32] LABS: INR 1.03 (0.87-1.13)
[2017-09-03 19:52] VITALS: BP 101/55
--- NOTE | 2017-09-03 22:31 | Progress Note ---
Assessment and Plan - Patient Problems (1) Left atrial thrombus Current Visit: Yes Status: Acute Plan to address problem: CAREFUL ANTICOAGULATION (2) History of mitral valve replacement with porcine valve Current Visit: Yes Status: Chronic (3) Seizure Current Visit: No Status: Acute (4) TIA (transient ischemic attack) Onset Date: 05/04/14 Current Visit: No Status: Acute Qualifiers: Transient cerebral ischemia type: unspecified Qualified Code(s): G45.9 - Transient cerebral ischemic attack, unspecified (5) Ventricular tachycardia Current Visit: No Status: Acute (6) Atrial fibrillation Current Visit: No Status: Chronic (7) CHF (congestive heart failure) Current Visit: No Status: Chronic Subjective Date of service: 09/03/17 Interval history: FEELS BETTER Objective Vital Signs Temp Pulse Resp Resp BP BP Pulse Ox 09/03/17 19:51 97.8 F 67 20 101/55 95 09/03/17 16:14 97.7 F 70 18 107/61 98 09/03/17 12:03 97.6 F 70 14 117/76 98 09/03/17 10:15 95 09/03/17 08:34 97.5 F L 75 14 100/52 95 09/03/17 06:44 97.6 F 70 20 110/70 95 09/03/17 05:22 103 H 20 09/03/17 01:13 98.4 F 103 H 20 97/70 99 09/03/17 01:02 98.4 F 54 L 20 103/62 95 - Physical Examination General: No Apparent Distress HEENT: Positive: PERRL Neck: Positive: neck supple Cardiac: Positive: Reg Rate and Rhythm, Systolic Murmur Lungs: Positive: clear to auscultation Neuro: Positive: Grossly Intact - Labs and Meds Coagulation 09/03/17 09/03/17 Range/Units 05:55 18:55 PT 14.8 14.0 (12.2-14.9) Sec. INR 1.10 1.03 (0.87-1.13) APTT 36.0 (24.2-36.6) Sec. CBC 09/03/17 Range/Units 05:55 WBC 6.6 (4.5-11.0) K/mm3 RBC 4.72 (3.65-5.03) M/mm3 Hgb 13.8 (11.8-15.2) gm/dl Hct 41.7 (35.5-45.6) % Plt Count 161 (140-440) K/mm3 Comprehensive Metabolic Panel 09/03/17 Range/Units 05:55 Sodium 137 (137-145) mmol/L Potassium 4.5 D (3.6-5.0) mmol/L Chloride 98.2 (98-107) mmol/L Carbon Dioxide 24 (22-30) mmol/L BUN 25 H (9-20) mg/dL Creatinine 0.9 (0.8-1.5) mg/dL Glucose 206 H (75-100) mg/dL Calcium 8.7 (8.4-10.2) mg/dL - Imaging and Cardiology EKG: image reviewed
== END 2017-09-03 23:00 | disposition short-term general hospital (02) | DRG 292 ==
LOC: ED 17:34 → 4A 09-01 05:27
PROVIDERS: ADMIT Internal Medicine; ATTEND Internal Medicine
DX: I11.0 Hypertensive heart disease with heart failure (principal); J90 Pleural effusion, not elsewhere classified; I47.2 Ventricular tachycardia; K92.1 Melena; I48.91 Unspecified atrial fibrillation; E78.5 Hyperlipidemia, unspecified; E11.9 Type 2 diabetes mellitus without complications; I25.10 Atherosclerotic heart disease of native coronary artery without angina pectoris; Z86.73 Personal history of transient ischemic attack (TIA), and cerebral infarction without residual deficits; Z95.810 Presence of automatic (implantable) cardiac defibrillator; I25.2 Old myocardial infarction; Z82.49 Family history of ischemic heart disease and other diseases of the circulatory system; Z95.1 Presence of aortocoronary bypass graft; I42.9 Cardiomyopathy, unspecified; G40.909 Epilepsy, unspecified, not intractable, without status epilepticus; I50.23 Acute on chronic systolic (congestive) heart failure; I51.3 Intracardiac thrombosis, not elsewhere classified
CPT/HCPCS: 36415; 71046; 80048; 82550; 82553; 82962; 83880; 84484; 85014; 85018; 85025; 85027; 85049; 85520; 85610; 85730; 93005; 93010; 93306; 96372; 96374; 99285; A9270-GY; J1644; J1650; J1815; J1940; J7060

== ENCOUNTER 2019-05-10 10:49 | Inpatient (IN) | payer MEDICARE, OTHER ==
[2019-05-10] MEDS ORDERED: ALBUTEROL 2.5 MG/3 ML NEBU IH ONE (10:59)
[2019-05-10] MEDS ORDERED: IPRATROPIUM 0.02% NEBU 2.5 ML IH ONE (10:59)
[2019-05-10] MEDS ORDERED: BENZONATATE 100 MG CAP PO ONE (11:04)
--- NOTE | 2019-05-10 11:13 | Emergency Department Report ---
HPI - General Chief Complaint: Dyspnea/Respdistress Time Seen by Provider: 05/10/19 10:55 - HPI HPI: Room 18 The pt is a 78 y/o M p/w a cc of cough. The pt does not answer questions and family is not at bedside currently. Per nursing the pt has has SOB since 09:00. The pt exhibits frequent coughing and occ labored respirations. 11:50 Family at bedside and states pt began c/o CP and SOB this morning. Pt describes the CP as squeezing in nature. Pt denies diaphoresis or n/v. Pt currently gives his CP a score of 6/10 ED Past Medical Hx - Past Medical History Previous Medical History?: Yes Hx CVA: Yes (2014, no residual deficits) Hx Heart Attack/AMI: Yes (2011) Hx Congestive Heart Failure: Yes (ejection fraction 10-15%) Hx Diabetes: Yes Hx Seizures: Yes Additional medical history: CAD, high cholesterol, A-fib, TIA - Surgical History Past Surgical History?: Yes Hx Open Heart Surgery: Yes Hx Internal Defibrillator: Yes Additional Surgical History: porcine mitral valve repair, pacemaker - Family History Family history: no significant - Social History Smoking Status: Unknown if ever smoked - Medications Home Medications: Home Medications Medication Instructions Recorded Confirmed Last Taken Type Carvedilol [Coreg] 6.25 mg PO BID #60 tablet 08/30/16 07/19/18 02/28/17 Rx Clopidogrel [Plavix] 75 mg PO QDAY #30 tablet 08/30/16 07/19/18 02/28/17 Rx Furosemide [Lasix TAB] 40 mg PO QDAY #30 tablet 08/30/16 07/19/18 02/28/17 Rx Pantoprazole [Protonix TAB] 40 mg PO QDAY 03/01/17 07/19/18 02/28/17 History Potassium Chloride 20 meq PO DAILY 03/01/17 07/19/18 02/28/17 History levETIRAcetam [Keppra TAB] 750 mg PO BID #60 tablet 03/02/17 07/19/18 Unknown Rx AtorvaSTATin [Lipitor] 40 mg PO QHS #30 tab 03/14/17 07/19/18 Unknown Rx Lisinopril [Zestril] 10 mg PO QAM 09/01/17 07/19/18 Unknown History Apixaban [Eliquis] 5 mg PO BID #60 tablet 07/24/18 Unknown Rx ED Review of Systems ROS: Stated complaint: EVA Other details as noted in HPI Comment: Unobtainable due to pts medical conditions Physical Exam - Physical Exam Vital Signs: Vital Signs 05/10/19 05/10/19 11:04 11:06 Temperature 98.5 F Pulse Rate 71 Pulse Rate [ 70 Bilateral] Respiratory 18 Rate Respiratory 14 Rate [Bilateral ] Blood Pressure 129/68 [Left] O2 Sat by Pulse 97 Oximetry Physical Exam: GEN: WD WN male lying on stretcher with frequent coughing HEENT: NC AT NECK: no stridor CV: rrr no m/r/g PULM: frequent coughing. BS equal bilat ABD: S/ND SKIN: no ptx NEURO: Pt awake and alert but does not answer questions ED Course Vital Signs 05/10/19 05/10/19 11:04 11:06 Temperature 98.5 F Pulse Rate 71 Pulse Rate [ 70 Bilateral] Respiratory 18 Rate Respiratory 14 Rate [Bilateral ] Blood Pressure 129/68 [Left] O2 Sat by Pulse 97 Oximetry ED Medical Decision Making - Lab Data Result diagrams: 05/10/19 11:45 05/10/19 11:45 Laboratory Tests 05/10/19 05/10/19 05/10/19 11:45 11:45 11:45 WBC 8.3 RBC 4.11 Hgb 12.7 Hct 36.8 MCV 90 MCH 31 MCHC 35 H RDW 13.6 Plt Count 140 Lymph % (Auto) 12.7 L [place] % (Auto) 7.6 H Eos % (Auto) 0.7 Baso % (Auto) 0.2 Lymph # 1.1 L [place] # 0.6 Eos # 0.1 Baso # 0.0 Seg Neutrophils % 78.8 H Seg Neutrophils # 6.5 PT INR Sodium 130 L Potassium 4.7 Chloride 95.4 L Carbon Dioxide 20 L Anion Gap 19 BUN 22 H Creatinine 1.2 Estimated GFR 59 BUN/Creatinine Ratio 18 Glucose 268 H Lactic Acid 2.40 H* Calcium 9.1 Total Creatine Kinase 302 H CK-MB (CK-2) 3.9 CK-MB (CK-2) Rel Index 1.2 Troponin T < 0.010 NT-Pro-B Natriuret Pep 1274 H 05/10/19 11:45 WBC RBC Hgb Hct MCV MCH MCHC RDW Plt Count Lymph % (Auto) [place] % (Auto) Eos % (Auto) Baso % (Auto) Lymph # [place] # Eos # Baso # Seg Neutrophils % Seg Neutrophils # PT 13.6 INR 1.07 Sodium Potassium Chloride Carbon Dioxide Anion Gap BUN Creatinine Estimated GFR BUN/Creatinine Ratio Glucose Lactic Acid Calcium Total Creatine Kinase CK-MB (CK-2) CK-MB (CK-2) Rel Index Troponin T NT-Pro-B Natriuret Pep - EKG Data -: EKG Interpreted by Me Rate: normal - EKG Data When compared to previous EKG there are: previous EKG unavailable Interpretation: other (paced rhythm) - Radiology Data Radiology results: image reviewed (CXR) interpreted by me: CXR- no focal in - Differential Diagnosis pneumonia, bronchitis Critical care attestation.: If time is entered above; I have spent that time in minutes in the direct care of this critically ill patient, excluding procedure time. ED Disposition Clinical Impression: Chest pain, Shortness of breath Disposition: 09 OP ADMIT IP TO THIS HOSP Is pt being admited?: Yes Does the pt Need Aspirin: Yes Condition: Fair Instructions: Chest Pain (ED) Referrals: [facility] [Other] - 3-5 Days Time of Disposition: 12:40 (Hospitalist paged (Dr Dumont))
[2019-05-10 12:06] LABS: Basophils % (Auto) 0.2 % (0.0-1.8); Eosinophils # (Auto) 0.1 K/mm3 (0.0-0.4); Eosinophils % (Auto) 0.7 % (0.0-4.3); Hematocrit 36.8 % (35.5-45.6); Hemoglobin 12.7 gm/dl (11.8-15.2); Lymphocytes # (Auto) 1.1 K/mm3 (1.2-5.4); Lymphocytes % (Auto) 12.7 % (13.4-35.0); Mean Corpuscular HGB Conc 35 % (32-34); Mean Corpuscular Volume 90 fl (84-94); Monocytes # (Auto) 0.6 K/mm3 (0.0-0.8); Monocytes % (Auto) 7.6 % (0.0-7.3); Platelet Count 140 K/mm3 (140-440); Red Blood Count 4.11 M/mm3 (3.65-5.03); Red Cell Distribution Width 13.6 % (13.2-15.2)
[2019-05-10 12:19] LABS: INR 1.07 (0.87-1.13)
[2019-05-10 12:23] LABS: Creatine Kinase MB 3.9 ng/mL (0.0-4.0)
[2019-05-10 12:24] LABS: BUN/Creatinine Ratio 18; Blood Urea Nitrogen 22 mg/dL (9-20); Calcium 9.1 mg/dL (8.4-10.2); Hemolysis Index 8
[2019-05-10] MEDS ORDERED: ASPIRIN 325 MG TAB PO ONE (12:39)
--- NOTE | 2019-05-10 12:46 | XRay Report ---
CHEST 1 VIEW INDICATION: SOB, cough. COMPARISON: 07/19/2018 FINDINGS: Support devices: Multilead pacemaker device is in position. Heart: Mild cardiomegaly has decreased slightly since the previous exam. Lungs/Pleura: Mild improvement in pulmonary venous congestion. Trace pleural effusions have resolved. The lungs are generally clear. Additional findings: None. IMPRESSION: Cardiomegaly. Lungs clear. Signer Name: Deyvi Leon Jr, MD Signed: 05/10/2019 12:41 PM Workstation Name: [id number]
--- NOTE | 2019-05-10 13:20 | History and Physical Report ---
History of Present Illness Chief complaint: He keeps coughing and is having problems breathing History of present illness: 77 YO Male with Systolic CHF (EF 10%), DM, MO, Seizure Disorder, CAD, CVA, HLD, A Fib on Therapeutic Anticoagulation with Eliquis, Valvular Heart Disease presents to ED for evaluation. Pt does not provide history. Pt family is at bedside and provides history. As per family, the patient has experienced shortness of breath, coughing episodes, followed by chest discomfort after coughing. EMS notified and upon arrival the patient was found to be in respiratory distress. Pt transported to [facility] for further care and evaluation. Pt seen and evaluated in ED and found to have symptoms consistent with CHF Decompensation, Acidosis, and Hyponatremia. NO reports of fever, chills, palpitations, NVD, prolonged travel/immobility, Individual/Family history of DVT/PE, Syncope, Productive cough, or recent ill contacts. Pt admitted to telemetry and initiated on CHF protocol. Cardiology consulted in ED. Prior admission on 07/19/18 reviewed. All listed medication reconciled at time of admission. Past History Past Medical History: acute MO, atrial fib, diabetes, heart failure, hyperlipidemia, stroke Past Surgical History: valve replacement, CABG, Other (ICD Placement) Social history: . denies: smoking, alcohol abuse, prescription drug abuse Family history: diabetes, hypertension Medications and Allergies Allergies Allergy/AdvReac Type Severity Reaction Status Date / Time warfarin AdvReac Intracranial Verified 07/25/18 14:40 hemorrhage x2 Home Medications Medication Instructions Recorded Confirmed Last Taken Type Carvedilol [Coreg] 6.25 mg PO BID #60 tablet 08/30/16 07/19/18 02/28/17 Rx Clopidogrel [Plavix] 75 mg PO QDAY #30 tablet 08/30/16 07/19/18 02/28/17 Rx Furosemide [Lasix TAB] 40 mg PO QDAY #30 tablet 08/30/16 07/19/18 02/28/17 Rx Pantoprazole [Protonix TAB] 40 mg PO QDAY 03/01/17 07/19/18 02/28/17 History Potassium Chloride 20 meq PO DAILY 03/01/17 07/19/18 02/28/17 History levETIRAcetam [Keppra TAB] 750 mg PO BID #60 tablet 03/02/17 07/19/18 Unknown Rx AtorvaSTATin [Lipitor] 40 mg PO QHS #30 tab 03/14/17 07/19/18 Unknown Rx Lisinopril [Zestril] 10 mg PO QAM 09/01/17 07/19/18 Unknown History Apixaban [Eliquis] 5 mg PO BID #60 tablet 07/24/18 Unknown Rx Review of Systems ROS unobtainable: due to mental status Exam - Constitutional Vitals: Temp Pulse Resp BP Pulse Ox 98.5 F 80 16 122/77 98 05/10/19 11:04 05/10/19 12:18 05/10/19 12:18 05/10/19 12:18 05/10/19 12:18 General appearance: Present: mild distress - EENT Eyes: Present: PERRL ENT: hearing intact, clear oral mucosa - Neck Neck: Present: supple, normal ROM - Respiratory Respiratory effort: normal Respiratory: bilateral: diminished, rhonchi - Cardiovascular Rhythm: irregularly irregular Heart Sounds: Present: S1 & S2. Absent: rub, click - Extremities Extremities: pulses symmetrical, No edema Peripheral Pulses: within normal limits - Abdominal General gastrointestinal: Present: soft, non-tender, non-distended, normal bowel sounds Male genitourinary: Present: normal - Integumentary Integumentary: Present: clear, warm, dry - Musculoskeletal Musculoskeletal: generalized weakness - Psychiatric Psychiatric: no appropriate mood/affect, no intact judgment & insight, no memory intact, no cooperative - Neurologic Neurologic: CNII-XII intact, moves all extremities, no gait normal Results - Labs CBC & Chem 7: 05/10/19 11:45 05/10/19 11:45 Labs: Abnormal lab results 05/10/19 05/10/19 05/10/19 Range/Units 11:45 11:45 11:45 MCHC 35 H (32-34) % Lymph % (Auto) 12.7 L (13.4-35.0) % [place] % (Auto) 7.6 H (0.0-7.3) % Lymph # 1.1 L (1.2-5.4) K/mm3 Seg Neutrophils % 78.8 H (40.0-70.0) % Sodium 130 L (137-145) mmol/L Chloride 95.4 L (98-107) mmol/L Carbon Dioxide 20 L (22-30) mmol/L BUN 22 H (9-20) mg/dL Glucose 268 H (75-100) mg/dL Lactic Acid 2.40 H* (0.7-2.0) mmol/L Total Creatine Kinase 302 H (55-170) units/L NT-Pro-B Natriuret Pep 1274 H (0-900) pg/mL Assessment and Plan - Patient Problems (1) CHF (congestive heart failure) Current Visit: Yes Status: Acute Qualifiers: Heart failure chronicity: acute on chronic Plan to address problem: CHF Protocol: Admit to telemetry, diuresis, monitor uop q shift, strict I/O, daily weight, thyroid panel, magnesium level, afterload reduction, (2) Hyponatremia syndrome Current Visit: Yes Status: Acute Plan to address problem: IVF resuscitation therapy, monitor uop q shift, (3) Acidosis Current Visit: Yes Status: Acute Plan to address problem: monitor uop q shift, supportive care. (4) Atrial fibrillation Current Visit: Yes Status: Acute Qualifiers: Atrial fibrillation type: other persistent Qualified Code(s): I48.19 - Other persistent atrial fibrillation Plan to address problem: supportive care, rate control. (5) Severe malnutrition Current Visit: Yes Status: Acute Plan to address problem: Encourage increased protein intake, dietary supplementation. (6) Encephalopathy Current Visit: Yes Status: Acute Plan to address problem: CT Head, neuro checks (7) Seizure disorder Current Visit: Yes Status: Acute Plan to address problem: Keppra level, continue keppra thrapy, seizure precautions. (8) DVT prophylaxis Current Visit: Yes Status: Acute Plan to address problem: SCD to ble while in bed, prophylactic lovenox
[2019-05-10] MEDS ORDERED: ALBUTEROL 2.5 MG/3 ML NEBU IH PRN (14:05)
[2019-05-10] MEDS ORDERED: NITROGLYCERIN 0.4 MG TAB SUBL SL PRN (14:05)
[2019-05-10] MEDS ORDERED: ONDANSETRON 4 MG/2 ML INJ IV PRN (14:05)
--- NOTE | 2019-05-10 19:09 | Cat Scan Report ---
CT HEAD WITHOUT CONTRAST INDICATION / CLINICAL INFORMATION: confusion. Altered mental status. TECHNIQUE: All CT scans at this location are performed using CT dose reduction for ALARA by means of automated e xposure control. COMPARISON: Head CT 03/02/2017. FINDINGS: HEMORRHAGE: No evidence of intracranial hemorrhage or extra-axial fluid collection. EXTRA-AXIAL SPACES: Cortical sulci and sylvian fissures are enlarged reflecting a degree of parenchym al volume loss which is within normal limits for the patient's age. Basilar cisterns have an unremark able appearance. VENTRICULAR SYSTEM: The third and lateral ventricles are enlarged reflecting resonance of age related parenchymal volume loss. CEREBRAL PARENCHYMA: Incidental note is made of lateral physiological basal ganglia calcifications. P eriventricular and deep white matter lucency is observed. This is probably secondary to microvascular ischemic change. There is no indication of recent infarction. No areas of encephalomalacia are ident ified. MIDLINE SHIFT OR HERNIATION: There is no mass effect. CEREBELLUM / BRAINSTEM: Brainstem and cerebellum have an unremarkable appearance. INTRACRANIAL VESSELS:Calcified atherosclerotic plaque is present along the course of the cavernous se gments of both internal carotid arteries. Similar findings are seen at the distal vertebral arteries. ORBITS: visualized portions of the orbits have an unremarkable appearance. SOFT TISSUES of HEAD: No significant abnormality. CALVARIUM: Evaluation of bone windows reveals no abnormalities. PARANASAL SINUSES / MASTOID AIR CELLS: Paranasal sinuses are free from inflammatory mucosal disease. Mastoid air cells are normally pneumatized. IMPRESSION: 1. Age-related involutional changes of parenchymal volume loss and microvascular ischemic change. 2. No acute intracranial abnormality. No interval change in comparison to study dated 03/02/2017. Signer Name: Sammy Sanabria MD Signed: 05/10/2019 7:04 PM Workstation Name: [id number]
[2019-05-10 20:19] LABS: Bilirubin,Urine NEG (Negative); Blood,Urine SM (Negative); Color,Urine Yellow (Yellow); Mucus,Urine FEW /HPF; Protein,Urine <15 mg/dL mg/dL (Negative); Urobilinogen,Urine < 2.0 mg/dL (<2.0); WBC,Urine < 1.0 /HPF (0.0-6.0)
[2019-05-10 20:56] LABS: Free T4 (Free Thyroxine) 1.29 ng/dL (0.76-1.46)
[2019-05-10] MEDS: levETIRAcetam 500 MG TAB PO SCH (21:26)
[2019-05-10] MEDS: APIXABAN 5 MG TAB PO SCH (21:26)
[2019-05-10] MEDS: carvediloL 6.25 MG TAB PO SCH (21:26)
[2019-05-11] MEDS: FUROSEMIDE 40 MG/4 ML INJ IV SCH ×2 (06:41→18:48)
--- NOTE | 2019-05-11 09:38 | Consultation ---
History of Present Illness Consult date: 05/11/19 Consult reason: shortness of breath History of present illness: Patient is a 78 year old male occitan well known to our service who is presenting with shortness of breath. His symptoms on admission appear to have abated completely. This morning he states that he is feeling good and denies chest pain or shortness of breath. Tele is showing V-pacing with a background of atrial fibrillation. Past History Past Medical History: acute ND, atrial fib, diabetes, heart failure, hyperlipidemia, stroke Past Surgical History: valve replacement, CABG, Other (ICD Placement) Social history: . denies: smoking, alcohol abuse, prescription drug abuse Family history: diabetes, hypertension Medications and Allergies Allergies Allergy/AdvReac Type Severity Reaction Status Date / Time warfarin AdvReac Intracranial Verified 07/25/18 14:40 hemorrhage x2 Home Medications Medication Instructions Recorded Confirmed Last Taken Type Carvedilol [Coreg] 6.25 mg PO BID #60 tablet 08/30/16 07/19/18 02/28/17 Rx Clopidogrel [Plavix] 75 mg PO QDAY #30 tablet 08/30/16 07/19/18 02/28/17 Rx Furosemide [Lasix TAB] 40 mg PO QDAY #30 tablet 08/30/16 07/19/18 02/28/17 Rx Pantoprazole [Protonix TAB] 40 mg PO QDAY 03/01/17 07/19/18 02/28/17 History Potassium Chloride 20 meq PO DAILY 03/01/17 07/19/18 02/28/17 History levETIRAcetam [Keppra TAB] 750 mg PO BID #60 tablet 03/02/17 07/19/18 Unknown Rx AtorvaSTATin [Lipitor] 40 mg PO QHS #30 tab 03/14/17 07/19/18 Unknown Rx Lisinopril [Zestril] 10 mg PO QAM 09/01/17 07/19/18 Unknown History Apixaban [Eliquis] 5 mg PO BID #60 tablet 07/24/18 Unknown Rx Active Meds: Active Medications Acetaminophen (Tylenol) 650 mg PO Q4H PRN PRN Reason: Pain MILD(1-3)/Fever >100.5/WELCH Albuterol (Proventil) 2.5 mg IH Q4HRT PRN PRN Reason: Shortness Of Breath Apixaban (Eliquis) 5 mg PO BID [facility]; Protocol Last Admin: 05/10/19 21:26 Dose: 5 mg Documented by: Atorvastatin Calcium (Lipitor) 40 mg PO QHS [facility] Last Admin: 05/10/19 21:26 Dose: 40 mg Documented by: Carvedilol (Coreg) 6.25 mg PO BID [facility] Last Admin: 05/10/19 21:26 Dose: 6.25 mg Documented by: Clopidogrel Bisulfate (Plavix) 75 mg PO QDAY [facility] Furosemide (Lasix) 40 mg IV 0600,1800 [facility] Last Admin: 05/11/19 06:41 Dose: 40 mg Documented by: Levetiracetam (Keppra) 750 mg PO BID [facility] Last Admin: 05/10/19 21:26 Dose: 750 mg Documented by: Lisinopril (Zestril) 10 mg PO QAM [facility] Nitroglycerin (Nitrostat) 0.4 mg SL .Q5MIN PRN PRN Reason: Chest Pain Ondansetron HCl (Zofran) 4 mg IV Q8H PRN PRN Reason: Nausea And Vomiting Pantoprazole Sodium (Protonix) 40 mg PO QDAY [facility] Potassium Chloride (K-Dur) 20 meq PO QDAY [facility] Sodium Chloride (Sodium Chloride Flush Syringe 10 Ml) 10 ml IV BID [facility] Last Admin: 05/10/19 21:27 Dose: 10 ml Documented by: Sodium Chloride (Sodium Chloride Flush Syringe 10 Ml) 10 ml IV PRN PRN PRN Reason: LINE FLUSH Review of Systems All systems: negative Physical Examination Vital Signs Temp Pulse Resp BP Pulse Ox 98.5 F 71 18 129/68 97 05/10/19 11:04 05/10/19 11:04 05/10/19 11:04 05/10/19 11:04 05/10/19 11:04 General appearance: no acute distress HEENT: Positive: PERRL Neck: Positive: neck supple Cardiac: Positive: Reg Rate and Rhythm, Systolic Murmur Lungs: Positive: Normal Exam Results 05/10/19 11:45 05/10/19 11:45 Cardiac Enzymes 05/10/19 05/10/19 05/10/19 Range/Units 11:45 11:45 11:45 WBC 8.3 (4.5-11.0) K/mm3 RBC 4.11 (3.65-5.03) M/mm3 Hgb 12.7 (11.8-15.2) gm/dl Hct 36.8 (35.5-45.6) % MCV 90 (84-94) fl MCH 31 (28-32) pg MCHC 35 H (32-34) % RDW 13.6 (13.2-15.2) % Plt Count 140 (140-440) K/mm3 Lymph % (Auto) 12.7 L (13.4-35.0) % [place] % (Auto) 7.6 H (0.0-7.3) % Eos % (Auto) 0.7 (0.0-4.3) % Baso % (Auto) 0.2 (0.0-1.8) % Lymph # 1.1 L (1.2-5.4) K/mm3 [place] # 0.6 (0.0-0.8) K/mm3 Eos # 0.1 (0.0-0.4) K/mm3 Baso # 0.0 (0.0-0.1) K/mm3 Seg Neutrophils % 78.8 H (40.0-70.0) % Seg Neutrophils # 6.5 (1.8-7.7) K/mm3 PT (12.2-14.9) Sec. INR (0.87-1.13) Sodium 130 L (137-145) mmol/L Potassium 4.7 (3.6-5.0) mmol/L Chloride 95.4 L (98-107) mmol/L Carbon Dioxide 20 L (22-30) mmol/L Anion Gap 19 mmol/L BUN 22 H (9-20) mg/dL Creatinine 1.2 (0.8-1.5) mg/dL Estimated GFR 59 ml/min BUN/Creatinine Ratio 18 % Glucose 268 H (75-100) mg/dL Lactic Acid 2.40 H* (0.7-2.0) mmol/L Calcium 9.1 (8.4-10.2) mg/dL Magnesium (1.7-2.3) mg/dL Total Creatine Kinase 302 H (55-170) units/L CK-MB (CK-2) 3.9 (0.0-4.0) ng/mL CK-MB (CK-2) Rel Index 1.2 (0-4) Troponin T < 0.010 (0.00-0.029) ng/mL NT-Pro-B Natriuret Pep 1274 H (0-900) pg/mL TSH (0.270-4.200) mlU/mL Free T4 (0.76-1.46) ng/dL Urine Color (Yellow) Urine Turbidity (Clear) Urine pH (5.0-7.0) Ur Specific [place] (1.003-1.030) Urine Protein (Negative) mg/dL Urine Glucose (UA) (Negative) mg/dL Urine Ketones (Negative) mg/dL Urine Blood (Negative) Urine Nitrite (Negative) Urine Bilirubin (Negative) Urine Urobilinogen (<2.0) mg/dL Ur Leukocyte Esterase (Negative) Urine WBC (Auto) (0.0-6.0) /HPF Urine RBC (Auto) (0.0-6.0) /HPF Urine Mucus /HPF 05/10/19 05/10/19 05/10/19 Range/Units 11:45 13:12 19:04 WBC (4.5-11.0) K/mm3 RBC (3.65-5.03) M/mm3 Hgb (11.8-15.2) gm/dl Hct (35.5-45.6) % MCV (84-94) fl MCH (28-32) pg MCHC (32-34) % RDW (13.2-15.2) % Plt Count (140-440) K/mm3 Lymph % (Auto) (13.4-35.0) % [place] % (Auto) (0.0-7.3) % Eos % (Auto) (0.0-4.3) % Baso % (Auto) (0.0-1.8) % Lymph # (1.2-5.4) K/mm3 [place] # (0.0-0.8) K/mm3 Eos # (0.0-0.4) K/mm3 Baso # (0.0-0.1) K/mm3 Seg Neutrophils % (40.0-70.0) % Seg Neutrophils # (1.8-7.7) K/mm3 PT 13.6 (12.2-14.9) Sec. INR 1.07 (0.87-1.13) Sodium (137-145) mmol/L Potassium (3.6-5.0) mmol/L Chloride (98-107) mmol/L Carbon Dioxide (22-30) mmol/L Anion Gap mmol/L BUN (9-20) mg/dL Creatinine (0.8-1.5) mg/dL Estimated GFR ml/min BUN/Creatinine Ratio % Glucose (75-100) mg/dL Lactic Acid 2.00 (0.7-2.0) mmol/L Calcium (8.4-10.2) mg/dL Magnesium (1.7-2.3) mg/dL Total Creatine Kinase (55-170) units/L CK-MB (CK-2) (0.0-4.0) ng/mL CK-MB (CK-2) Rel Index (0-4) Troponin T (0.00-0.029) ng/mL NT-Pro-B Natriuret Pep (0-900) pg/mL TSH (0.270-4.200) mlU/mL Free T4 (0.76-1.46) ng/dL Urine Color Yellow (Yellow) Urine Turbidity Clear (Clear) Urine pH 7.0 (5.0-7.0) Ur Specific [place] 1.008 (1.003-1.030) Urine Protein <15 mg/dl (Negative) mg/dL Urine Glucose (UA) >=500 (Negative) mg/dL Urine Ketones Neg (Negative) mg/dL Urine Blood Sm (Negative) Urine Nitrite Neg (Negative) Urine Bilirubin Neg (Negative) Urine Urobilinogen < 2.0 (<2.0) mg/dL Ur Leukocyte Esterase Neg (Negative) Urine WBC (Auto) < 1.0 (0.0-6.0) /HPF Urine RBC (Auto) 3.0 (0.0-6.0) /HPF Urine Mucus Few /HPF 05/10/19 05/10/19 Range/Units 19:47 19:47 WBC (4.5-11.0) K/mm3 RBC (3.65-5.03) M/mm3 Hgb (11.8-15.2) gm/dl Hct (35.5-45.6) % MCV (84-94) fl MCH (28-32) pg MCHC (32-34) % RDW (13.2-15.2) % Plt Count (140-440) K/mm3 Lymph % (Auto) (13.4-35.0) % [place] % (Auto) (0.0-7.3) % Eos % (Auto) (0.0-4.3) % Baso % (Auto) (0.0-1.8) % Lymph # (1.2-5.4) K/mm3 [place] # (0.0-0.8) K/mm3 Eos # (0.0-0.4) K/mm3 Baso # (0.0-0.1) K/mm3 Seg Neutrophils % (40.0-70.0) % Seg Neutrophils # (1.8-7.7) K/mm3 PT (12.2-14.9) Sec. INR (0.87-1.13) Sodium (137-145) mmol/L Potassium (3.6-5.0) mmol/L Chloride (98-107) mmol/L Carbon Dioxide (22-30) mmol/L Anion Gap mmol/L BUN (9-20) mg/dL Creatinine (0.8-1.5) mg/dL Estimated GFR ml/min BUN/Creatinine Ratio % Glucose (75-100) mg/dL Lactic Acid (0.7-2.0) mmol/L Calcium (8.4-10.2) mg/dL Magnesium 2.10 (1.7-2.3) mg/dL Total Creatine Kinase (55-170) units/L CK-MB (CK-2) (0.0-4.0) ng/mL CK-MB (CK-2) Rel Index (0-4) Troponin T (0.00-0.029) ng/mL NT-Pro-B Natriuret Pep (0-900) pg/mL TSH 0.773 (0.270-4.200) mlU/mL Free T4 1.29 (0.76-1.46) ng/dL Urine Color (Yellow) Urine Turbidity (Clear) Urine pH (5.0-7.0) Ur Specific [place] (1.003-1.030) Urine Protein (Negative) mg/dL Urine Glucose (UA) (Negative) mg/dL Urine Ketones (Negative) mg/dL Urine Blood (Negative) Urine Nitrite (Negative) Urine Bilirubin (Negative) Urine Urobilinogen (<2.0) mg/dL Ur Leukocyte Esterase (Negative) Urine WBC (Auto) (0.0-6.0) /HPF Urine RBC (Auto) (0.0-6.0) /HPF Urine Mucus /HPF Coagulation 05/10/19 Range/Units 11:45 PT 13.6 (12.2-14.9) Sec. INR 1.07 (0.87-1.13) CBC 05/10/19 Range/Units 11:45 WBC 8.3 (4.5-11.0) K/mm3 RBC 4.11 (3.65-5.03) M/mm3 Hgb 12.7 (11.8-15.2) gm/dl Hct 36.8 (35.5-45.6) % Plt Count 140 (140-440) K/mm3 Lymph # 1.1 L (1.2-5.4) K/mm3 [place] # 0.6 (0.0-0.8) K/mm3 Eos # 0.1 (0.0-0.4) K/mm3 Baso # 0.0 (0.0-0.1) K/mm3 Comprehensive Metabolic Panel 05/10/19 Range/Units 11:45 Sodium 130 L (137-145) mmol/L Potassium 4.7 (3.6-5.0) mmol/L Chloride 95.4 L (98-107) mmol/L Carbon Dioxide 20 L (22-30) mmol/L BUN 22 H (9-20) mg/dL Creatinine 1.2 (0.8-1.5) mg/dL Glucose 268 H (75-100) mg/dL Calcium 9.1 (8.4-10.2) mg/dL - EKG Interpretation EKG shows: atrial fibrillation EKG interpretations - Telemetry EKG Rhythm: Atrial Fibrillation Pacemaker: ventricular pacing w/capt Assessment and Plan Shortness of breath - resolved Acute on chronic systolic heart failure - improved Nonischemic Cardiomyopathy C negative x 2 (2004 and 2010) no ischemia on MPI 03/2017 Presence of AICD Hx of Mitral valve replacement normal functioning bioprosthetic MVR on echo 08/2017 Hx of CVA Chronic atrial fibrillation Hx of 2 intracranial hemorrhage events in recent years while on Coumadin at standard therapeutic doses Seizure disorder Hypertension Recurrent large left atrial thrombus he was referred to CT surgery at [place], was not felt to be a candidate for another thoracic surgery for removal of the thrombus. It was at that time that [facility]. Hyponatremia Recommendations: Continue medical therapy for heart failure. Monitor sodium and renal function As outpatient he will follow-up with Dr Rosenthal No further inpatient cardiac work-up is needed
[2019-05-11] MEDS: LISINOPRIL 10 MG TAB PO SCH (10:00)
[2019-05-11] MEDS: APIXABAN 5 MG TAB PO SCH ×2 (10:00→22:44)
[2019-05-11] MEDS ORDERED: POTASSIUM CHLORIDE 20 MEQ PO SCH (10:00)
[2019-05-11] MEDS: carvediloL 6.25 MG TAB PO SCH ×2 (10:00→22:48)
[2019-05-11] MEDS ORDERED: CLOPIDOGREL 75 MG TAB PO SCH (10:00)
[2019-05-11] MEDS: PANTOPRAZOLE 40 MG TAB PO SCH (10:00)
[2019-05-11] MEDS: levETIRAcetam 500 MG TAB PO SCH ×2 (10:01→22:43)
[2019-05-11] MEDS: POTASSIUM CHLORIDE ER 20 MEQ TAB PO SCH (10:02)
[2019-05-11] MEDS: ACETAMINOPHEN 325 MG TAB PO PRN (11:47)
--- NOTE | 2019-05-11 17:25 | Progress Note ---
Assessment and Plan Assessment and plan: --Chronic atrial fibrillation; now rate controlled Continue eliquis, rate of blockers --History of seizure disorder; seizure precautions Antiepileptic medications, do not drive --Nonischemic cardiomyopathy;EF 10-15% Heart Negative in 2004 and 2010 Stress test negative in 2017 --History of AICD; stable cardiology following --History of CVA; supportive care Aspirin and statin --Acute on chronic systolic congestive heart failure; LVEF 10-15% Symptoms slightly improved, continue CHF medications, Input and output monitoring. Fluid restriction --History of left atrial thrombus; Evaluated by CT surgeons in the past, not a candidate for CT surgery for removal of thrombus, and they recommendedEliquis --History of mitral valve replacement/bioprosthetic; Supportive care, cardiology following --Hypertension; moderate control; Continue current antihypertensives and when necessary medications --Hyponatremia; due to CHF Adjust medications, monitor electrolytes --DVT prophylaxis; patient is on Eliquis Continue current management. DC planning per case management. History Interval history: Patient seen and examines Medical records reviewed Patient has mild shortness of breath. Denies chest pain Vitals reviewed Hospitalist Physical - Constitutional Vitals: Temp Pulse Resp BP Pulse Ox 97.7 F 71 18 117/66 97 05/11/19 08:15 05/11/19 15:00 05/11/19 10:00 05/11/19 10:00 05/11/19 10:00 General appearance: Present: mild distress, well-nourished, cachectic - EENT Eyes: Present: PERRL, EOM intact - Neck Neck: Present: supple, normal ROM - Respiratory Respiratory effort: labored Respiratory: bilateral: diminished, rales, negative: rhonchi, wheezing - Cardiovascular Rhythm: regular Heart Sounds: Present: S1 & S2 - Extremities Extremities: no ischemia, pulses intact - Abdominal General gastrointestinal: soft, non-tender, non-distended - Integumentary Integumentary: Present: clear, warm - Psychiatric Psychiatric: appropriate mood/affect, cooperative - Neurologic Neurologic: CNII-XII intact, moves all extremities Results - Labs CBC & Chem 7: 05/10/19 11:45 05/10/19 11:45 Labs: Laboratory Last Values WBC 8.3 K/mm3 (4.5-11.0) 05/10/19 11:45 RBC 4.11 M/mm3 (3.65-5.03) 05/10/19 11:45 Hgb 12.7 gm/dl (11.8-15.2) 05/10/19 11:45 Hct 36.8 % (35.5-45.6) 05/10/19 11:45 MCV 90 fl (84-94) 05/10/19 11:45 MCH 31 pg (28-32) 05/10/19 11:45 MCHC 35 % (32-34) H 05/10/19 11:45 RDW 13.6 % (13.2-15.2) 05/10/19 11:45 Plt Count 140 K/mm3 (140-440) 05/10/19 11:45 Lymph % (Auto) 12.7 % (13.4-35.0) L 05/10/19 11:45 [place] % (Auto) 7.6 % (0.0-7.3) H 05/10/19 11:45 Eos % (Auto) 0.7 % (0.0-4.3) 05/10/19 11:45 Baso % (Auto) 0.2 % (0.0-1.8) 05/10/19 11:45 Lymph # 1.1 K/mm3 (1.2-5.4) L 05/10/19 11:45 [place] # 0.6 K/mm3 (0.0-0.8) 05/10/19 11:45 Eos # 0.1 K/mm3 (0.0-0.4) 05/10/19 11:45 Baso # 0.0 K/mm3 (0.0-0.1) 05/10/19 11:45 Seg Neutrophils % 78.8 % (40.0-70.0) H 05/10/19 11:45 Seg Neutrophils # 6.5 K/mm3 (1.8-7.7) 05/10/19 11:45 PT 13.6 Sec. (12.2-14.9) 05/10/19 11:45 INR 1.07 (0.87-1.13) 05/10/19 11:45 Sodium 130 mmol/L (137-145) L 05/10/19 11:45 Potassium 4.7 mmol/L (3.6-5.0) 05/10/19 11:45 Chloride 95.4 mmol/L (98-107) L 05/10/19 11:45 Carbon Dioxide 20 mmol/L (22-30) L 05/10/19 11:45 Anion Gap 19 mmol/L 05/10/19 11:45 BUN 22 mg/dL (9-20) H 05/10/19 11:45 Creatinine 1.2 mg/dL (0.8-1.5) 05/10/19 11:45 Estimated GFR 59 ml/min 05/10/19 11:45 BUN/Creatinine Ratio 18 % 05/10/19 11:45 Glucose 268 mg/dL (75-100) H 05/10/19 11:45 Lactic Acid 2.00 mmol/L (0.7-2.0) 05/10/19 13:12 Calcium 9.1 mg/dL (8.4-10.2) 05/10/19 11:45 Magnesium 2.10 mg/dL (1.7-2.3) 05/10/19 19:47 Total Creatine Kinase 302 units/L (55-170) H 05/10/19 11:45 CK-MB (CK-2) 3.9 ng/mL (0.0-4.0) 05/10/19 11:45 CK-MB (CK-2) Rel Index 1.2 (0-4) 05/10/19 11:45 Troponin T < 0.010 ng/mL (0.00-0.029) 05/10/19 11:45 NT-Pro-B Natriuret Pep 1274 pg/mL (0-900) H 05/10/19 11:45 TSH 0.773 mlU/mL (0.270-4.200) 05/10/19 19:47 Free T4 1.29 ng/dL (0.76-1.46) 05/10/19 19:47 Urine Color Yellow (Yellow) 05/10/19 19:04 Urine Turbidity Clear (Clear) 05/10/19 19:04 Urine pH 7.0 (5.0-7.0) 05/10/19 19:04 Ur Specific [place] 1.008 (1.003-1.030) 05/10/19 19:04 Urine Protein <15 mg/dl mg/dL (Negative) 05/10/19 19:04 Urine Glucose (UA) >=500 mg/dL (Negative) 05/10/19 19:04 Urine Ketones Neg mg/dL (Negative) 05/10/19 19:04 Urine Blood Sm (Negative) 05/10/19 19:04 Urine Nitrite Neg (Negative) 05/10/19 19:04 Urine Bilirubin Neg (Negative) 05/10/19 19:04 Urine Urobilinogen < 2.0 mg/dL (<2.0) 05/10/19 19:04 Ur Leukocyte Esterase Neg (Negative) 05/10/19 19:04 Urine WBC (Auto) < 1.0 /HPF (0.0-6.0) 05/10/19 19:04 Urine RBC (Auto) 3.0 /HPF (0.0-6.0) 05/10/19 19:04 Urine Mucus Few /HPF 05/10/19 19:04 Active Medications - Current Medications Current Medications: Generic Name Dose Route Start Last Admin Trade Name Freq PRN Reason Stop Dose Admin Acetaminophen 650 mg 05/10/19 14:05 05/11/19 11:47 Tylenol PO 650 mg Q4H PRN Administration Pain MILD(1-3)/Fever >100.5/WELCH Albuterol 2.5 mg 05/10/19 14:05 Proventil IH Q4HRT PRN Shortness Of Breath Apixaban 5 mg 05/10/19 22:00 05/11/19 10:00 Eliquis PO 5 mg BID RANDA Administration Protocol Atorvastatin Calcium 40 mg 05/10/19 22:00 05/10/19 21:26 Lipitor PO 40 mg QHS RANDA Administration Carvedilol 6.25 mg 05/10/19 22:00 05/11/19 10:00 Coreg PO 6.25 mg BID RANDA Administration Furosemide 40 mg 05/11/19 06:00 05/11/19 06:41 Lasix IV 40 mg 0600,1800 RANDA Administration Levetiracetam 750 mg 05/10/19 22:00 05/11/19 10:01 Keppra PO 750 mg BID RANDA Administration Lisinopril 10 mg 05/11/19 10:00 05/11/19 10:00 Zestril PO 10 mg QAM RANDA Administration Nitroglycerin 0.4 mg 05/10/19 14:05 Nitrostat SL .Q5MIN PRN Chest Pain Ondansetron HCl 4 mg 05/10/19 14:05 Zofran IV Q8H PRN Nausea And Vomiting Pantoprazole Sodium 40 mg 05/11/19 10:00 05/11/19 10:00 Protonix PO 40 mg QDAY RANDA Administration Potassium Chloride 20 meq 05/11/19 10:00 05/11/19 10:02 K-Dur PO 20 meq QDAY RANDA Administration Sodium Chloride 10 ml 05/10/19 22:00 05/11/19 10:02 Sodium Chloride Flush Syringe 10 Ml IV 10 ml BID RANDA Administration Sodium Chloride 10 ml 05/10/19 14:05 Sodium Chloride Flush Syringe 10 Ml IV PRN PRN LINE FLUSH
[2019-05-12] MEDS: FUROSEMIDE 40 MG/4 ML INJ IV SCH ×2 (06:18→18:36)
[2019-05-12] MEDS: carvediloL 6.25 MG TAB PO SCH ×2 (09:30→22:22)
[2019-05-12] MEDS: POTASSIUM CHLORIDE ER 20 MEQ TAB PO SCH (09:45)
[2019-05-12] MEDS: levETIRAcetam 500 MG TAB PO SCH ×2 (09:45→22:19)
[2019-05-12] MEDS: PANTOPRAZOLE 40 MG TAB PO SCH (09:46)
[2019-05-12] MEDS: APIXABAN 5 MG TAB PO SCH ×2 (09:46→22:20)
[2019-05-12] MEDS: ACETAMINOPHEN 325 MG TAB PO PRN (09:55)
[2019-05-12] MEDS: LISINOPRIL 10 MG TAB PO SCH (10:30)
--- NOTE | 2019-05-12 11:45 | Progress Note ---
Subjective Date of service: 05/12/19 Interval history: Assessment and Plan Shortness of breath - resolved Acute on chronic systolic heart failure - improved Nonischemic Cardiomyopathy [facility] negative x 2 (2004 and 2010) no ischemia on MPI 03/2017 Presence of AICD Hx of Mitral valve replacement normal functioning bioprosthetic MVR on echo 08/2017 Hx of CVA Chronic atrial fibrillation Hx of 2 intracranial hemorrhage events in recent years while on Coumadin at standard therapeutic doses Seizure disorder Hypertension Recurrent large left atrial thrombus he was referred to CT surgery at [place], was not felt to be a candidate for another thoracic surgery for removal of the thrombus. It was at that time that he was recommended for Eliquis for anticoagulation. Hyponatremia Recommendations: Continue medical therapy for heart failure. Monitor sodium and renal function As outpatient he will follow-up with Dr Rosenthal No further inpatient cardiac work-up is needed Objective Vital Signs Temp Pulse Resp BP BP Pulse Ox 05/12/19 09:43 70 98/57 05/12/19 07:59 97.5 F L 70 18 84/48 99 05/12/19 05:09 97.8 F 05/12/19 05:07 70 18 102/60 96 05/11/19 23:19 98.4 F 05/11/19 23:12 70 18 90/48 93 05/11/19 22:48 71 95/53 05/11/19 22:00 20 96 05/11/19 20:09 97.6 F 05/11/19 20:08 71 20 95/53 96 05/11/19 19:36 70 05/11/19 18:34 18 86/48 05/11/19 17:23 70 99 05/11/19 15:00 71 05/11/19 12:15 97.5 F L 70 18 104/60 97 - Physical Examination General: No Apparent Distress HEENT: Positive: PERRL Neck: Positive: neck supple Cardiac: Positive: Reg Rate and Rhythm, S1/S2 Lungs: Positive: clear to auscultation Pacemaker: ventricular pacing w/capt
--- NOTE | 2019-05-12 11:46 | Progress Note ---
Assessment and Plan Assessment and plan: --Nonischemic cardiomyopathy; Heart Negative in 2004 and 2010 Stress test negative in 2017 --History of AICD; stable cardiology following --History of CVA; supportive care Aspirin and statin --Acute on chronic systolic congestive heart failure; Symptoms slightly improved, continue CHF medications Input and output monitoring --Chronic atrial fibrillation; now rate controlled Continue eliquis, rate of blockers --History of seizure disorder; seizure precautions Antiepileptic medications, do not drive --History of left atrial thrombus; Evaluated by CT surgeons in the past, not a candidate for CT surgery for removal of thrombus, and they recommendedEliquis --History of mitral valve replacement/bioprosthetic; Supportive care, cardiology following --Hypertension; moderate control; Continue current antihypertensives and when necessary medications --Hyponatremia; due to CHF Adjust medications, monitor electrolytes --DVT prophylaxis; patient is on Eliquis Continue current management Consults and recommendations noted and appreciated Possible discharge home tomorrow if stable History Interval history: Patient seen and examined medical records reviewed Patient has no new complaints Vital signs reviewed Hospitalist Physical - Constitutional Vitals: Temp Pulse Resp BP Pulse Ox 97.5 F L 70 18 98/57 99 05/12/19 07:59 05/12/19 09:43 05/12/19 07:59 05/12/19 09:43 05/12/19 07:59 General appearance: Present: no acute distress, well-nourished - EENT Eyes: Present: PERRL, EOM intact - Neck Neck: Present: supple, normal ROM - Respiratory Respiratory effort: normal Respiratory: bilateral: diminished, negative: rales, rhonchi, wheezing - Cardiovascular Rhythm: regular Heart Sounds: Present: S1 & S2 - Extremities Extremities: no ischemia, No edema - Abdominal General gastrointestinal: soft, non-tender, non-distended, normal bowel sounds - Integumentary Integumentary: Present: clear, warm - Psychiatric Psychiatric: appropriate mood/affect, cooperative - Neurologic Neurologic: moves all extremities Results - Labs CBC & Chem 7: 05/10/19 11:45 05/10/19 11:45 Labs: Laboratory Last Values WBC 8.3 K/mm3 (4.5-11.0) 05/10/19 11:45 RBC 4.11 M/mm3 (3.65-5.03) 05/10/19 11:45 Hgb 12.7 gm/dl (11.8-15.2) 05/10/19 11:45 Hct 36.8 % (35.5-45.6) 05/10/19 11:45 MCV 90 fl (84-94) 05/10/19 11:45 MCH 31 pg (28-32) 05/10/19 11:45 MCHC 35 % (32-34) H 05/10/19 11:45 RDW 13.6 % (13.2-15.2) 05/10/19 11:45 Plt Count 140 K/mm3 (140-440) 05/10/19 11:45 Lymph % (Auto) 12.7 % (13.4-35.0) L 05/10/19 11:45 [place] % (Auto) 7.6 % (0.0-7.3) H 05/10/19 11:45 Eos % (Auto) 0.7 % (0.0-4.3) 05/10/19 11:45 Baso % (Auto) 0.2 % (0.0-1.8) 05/10/19 11:45 Lymph # 1.1 K/mm3 (1.2-5.4) L 05/10/19 11:45 [place] # 0.6 K/mm3 (0.0-0.8) 05/10/19 11:45 Eos # 0.1 K/mm3 (0.0-0.4) 05/10/19 11:45 Baso # 0.0 K/mm3 (0.0-0.1) 05/10/19 11:45 Seg Neutrophils % 78.8 % (40.0-70.0) H 05/10/19 11:45 Seg Neutrophils # 6.5 K/mm3 (1.8-7.7) 05/10/19 11:45 PT 13.6 Sec. (12.2-14.9) 05/10/19 11:45 INR 1.07 (0.87-1.13) 05/10/19 11:45 Sodium 130 mmol/L (137-145) L 05/10/19 11:45 Potassium 4.7 mmol/L (3.6-5.0) 05/10/19 11:45 Chloride 95.4 mmol/L (98-107) L 05/10/19 11:45 Carbon Dioxide 20 mmol/L (22-30) L 05/10/19 11:45 Anion Gap 19 mmol/L 05/10/19 11:45 BUN 22 mg/dL (9-20) H 05/10/19 11:45 Creatinine 1.2 mg/dL (0.8-1.5) 05/10/19 11:45 Estimated GFR 59 ml/min 05/10/19 11:45 BUN/Creatinine Ratio 18 % 05/10/19 11:45 Glucose 268 mg/dL (75-100) H 05/10/19 11:45 Lactic Acid 2.00 mmol/L (0.7-2.0) 05/10/19 13:12 Calcium 9.1 mg/dL (8.4-10.2) 05/10/19 11:45 Magnesium 2.10 mg/dL (1.7-2.3) 05/10/19 19:47 Total Creatine Kinase 302 units/L (55-170) H 05/10/19 11:45 CK-MB (CK-2) 3.9 ng/mL (0.0-4.0) 05/10/19 11:45 CK-MB (CK-2) Rel Index 1.2 (0-4) 05/10/19 11:45 Troponin T < 0.010 ng/mL (0.00-0.029) 05/10/19 11:45 NT-Pro-B Natriuret Pep 1274 pg/mL (0-900) H 05/10/19 11:45 TSH 0.773 mlU/mL (0.270-4.200) 05/10/19 19:47 Free T4 1.29 ng/dL (0.76-1.46) 05/10/19 19:47 Urine Color Yellow (Yellow) 05/10/19 19:04 Urine Turbidity Clear (Clear) 05/10/19 19:04 Urine pH 7.0 (5.0-7.0) 05/10/19 19:04 Ur Specific [place] 1.008 (1.003-1.030) 05/10/19 19:04 Urine Protein <15 mg/dl mg/dL (Negative) 05/10/19 19:04 Urine Glucose (UA) >=500 mg/dL (Negative) 05/10/19 19:04 Urine Ketones Neg mg/dL (Negative) 05/10/19 19:04 Urine Blood Sm (Negative) 05/10/19 19:04 Urine Nitrite Neg (Negative) 05/10/19 19:04 Urine Bilirubin Neg (Negative) 05/10/19 19:04 Urine Urobilinogen < 2.0 mg/dL (<2.0) 05/10/19 19:04 Ur Leukocyte Esterase Neg (Negative) 05/10/19 19:04 Urine WBC (Auto) < 1.0 /HPF (0.0-6.0) 05/10/19 19:04 Urine RBC (Auto) 3.0 /HPF (0.0-6.0) 05/10/19 19:04 Urine Mucus Few /HPF 05/10/19 19:04 Active Medications - Current Medications Current Medications: Generic Name Dose Route Start Last Admin Trade Name Freq PRN Reason Stop Dose Admin Acetaminophen 650 mg 05/10/19 14:05 05/12/19 09:55 Tylenol PO 650 mg Q4H PRN Administration Pain MILD(1-3)/Fever >100.5/WELCH Albuterol 2.5 mg 05/10/19 14:05 Proventil IH Q4HRT PRN Shortness Of Breath Apixaban 5 mg 05/10/19 22:00 05/12/19 09:46 Eliquis PO 5 mg BID RANDA Administration Protocol Atorvastatin Calcium 40 mg 05/10/19 22:00 05/11/19 22:44 Lipitor PO 40 mg QHS RANDA Administration Carvedilol 6.25 mg 05/10/19 22:00 05/11/19 22:48 Coreg PO Not Given BID RANDA Furosemide 40 mg 05/11/19 06:00 05/12/19 06:18 Lasix IV Not Given 0600,1800 RANDA Levetiracetam 750 mg 05/10/19 22:00 05/12/19 09:45 Keppra PO 750 mg BID RANDA Administration Lisinopril 10 mg 05/11/19 10:00 05/11/19 10:00 Zestril PO 10 mg QAM RANDA Administration Nitroglycerin 0.4 mg 05/10/19 14:05 Nitrostat SL .Q5MIN PRN Chest Pain Ondansetron HCl 4 mg 05/10/19 14:05 Zofran IV Q8H PRN Nausea And Vomiting Pantoprazole Sodium 40 mg 05/11/19 10:00 05/12/19 09:46 Protonix PO 40 mg QDAY RANDA Administration Potassium Chloride 20 meq 05/11/19 10:00 05/12/19 09:45 K-Dur PO 20 meq QDAY RANDA Administration Sodium Chloride 10 ml 05/10/19 22:00 05/12/19 09:57 Sodium Chloride Flush Syringe 10 Ml IV 10 ml BID RANDA Administration Sodium Chloride 10 ml 05/10/19 14:05 Sodium Chloride Flush Syringe 10 Ml IV PRN PRN LINE FLUSH
[2019-05-13] MEDS: FUROSEMIDE 40 MG/4 ML INJ IV SCH ×2 (05:37→17:14)
[2019-05-13] MEDS: POTASSIUM CHLORIDE ER 20 MEQ TAB PO SCH (09:20)
[2019-05-13] MEDS: levETIRAcetam 500 MG TAB PO SCH (09:20)
[2019-05-13] MEDS: APIXABAN 5 MG TAB PO SCH (09:21)
[2019-05-13] MEDS: PANTOPRAZOLE 40 MG TAB PO SCH (09:21)
[2019-05-13] MEDS: carvediloL 6.25 MG TAB PO SCH (09:21)
[2019-05-13] MEDS: LISINOPRIL 10 MG TAB PO SCH (09:22)
--- NOTE | 2019-05-13 13:51 | Discharge Summary ---
Providers - Providers Date of Admission: 05/10/19 14:05 Date of discharge: 05/13/19 Attending physician: AUDRA MISTRY 05/10/19 14:05 Consult to Physician [CONS] Routine Comment: called ans service at 1708 Consulting Provider: MARCE KELLEY Physician Instructions: Reason For Exam: chf Hospitalization Reason for admission: Worsening shortness of breath/Acute on Chroniic Systolic CHF Condition: Fair Pertinent studies: CT head CXR Hospital course: 77 YO Male with Systolic CHF (EF 10%), DM, [place], Seizure Disorder, CAD, CVA, HLD, A Fib on Therapeutic Anticoagulation with Eliquis, Valvular Heart Disease was admitted through ED with worsening shortness of breath.Initial evaluation is consistant with acute on chronic systolic CHF,evaluated by thread puller in consultation,medications optimimised.Patients symptoms signficantly improved.Today patient is comfortable,no new complaints,vital sigs stable,Physical exam prior to discharge is unremarkable.Cleared by cardiology for DC and f/u in the office per schedule. Stable at discharge. Discharge Diagnosis: --Acute on chronic systolic congestive heart failure; EF 10-15% Symptoms slightly improved, continue CHF medications Input and output monitoring --Nonischemic cardiomyopathy; Heart Negative in 2004 and 2010 Stress test negative in 2017 --History of AICD; stable cardiology following --History of CVA; supportive care Aspirin and statin --Chronic atrial fibrillation; now rate controlled Continue eliquis, rate of blockers --History of seizure disorder; seizure precautions Antiepileptic medications, do not drive --History of left atrial thrombus; Evaluated by CT surgeons in the past, not a candidate for CT surgery for removal of thrombus, and they recommendedEliquis --History of mitral valve replacement/bioprosthetic; Supportive care, cardiology following --Hypertension; moderate control; Continue current antihypertensives and when necessary medications --Hyponatremia; due to CHF Adjust medications, monitor electrolytes --DVT prophylaxis; patient is on Eliquis Patient is clinically stable for discharge Unable to reach the family Patient is clinically stable for discharge Disposition: DC-01 TO HOME OR SELFCARE Time spent for discharge: 32 min Core Measure Documentation - Palliative Care Palliative Care/ Comfort Measures: Not Applicable - Core Measures Any of the following diagnoses?: none Exam - Constitutional Vitals: Temp Pulse Resp BP Pulse Ox 98.5 F 70 18 120/64 99 05/13/19 08:08 05/13/19 09:22 05/13/19 08:08 05/13/19 09:22 05/13/19 10:00 General appearance: Present: no acute distress, well-nourished - EENT Eyes: Present: PERRL, EOM intact - Neck Neck: Present: supple, normal ROM - Cardiovascular Rhythm: regular Heart Sounds: Present: S1 & S2 - Extremities Extremities: no ischemia, No edema - Abdominal General gastrointestinal: Present: soft, non-tender, non-distended, normal bowel sounds - Integumentary Integumentary: Present: clear, warm - Musculoskeletal Musculoskeletal: strength equal bilaterally, generalized weakness - Psychiatric Psychiatric: appropriate mood/affect, cooperative - Neurologic Neurologic: moves all extremities Plan Activity: fall precautions Diet: other (cardiac diet) Additional Instructions: Fall precautions. If you have Chest pain or shortness of breath contact M.D. or go to emergency room Follow up with: PEPE SINGLETARY [Other] - 3-5 Days MARCE KELLEY MD [Staff Physician] - 7 Days Prescriptions: Carvedilol [Coreg] 6.25 mg PO BID #60 tablet Apixaban [Eliquis] 5 mg PO BID #60 tablet Potassium Chloride [K-Dur] 10 meq PO QDAY #30 tablet levETIRAcetam [Keppra TAB] 750 mg PO BID #60 tablet Furosemide [Lasix TAB] 40 mg PO QDAY #30 tablet AtorvaSTATin [Lipitor] 40 mg PO QHS #30 tab Clopidogrel [Plavix] 75 mg PO QDAY #30 tablet Pantoprazole [Protonix TAB] 40 mg PO QDAY #20
[2019-05-13 17:21] VITALS: BP 100/56
--- NOTE | 2019-05-13 18:40 | Progress Note ---
Assessment and Plan Assessment and plan: --Nonischemic cardiomyopathy; Heart Negative in 2004 and 2010 Stress test negative in 2017 --History of AICD; stable cardiology following --History of CVA; supportive care Aspirin and statin --Acute on chronic systolic congestive heart failure; Symptoms slightly improved, continue CHF medications Input and output monitoring --Chronic atrial fibrillation; now rate controlled Continue eliquis, rate of blockers --History of seizure disorder; seizure precautions Antiepileptic medications, do not drive --History of left atrial thrombus; Evaluated by CT surgeons in the past, not a candidate for CT surgery for removal of thrombus, and they recommendedEliquis --History of mitral valve replacement/bioprosthetic; Supportive care, cardiology following --Hypertension; moderate control; Continue current antihypertensives and when necessary medications --Hyponatremia; due to CHF Adjust medications, monitor electrolytes --DVT prophylaxis; patient is on Eliquis Patient is clinically stable for discharge Unable to reach the family Continue current management Consults and recommendations noted and appreciated Possible discharge home tomorrow if stable Hospitalist Physical - Constitutional Vitals: Temp Pulse Resp BP Pulse Ox 97.7 F 70 18 100/56 97 05/13/19 17:18 05/13/19 17:18 05/13/19 17:18 05/13/19 17:18 05/13/19 17:18 General appearance: Present: no acute distress Results - Labs CBC & Chem 7: 05/10/19 11:45 05/10/19 11:45 Labs: Laboratory Last Values WBC 8.3 K/mm3 (4.5-11.0) 05/10/19 11:45 RBC 4.11 M/mm3 (3.65-5.03) 05/10/19 11:45 Hgb 12.7 gm/dl (11.8-15.2) 05/10/19 11:45 Hct 36.8 % (35.5-45.6) 05/10/19 11:45 MCV 90 fl (84-94) 05/10/19 11:45 MCH 31 pg (28-32) 05/10/19 11:45 MCHC 35 % (32-34) H 05/10/19 11:45 RDW 13.6 % (13.2-15.2) 05/10/19 11:45 Plt Count 140 K/mm3 (140-440) 05/10/19 11:45 Lymph % (Auto) 12.7 % (13.4-35.0) L 05/10/19 11:45 [place] % (Auto) 7.6 % (0.0-7.3) H 05/10/19 11:45 Eos % (Auto) 0.7 % (0.0-4.3) 05/10/19 11:45 Baso % (Auto) 0.2 % (0.0-1.8) 05/10/19 11:45 Lymph # 1.1 K/mm3 (1.2-5.4) L 05/10/19 11:45 [place] # 0.6 K/mm3 (0.0-0.8) 05/10/19 11:45 Eos # 0.1 K/mm3 (0.0-0.4) 05/10/19 11:45 Baso # 0.0 K/mm3 (0.0-0.1) 05/10/19 11:45 Seg Neutrophils % 78.8 % (40.0-70.0) H 05/10/19 11:45 Seg Neutrophils # 6.5 K/mm3 (1.8-7.7) 05/10/19 11:45 PT 13.6 Sec. (12.2-14.9) 05/10/19 11:45 INR 1.07 (0.87-1.13) 05/10/19 11:45 Sodium 130 mmol/L (137-145) L 05/10/19 11:45 Potassium 4.7 mmol/L (3.6-5.0) 05/10/19 11:45 Chloride 95.4 mmol/L (98-107) L 05/10/19 11:45 Carbon Dioxide 20 mmol/L (22-30) L 05/10/19 11:45 Anion Gap 19 mmol/L 05/10/19 11:45 BUN 22 mg/dL (9-20) H 05/10/19 11:45 Creatinine 1.2 mg/dL (0.8-1.5) 05/10/19 11:45 Estimated GFR 59 ml/min 05/10/19 11:45 BUN/Creatinine Ratio 18 % 05/10/19 11:45 Glucose 268 mg/dL (75-100) H 05/10/19 11:45 Lactic Acid 2.00 mmol/L (0.7-2.0) 05/10/19 13:12 Calcium 9.1 mg/dL (8.4-10.2) 05/10/19 11:45 Magnesium 2.10 mg/dL (1.7-2.3) 05/10/19 19:47 Total Creatine Kinase 302 units/L (55-170) H 05/10/19 11:45 CK-MB (CK-2) 3.9 ng/mL (0.0-4.0) 05/10/19 11:45 CK-MB (CK-2) Rel Index 1.2 (0-4) 05/10/19 11:45 Troponin T < 0.010 ng/mL (0.00-0.029) 05/10/19 11:45 NT-Pro-B Natriuret Pep 1274 pg/mL (0-900) H 05/10/19 11:45 TSH 0.773 mlU/mL (0.270-4.200) 05/10/19 19:47 Free T4 1.29 ng/dL (0.76-1.46) 05/10/19 19:47 Urine Color Yellow (Yellow) 05/10/19 19:04 Urine Turbidity Clear (Clear) 05/10/19 19:04 Urine pH 7.0 (5.0-7.0) 05/10/19 19:04 Ur Specific [place] 1.008 (1.003-1.030) 05/10/19 19:04 Urine Protein <15 mg/dl mg/dL (Negative) 05/10/19 19:04 Urine Glucose (UA) >=500 mg/dL (Negative) 05/10/19 19:04 Urine Ketones Neg mg/dL (Negative) 05/10/19 19:04 Urine Blood Sm (Negative) 05/10/19 19:04 Urine Nitrite Neg (Negative) 05/10/19 19:04 Urine Bilirubin Neg (Negative) 05/10/19 19:04 Urine Urobilinogen < 2.0 mg/dL (<2.0) 05/10/19 19:04 Ur Leukocyte Esterase Neg (Negative) 05/10/19 19:04 Urine WBC (Auto) < 1.0 /HPF (0.0-6.0) 05/10/19 19:04 Urine RBC (Auto) 3.0 /HPF (0.0-6.0) 05/10/19 19:04 Urine Mucus Few /HPF 05/10/19 19:04 Active Medications - Current Medications Current Medications: Generic Name Dose Route Start Last Admin Trade Name Freq PRN Reason Stop Dose Admin Acetaminophen 650 mg 05/10/19 14:05 05/12/19 09:55 Tylenol PO 650 mg Q4H PRN Administration Pain MILD(1-3)/Fever >100.5/WELCH Albuterol 2.5 mg 05/10/19 14:05 Proventil IH Q4HRT PRN Shortness Of Breath Apixaban 5 mg 05/10/19 22:00 05/13/19 09:21 Eliquis PO 5 mg BID RANDA Administration Protocol Atorvastatin Calcium 40 mg 05/10/19 22:00 05/12/19 22:20 Lipitor PO 40 mg QHS RANDA Administration Carvedilol 6.25 mg 05/10/19 22:00 05/13/19 09:21 Coreg PO 6.25 mg BID RANDA Administration Furosemide 40 mg 05/11/19 06:00 05/13/19 17:14 Lasix IV 40 mg 0600,1800 RANDA Administration Levetiracetam 750 mg 05/10/19 22:00 05/13/19 09:20 Keppra PO 750 mg BID RANDA Administration Lisinopril 10 mg 05/11/19 10:00 05/13/19 09:22 Zestril PO 10 mg QAM RANDA Administration Nitroglycerin 0.4 mg 05/10/19 14:05 Nitrostat SL .Q5MIN PRN Chest Pain Ondansetron HCl 4 mg 05/10/19 14:05 Zofran IV Q8H PRN Nausea And Vomiting Pantoprazole Sodium 40 mg 05/11/19 10:00 05/13/19 09:21 Protonix PO 40 mg QDAY RANDA Administration Potassium Chloride 20 meq 05/11/19 10:00 05/13/19 09:20 K-Dur PO 20 meq QDAY RANDA Administration Sodium Chloride 10 ml 05/10/19 22:00 05/13/19 09:22 Sodium Chloride Flush Syringe 10 Ml IV 10 ml BID RANDA Administration Sodium Chloride 10 ml 05/10/19 14:05 Sodium Chloride Flush Syringe 10 Ml IV PRN PRN LINE FLUSH
== END 2019-05-13 18:43 | disposition home or self-care (01) | DRG 291 ==
LOC: ED 10:49 → 4A 14:05
PROVIDERS: ADMIT Internal Medicine; ATTEND Internal Medicine
DX: I11.0 Hypertensive heart disease with heart failure (principal); E43 Unspecified severe protein-calorie malnutrition; G93.40 Encephalopathy, unspecified; E87.2 Acidosis; E87.1 Hypo-osmolality and hyponatremia; I48.20 Chronic atrial fibrillation, unspecified; I50.23 Acute on chronic systolic (congestive) heart failure; I42.8 Other cardiomyopathies; G40.909 Epilepsy, unspecified, not intractable, without status epilepticus; I51.3 Intracardiac thrombosis, not elsewhere classified; E11.9 Type 2 diabetes mellitus without complications; I25.10 Atherosclerotic heart disease of native coronary artery without angina pectoris; Z95.810 Presence of automatic (implantable) cardiac defibrillator; Z86.73 Personal history of transient ischemic attack (TIA), and cerebral infarction without residual deficits; Z95.2 Presence of prosthetic heart valve; Z68.22 Body mass index [BMI] 22.0-22.9, adult; I25.2 Old myocardial infarction; Z95.1 Presence of aortocoronary bypass graft; Z82.49 Family history of ischemic heart disease and other diseases of the circulatory system; Z83.3 Family history of diabetes mellitus; Z79.899 Other long term (current) drug therapy; Z88.8 Allergy status to other drugs, medicaments and biological substances
CPT/HCPCS: 36415; 70450; 71045; 80048; 80177; 81001; 82140; 82550; 82553; 83735; 83880; 84439; 84443; 84484; 85025; 85610; 87040; 93005; 93010; 94640; 94644; 94760; 96374; G0378; A9270-GY; J1940